=== PATIENT | female | born 1970 | race Hispanic/Latino ===

== ENCOUNTER 2021-11-29 22:30 | Emergency (ER) | payer OTHER ==
--- OUTSIDE RECORDS SUMMARY | 2021-11-29 22:41 | XMS REPORT | Continuity of Care Document ---
:1970 Author Organization [facility] t Address [address] [place] [address] Care Team Providers Name Role Phone Kaylin Henry Attending Clinician Unavailable Joanna Sainz Attending Clinician Unavailable Mehran Stevens Attending Clinician Unavailable Michael Jenkins Attending Clinician Unavailable Cordell Martin Attending Clinician Unavailable Petey Lyles Attending Clinician Unavailable Provider, Marleny Davalos Attending Clinician Unavailable Kaylin Henry Attending Clinician Unavailable Kaylin Henry Admitting Clinician Unavailable Petey Lyles Admitting Clinician Unavailable Payers Payer Name Policy Type Policy Number Effective Date Expiration Date S lester Breast and E [id number] 2020 Cervical Cancer 00:00:00 00:00:00 Screen Problems Condition Condition Condition Status Onset Resolution Last Treating Co mments Source Name Details Category Date Date Treatment Clinician Date Abscess of Abscess of Diagnosis Active [facility] ent Clinics Breast Breast Diagnosis Active [facility] cancer, cancer, [facility] - right right [facility] ent Clinics Stage IV Stage IV Problem Active [facility] breast breast [facility] - cancer in cancer in St female female [facility] Problem Condition [facility] Transamina Problem Active [facility]) Abscess Problem Active [facility] and [facility] - cellulitis St. of gluteal [place] region ([place]) Transfusio Problem Active [facility] n-dependen [facility] anemia [facility]) Neoplasm Problem Active [facility] related [facility] pain [facility] Carcinoma Problem Active [facility] of breast [facility] - treated St. with [place] adjuvant ([place]) chemothera py Allergies, Adverse Reactions, Alerts Allergy Allergy Status Severity Reaction(s) Onset Inactive Treating Comm ents Source Name Type Date Date Clinician No Known DA Active U 2019-0 STLSJX Allergie 6-08 s 00:00: 00 No Known DA Active U [address] Allergie 5-30 [facility] s 00:00: St 00 [place] Family History Family Member Diagnosis Comments Start Date Stop Date Source Paternal aunt Family Breast Cancer? [facility] Yes: Bilateral breast Toni eph ([place]) cancer in early 40s Social History Social Habit Start Date Stop Date Quantity Comments Source ASSERTION [facility] ([place]) Sex Assigned At [birth year] Female [facility] - 00:00:00 00:00:00 [facility] Smoking Status Start Date Stop Date Source Unknown if ever smoked [facility] ([place]) Medications Ordered Filled Start Stop Current Ordering Indication Dosage Frequency Signature Comments Components Source Medication Medication Date Date Medication? Clinician (SIG) Name Name Tramadol Tramadol 0 Yes 1TABLET Bedtime [facility] Hcl/Acetami Hcl/Acetami 6-15 L ukes - nophen nophen 15:06: St. 00 [place] ([place]) Tramadol Tramadol 2020-0 Yes 1TABLET Bedtime [facility] Hcl/Acetami Hcl/Acetami 6-15 L ukes - nophen nophen 15:06: St. 00 [place] ([place]) Tramadol Tramadol 2020-0 Yes 1TABLET Bedtime [facility] Hcl/Acetami Hcl/Acetami 6-15 L ukes - nophen nophen 15:06: St. 00 [place] ([place]) Sulfamethox 2020-0 Yes 1TAB Twice [facility] azole/Trime 6-02 Daily [facility] - thoprim 14:39: St. 00 [place] ([place]) Morphine Er Morphine Er 2020-0 Yes 15MG Every [address] 6-02 Hours [facility] - 14:39: St. 00 [place] ([place]) Morphine Er Morphine Er 2020-0 Yes 15MG Every [address] 6-02 Hours [facility] - 14:39: St. 00 [place] ([place]) Morphine Er Morphine Er 2020-0 Yes 15MG Every [address] 6-02 Hours [facility] - 14:39: St. 00 [place] ([place]) Morphine Er Morphine Er 2020-0 Yes 15MG Every [address] 6-02 Hours [facility] - 14:39: St. 00 [place] ([place]) Sulfamethox 2020-0 2020- No 1TAB Twice [facility] azole/Trime 6- 06-15 Daily [facility]ukes - thoprim 14:39: 15:06 St. 00 :00 [place] ([place]) Sulfamethox 2020-0 2020- No 1TAB Twice [facility] azole/Trime 6-02 06-15 Daily Lukes - thoprim 14:39: 15:06 St. 00 :00 [place]) Sulfamethox 2020-0 2020- No 1TAB Twice [facility] azole/Trime 6- 06-15 Daily [facility]ukes - thoprim 14:39: 15:06 St. 00 :00 [place] ([place]) Naproxen Naproxen 2020-0 Yes 250MG Q8H [facility] 5-30 [facility] - 21:24: St. 00 [place] ([place]) Naproxen Naproxen 2020-0 Yes 250MG Q8H [facility] 5-30 [facility] - 21:24: St. 00 [place] ([place]) Naproxen Naproxen 2020-0 Yes 250MG Q8H [facility] 5-30 [facility] - 21:24: St. 00 [place] ([place]) Naproxen Naproxen 2020-0 Yes 250MG Q8H [facility] 5-30 [facility] - 21:24: St. 00 [place] ([place]) Acetaminoph Acetaminoph 2020-0 Yes 650MG Every [address] en en 5-30 Hours [facility] - 14:29: St. 00 [place] ([place]) Acetaminoph Acetaminoph 2020-0 Yes 650MG Every [address] en en 5-30 Hours [facility] - 14:29: St. 00 [place] ([place]) Acetaminoph Acetaminoph 2020-0 Yes 650MG Every [address] en en 5-30 Hours [facility] - 14:29: St. 00 [place]) Acetaminoph Acetaminoph 2020-0 Yes 650MG Every [address] en en 5-30 Hours [facility]ukes - 14:29: St. 00 [place]) Acetaminoph Acetaminoph 2020-0 Yes 650MG Every [address] en en 5-30 Hours [facility]ukes - 14:29: St. 00 [place]) Patient Patient Yes Francisco not [facility] denies any denies any Steines defined [facility]ukes - daily daily St medications medications [facility] Vital Signs Vital Name Observation Time Observation Value Comments Source Weight Bearing Status 2021-02-15 05:24:55 Not specified Weight Bearing Status 2021-02-15 03:13:35 Not specified Weight Bearing Status 2021-02-15 03:13:19 Not specified Weight Bearing Status 2021-02-15 03:13:17 Not specified Weight Bearing Status 2021-02-15 02:10:15 Not specified Weight Bearing Status 2021-02-15 02:05:02 Not specified Weight Bearing Status 2021-02-15 01:59:41 Not specified Weight Bearing Status 2021-02-15 01:58:55 Not specified Weight Bearing Status 2021-02-15 01:52:50 Not specified Weight Bearing Status 2021-02-15 01:51:30 Not specified Weight Bearing Status 2021-02-15 01:01:45 Not specified Weight Bearing Status 2021-02-15 05:24:55 Not specified Height 2021-02-15 05:24:55 61 Weight 2021-02-15 05:24:55 1776 Weight Bearing Status 2021-02-15 03:13:35 Not specified Height 2021-02-15 03:13:35 61 Weight 2021-02-15 03:13:35 1776 Weight Bearing Status 2021-02-15 03:13:19 Not specified Height 2021-02-15 03:13:19 61 Weight 2021-02-15 03:13:19 1776 Weight Bearing Status 2021-02-15 03:13:17 Not specified Height 2021-02-15 03:13:17 61 Weight 2021-02-15 03:13:17 1776 Weight Bearing Status 2021-02-14 18:40:47 Not specified Height 2021-02-14 18:40:47 61 Weight 2021-02-14 18:40:47 1776 Weight Bearing Status 2021-02-14 18:40:46 Not specified Weight Bearing Status 2021-02-14 18:39:51 Not specified Weight Bearing Status 2021-02-14 18:31:36 Not specified Weight Bearing Status 2021-02-14 18:17:23 Not specified WEIGHT 2020-10-27 09:25:00 50.304171 kg HEIGHT 2020-10-27 09:25:00 154.94 cm Weight Bearing Status 2021-02-15 03:13:35 Not specified Weight Bearing Status 2021-02-15 03:13:19 Not specified Weight Bearing Status 2021-02-15 03:13:17 Not specified Weight Bearing Status 2021-02-14 18:47:50 Not specified Weight Bearing Status 2021-02-14 17:25:32 Not specified Weight Bearing Status 2021-02-14 17:20:15 Not specified Weight Bearing Status 2021-02-14 17:20:13 Not specified Weight Bearing Status 2021-02-14 17:08:52 Not specified Weight Bearing Status 2021-02-14 17:05:44 Not specified Weight Bearing Status 2021-02-14 16:16:21 Not specified Weight Bearing Status 2021-02-14 16:16:19 Not specified Weight Bearing Status 2021-02-15 01:44:51 Not specified Weight Bearing Status 2021-02-14 17:19:25 Not specified Weight Bearing Status 2021-02-14 15:57:05 Not specified Weight Bearing Status 2021-02-14 15:51:54 Not specified Weight Bearing Status 2021-02-14 15:42:03 Not specified Weight Bearing Status 2021-02-14 15:41:03 Not specified Weight Bearing Status 2021-02-14 15:15:47 Not specified Weight Bearing Status 2021-02-14 13:39:27 Not specified WEIGHT 2020-09-22 12:13:00 51.58798 kg HEIGHT 2020-09-22 12:13:00 154.94 cm WEIGHT 2020-09-15 11:08:00 51.69775 kg HEIGHT 2020-09-15 11:08:00 154.94 cm WEIGHT 2020-08-25 11:09:00 53.815525 kg HEIGHT 2020-08-25 11:09:00 154.94 cm WEIGHT 2020-08-15 12:47:00 53.663487 kg HEIGHT 2020-08-15 12:47:00 154.94 cm WEIGHT 2020-08-08 10:03:00 53.309492 kg HEIGHT 2020-08-08 10:03:00 154.94 cm WEIGHT 2020-07-25 11:30:00 53.139221 kg HEIGHT 2020-07-25 11:30:00 154.94 cm WEIGHT 2020-07-18 10:43:00 53.551553 kg HEIGHT 2020-07-18 10:43:00 154.94 cm WEIGHT 2020-07-10 10:30:00 53.765093 kg HEIGHT 2020-07-10 10:30:00 154.94 cm WEIGHT 2020-06-27 11:19:00 53.020537 kg HEIGHT 2020-06-27 11:19:00 154.94 cm WEIGHT 2020-06-20 13:59:00 53.419526 kg HEIGHT 2020-06-20 13:59:00 154.94 cm WEIGHT 2020-06-12 10:20:00 52.235524 kg HEIGHT 2020-06-12 10:20:00 154.94 cm WEIGHT 2020-05-22 10:39:00 52.749324 kg HEIGHT 2020-05-22 10:39:00 154.94 cm WEIGHT 2020-05-15 13:29:00 52.986698 kg HEIGHT 2020-05-15 13:29:00 154.94 cm WEIGHT 2020-04-09 14:59:00 51.233249 kg HEIGHT 2020-04-09 14:59:00 154.94 cm WEIGHT 2020-04-02 10:55:00 51.216545 kg HEIGHT 2020-04-02 10:55:00 154.94 cm WEIGHT 2020-03-26 10:02:00 48.250368 kg HEIGHT 2020-03-26 10:02:00 154.94 cm WEIGHT 2020-03-12 10:58:00 48.110033 kg HEIGHT 2020-03-12 10:58:00 154.94 cm WEIGHT 2020-03-05 12:22:00 48.047520 kg HEIGHT 2020-03-05 12:22:00 154.94 cm WEIGHT 2020-02-27 10:57:00 48.762944 kg HEIGHT 2020-02-27 10:57:00 154.94 cm WEIGHT 2021-02-13 17:43:57 55.8 kg HEIGHT 2021-02-13 17:43:57 165.1 cm WEIGHT 2021-02-13 17:15:18 55.8 kg HEIGHT 2021-02-13 17:15:18 165.1 cm WEIGHT 2021-02-13 17:13:30 55.8 kg HEIGHT 2021-02-13 17:13:30 165.1 cm WEIGHT 2021-02-13 17:43:56 57.249622 kg HEIGHT 2021-02-13 17:43:56 165.1 cm WEIGHT 2021-02-13 17:02:40 57.542337 kg HEIGHT 2021-02-13 17:02:40 165.1 cm WEIGHT 2021-02-13 16:35:42 57.078997 kg HEIGHT 2021-02-13 16:35:42 165.1 cm WEIGHT 2021-02-13 16:35:06 57.571665 kg HEIGHT 2021-02-13 16:35:06 165.1 cm WEIGHT 2021-02-13 16:30:59 57.268872 kg HEIGHT 2021-02-13 16:30:59 165.1 cm WEIGHT 2021-02-13 16:30:55 57.761644 kg HEIGHT 2021-02-13 16:30:55 165.1 cm WEIGHT 2021-02-13 16:28:06 57.288265 kg HEIGHT 2021-02-13 16:28:06 165.1 cm WEIGHT 2021-02-13 16:26:48 57.567266 kg HEIGHT 2021-02-13 16:26:48 165.1 cm WEIGHT 2021-02-13 16:26:29 57.082119 kg HEIGHT 2021-02-13 16:26:29 165.1 cm WEIGHT 2021-02-13 16:26:18 57.269293 kg HEIGHT 2021-02-13 16:26:18 165.1 cm WEIGHT 2021-02-13 16:26:02 57.497130 kg HEIGHT 2021-02-13 16:26:02 165.1 cm WEIGHT 2021-02-13 16:25:56 57.142721 kg HEIGHT 2021-02-13 16:25:56 165.1 cm Body Temperature 2019 14:58:00 98.1 [degF] [facility] Heart Rate 2019 14:58:00 81 /min [facility] Respiratory rate 2019 14:58:00 16 /min [facility] BP Systolic 2019 14:58:00 130 mm[Hg] [facility] BP Diastolic 2019 14:58:00 80 mm[Hg] [facility] Body Temperature 2019-11-16 17:05:00 98.7 [degF] [facility] Heart Rate 2019-11-16 17:05:00 83 /min [facility] Respiratory rate 2019-11-16 17:05:00 18 /min [facility] BP Systolic 2019-11-16 17:05:00 118 mm[Hg] [facility] BP Diastolic 2019-11-16 17:05:00 62 mm[Hg] [facility] Body Temperature 2019-09-25 09:15:00 98.6 [degF] [facility] Heart Rate 2019-09-25 09:15:00 76 /min [facility] Respiratory rate 2019-09-25 09:15:00 20 /min [facility] Oxygen saturation by 2019-09-25 09:15:00 97 /min [facility] - Pulse oximetry [facility] BP Systolic 2019-09-25 09:15:00 97 mm[Hg] [facility] BP Diastolic 2019-09-25 09:15:00 59 mm[Hg] [facility] [place] [facility] Height 2019-09-24 15:12:00 165.1 cm [facility] [place] [facility] Weight 2019-09-24 15:12:[address] [facility] BMI (Body Mass Index) 2019-09-24 15:12:00 20.5 kg/m2 [facility] [place] [facility] Body Temperature 2019-09-11 15:56:00 99.8 [degF] [facility] [place] [facility] Heart Rate 2019-09-11 15:56:00 86 /min [facility] [place] [facility] Respiratory rate 2019-09-11 15:56:00 16 /min [facility] Oxygen saturation by 2019-09-11 15:56:00 96 /min [facility] St[facility] [place] - Pulse oximetry [facility] BP Systolic 2019-09-11 15:56:00 110 mm[Hg] [facility] [place] [facility] BP Diastolic 2019-09-11 15:56:00 60 mm[Hg] [facility] [place] [facility] Height 2019-09-10 12:34:00 165.1 cm [facility] Weight 2019-09-10 12:34:00 57.19 kg [facility] (Body Mass Index) 2019-09-10 12:34:00 20.9 kg/m2 [facility] [place] [facility] Procedures Procedure Date / Time Performed Performing Clinician [facility] e CT Guided Biopsy S/I 2019-09-25 00:00:[address] [facility] [facility] Pelvis WO Con 2019-09-25 00:00:[address] [facility] [facility] XR Chest 1 View Portable 2019-09-11 00:00:[address] [facility] XR Fluoro Inherent To 2019-09-11 00:00:[address] [facility] NM Bone Scan STANDARD 2019-09-10 00:00:[address] [facility] MRI Brain W WO Con 2019-09-10 00:00:[address] [facility] US Gallbladder RUQ 2019-09-09 00:00:[address] [facility] Chest Abd Pelvis W 2019-09-09 00:00:[address] [facility] Con [facility] Pelvis W Con 2019-09-08 00:00:[address] [facility] EKG 12 Lead in Emergency 2019-09-08 00:00:[address] [facility] Room [facility] Blood Culture 2019-09-08 00:00:[address] [facility] - [facility] Bacterial Culture 2019-09-08 00:00:[address] [facility] - [facility] Encounters Start End Encounter Admission Attending Care Care Encounter Source Date/Time Date/Time Type Type Clinicians Facility Department ID 2021-07-04 Outpatient [facility] [id number] [place] 05:44:15 [id number] [facility] 2021-05-06 Outpatient GRETEL Henry [facility] [id number] 14:12:39 Kaylin [id number] [facility] ent Clinics 2021-05-[address] [facility] [id number] 11:28:48 Kaylin [id number] [facility] ent Clinics 2020-02-11 Inpatient R Emeli, [facility] [id number] 10:30:00 Joanna -[id number] [facility] 2020-01-28 Inpatient R Emeli, [facility] [id number] 09:00:00 Joanna -[id number] [facility] 2020-01-23 Inpatient R Emeli, [facility] [id number] 11:00:00 Joanna -[id number] Kwesi Olson 2020-01-04 [facility] [id number] 00[facility]00:00 [facility] -[id number] Kwesi Olson 2021-11-19 2021-11-19 [facility] [id number] 11:45:00 11:45:00 [facility] -[id number] Errol Olson 2021-08-12 2021-08-12 Outpatient R Emeli, STLSJX STJX [id number] STLSJX 12:45:00 12:46:00 [facility] -[id number] 2021-04-23 2021-04-23 [id number] [facility] 08:53:00 08:54:00 [facility] -[id number] 2021-03-04 2021-03-[address] [facility] [id number] [facility] 08:57:00 12:58:00 , Mehran -[id number] Brenda Olson 2021-03-02 2021-03-02 Outpatient R Gregory, [facility] [id number] 08:42:00 09:00:00 Michael -[id number] Errol Olson 2021-03-01 2021-03-01 Outpatient R Gregory, [facility] [id number] 00:00:00 00:00:00 Michael -[id number] Errol Olson 2021-02-27 2021-02-27 Outpatient R Gregory, [facility] [id number] 13:26:00 13:26:00 Michael -[id number] Errol Olson 2021-02-26 2021-02-26 Outpatient R Gregory, [facility] [id number] 08:29:00 08:29:00 Michael -[id number] Errol Olson 2021-02-25 2021-02-25 Outpatient R Gregory, [facility] [id number] 10:26:00 10:26:00 Michael -[id number] Lugeovanny s [facility] [place] 2021-02-24 2021-02-[address] [facility] [id number] 08:41:00 08:41:00 Michael -[id number] Errol s [facility] [place] 2021-02-23 2021-02-[address] [facility] [id number] 08:44:00 08:44:00 Michael -[id number] Errol s [facility] [place] 2021-02-20 2021-02-[address] [facility] [id number] 09:19:00 09:19:00 Michael -[id number] Errol s [facility] [place] 2021-02-19 2021-02-[address] [facility] [id number] 08:45:00 08:45:00 Michael -[id number] Errol s [facility] [place] 2021-02-18 2021-02-[address] [facility] [id number] 08:21:00 08:21:00 Michael -[id number] Errol s [facility] [place] 2021-02-17 2021-02-[address] [facility] [id number] 08:35:00 08:35:00 Michael -[id number] Errol s [facility] [place] 2021-02-10 2021-02-[address] [facility] [id number] 08:27:00 14:55:00 Michael -[id number] Errol s [facility] [place] 2021-02-09 2021-02-[address] [facility] [id number] 07:13:00 07:13:00 Michael -[id number] Errol s [facility] [place] 2021-02-06 2021-02-[address] [facility] [id number] 08:38:00 23:59:00 Michael -[id number] Errol Olson 2021-02-05 2021-02-05 Outpatient R Gregory, [facility] [id number] 08:36:00 08:36:00 Michael -[id number] Errol Olson 2021-02-04 2021-02-04 Outpatient R Gregory, [facility] [id number] 08:45:00 08:45:00 Michael -[id number] Errol Olson 2021-02-03 2021-02-03 Outpatient R Gregory, [facility] [id number] 08:48:00 08:48:00 Michael -[id number] Erorl Olson 2021-02-02 2021-02-02 Outpatient R Gregory, [facility] [id number] 08:46:00 08:46:00 Michael -[id number] Errol Olson 2021-01-30 2021-01-30 Outpatient R Gregory, [facility] [id number] 08:37:00 08:37:00 Michael -[id number] Errol Olson 2021-01-29 2021-01-29 Outpatient R Gregory, [facility] [id number] 08:44:00 08:44:00 Michael -[id number] Errol Olson 2021-01-28 2021-01-28 Outpatient R Gregory, [facility] [id number] 09:26:00 09:26:00 Michael -[id number] Errol Olson 2021-01-26 2021-01-26 Outpatient R Gregory, [facility] [id number] 13:29:00 13:29:00 Michael -[id number] Errol Olson 2021-01-20 2021-01-20 Outpatient R Gregory, [facility] [id number] 03:00:00 03:00:00 Michael -[id number] Errol Olson 2021-01-14 2021-01-14 Outpatient R Emeli, STLSJX STLSJX [id number] STLSJX 09:35:00 09:36:00 Joanna -[id number] 2020-11-19 2020-11-19 Outpatient R Emeli, STLSJ [facility] [id number] 09:00:00 14:58:00 [facility] -[id number] Lu s [facility] 2020-10-27 2020-10-27 Outpatient R Emeli, STLSJX STLSJX [id number] STLSJX 08:30:00 08:30:00 Joanna -[id number] 2020-10-21 2020-10-21 Outpatient R Emeli, [facility]LS[facility] [id number] 10:02:00 10:03:00 [facility] -[id number] Luge[place]anny s [facility] [place] 2020-10-14 2020-10-14 Outpatient R Emeli, STLSJX STLSJX [id number] STLSJX 10:12:00 10:13:00 [facility] -[id number] 2020-10-06 2020-10-06 [facility] [id number] 10:00:00 10:00:00 [facility] -[id number] Luge[place]anny s [place] 2020-09-29 2020-09-29 Outpatient R Emeli, STLSJX STLSJX [id number] STLSJX 10:08:00 10:09:00 [facility] -[id number] 2020-09-22 2020-09-22 Outpatient R Emeli, [facility]LS[facility] [id number] 11:16:00 13:56:00 [facility] -[id number] Luge[place]anny s [place] 2020-09-15 2020-09-15 Outpatient R Emeli, [facility] [id number] 11:03:00 15:21:00 [facility] -[id number] [facility] 2020-09-12 2020-09-12 Inpatient R Emeli, ST[facility] [id number] 10:00:00 10:00:00 [facility] -[id number] [facility] [place] 2020-09-09 2020-09-09 Outpatient [facility] [id number] 11:00:00 11:00:00 Joanna -[id number] [facility] [place] 2020-08-25 2020-08-25 Outpatient R Emeli, [facility] [id number] 11:02:00 13:57:00 Joanna -[id number] [facility] [place] 2020-08-22 2020-08-22 Outpatient Emeli, [facility] [id number] 10:00:00 10:00:00 Joanna -[id number] [facility] [place] 2020-08-15 2020-08-15 Outpatient R Emeli, [facility] [id number] 10:47:00 14:54:00 Joanna -[id number] [facility] [place] 2020-08-08 2020-08-08 Outpatient Emeli, [facility] [id number] 10:00:00 10:00:00 Joanna -[id number] [facility] [place] 2020-07-25 2020-07-25 Outpatient Emeli, [facility] [id number] 10:00:00 10:00:00 Joanna -[id number] [facility] [place] 2020-07-18 2020-07-18 Outpatient Emeli, [facility] [id number] 11:00:00 11:00:00 Joanna -[id number] [facility] [place] 2020-07-10 2020-07-10 Outpatient Emeli, [facility] [id number] 09:00:00 09:00:00 Joanna -[id number] [facility] [place] 2020-07-08 2020-07-08 [facility] [id number] 10:00:00 10:00:00 Joanna -[id number] [facility] [place] 2020-06-27 2020-06-27 Outpatient Mario, [place] [facility] [id number] [facility] 10:00:00 10:00:00 -[id number] [facility] [place] 2020-06-20 2020-06-20 Outpatient Mario, Cordell [facility] [id number] [facility] 10:00:00 10:00:00 -[id number] [facility] [place] 2020-06-12 2020-06-12 Outpatient Emeli, [facility] [id number] [facility] 10:00:00 10:00:00 Joanna -[id number] [facility] 2020-06-02 2020-06-02 Outpatient Emeli, [facility] [id number] [facility] 13:00:00 13:00:00 Joanna -[id number] [facility] 2020-05-29 2020-05-29 Outpatient Emeli, [facility] [id number] [facility] 11:30:00 11:30:00 Joanna -[id number] [facility] 2020-05-22 2020-05-22 Outpatient Emeli, [facility] [id number] [facility] 10:00:00 10:00:00 Joanna -[id number] [facility] 2020-05-15 2020-05-15 Outpatient Emeli, [facility] [id number] [facility] 10:00:00 10:00:00 Joanna -[id number] [facility] 2020-05-12 2020-05-12 Outpatient Emeli, [facility] [id number] [facility] 10:00:00 10:00:00 Joanna -[id number] [facility] 2020-04-23 2020-04-23 Inpatient R Emeli, [facility] [id number] [facility] [address] 13:00:00 13:00:00 Joanna -[id number] [facility] 2020-04-22 2020-04-22 Outpatient Emeli, [facility] [id number] [facility] [address] 10:00:00 10:00:00 Joanna -[id number] [facility] 2020-04-09 2020-04-09 Outpatient Emeli, [facility] [id number] [facility] 10:00:00 10:00:00 Joanna -[id number] [facility] 2020-04-02 2020-04-02 Outpatient Emeli, [facility] [id number] [facility] 11:00:00 11:00:00 Joanna -[id number] [facility] 2020-03-26 2020-03-26 Outpatient Emeli, [facility] [id number] [facility] St 10:00:00 10:00:00 Joanna -[id number] [facility] [place] 2020-03-12 2020-03-12 Outpatient Emeli, [facility] [id number] [address] 10:00:00 10:00:00 Joanna -[id number] [facility] [place] 2020-03-05 2020-03-05 Outpatient Emeli, [facility] [id number] 10:00:00 10:00:00 Joanna -[id number] [facility] [place] 2020-02-27 2020-02-27 Outpatient Emeli, [facility] [id number] 09:00:00 09:00:00 Joanna -[id number] [facility] [place] 2020-02-14 2020-02-14 Outpatient Emeli, [facility] [id number] 00:00:00 00:00:00 Joanna -[id number] [facility] [place] 2020-02-08 2020-02-08 Outpatient R Emeli, [facility] [id number] 11:07:00 11:07:00 Joanna -[id number] [facility] [place] 2020-01-25 2020-01-25 Outpatient Emeli, [facility] [id number] 09:00:00 09:00:00 Joanna -[id number] [facility] [place] 2020-01-18 2020-01-18 Outpatient Emeli, [facility] [id number] 10:00:00 10:00:00 Joanna -[id number] [facility] [place] 2019 2019 [id number] 09:14:00 15:06:00 Surgical [facility] 86 Luke s - Day Care [facility] Ctr-OP St. ONCOLOGY [facility] TREATMENT ([place] ) ROOM 2019 2019 Outpatient R Cordell Martin [facility] [id number] [facility] 09:14:00 09:14:00 -[id number] [facility] [place] 2019-12-13 2019-12-13 Registered [facility] Joseph L000 [id number] [facility] St. 09:40:00 09:40:00 Clinical Regional 56 Luke s - [facility] Ctr-LAB - [place] [facility] 2019-11-22 2019-11-22 Registered [facility] Joseph L000 [id number] [facility] St. 18:04:00 18:04:00 Referred Regional 81 Luke s - [facility]. Ctr-LAB [facility] CENTER ([place]) 2019-11-16 2019-11-16 Departed R Emeli [facility] Joseph J000 [id number] [facility] St. 10:48:00 17:07:00 Surgical [facility] 50 Luke s - Day Care [facility] Ctr-OP St. ONCOLOGY [place] TREATMENT ([place] ) ROOM 2019-11-16 2019-11-[address] [facility] [id number] 10:48:00 17:07:00 Joanna -[id number] [facility] [place] 2019-11-16 2019-11-16 Registered [facility] Joseph L000 [id number] [facility] 09:18:00 09:18:00 Clinical [facility] [place] [facility] 2019-11-02 2019-11-02 [id number] 08:24:00 13:34:00 Recurring Michael [address] es - [facility] . Ctr-CANCER [facility] ([facility]) 2019-11-02 2019-11-02 Outpatient R Gregory, [facility] [id number] 08:24:00 13:34:00 Michael -[id number] Errol Olson 2019-11-01 2019-11-01 Outpatient R Gregory, [facility] [id number] 07:40:00 07:40:00 Michael -[id number] Errol Olson 2019-10-31 2019-10-31 Outpatient R Gregory, [facility] [id number] 10:35:00 10:35:00 Michael -[id number] Errol Olson 2019-10-30 2019-10-30 Outpatient R Gregory, [facility] [id number] 10:01:00 10:01:00 Michael -[id number] Errol Olson 2019-10-29 2019-10-29 Outpatient R Gregory, [facility] [id number] 10:33:00 10:33:00 Michael -[id number] Errol Olson 2019-10-26 2019-10-26 Outpatient R Gregory, [facility] [id number] 09:59:00 09:59:00 Michael -[id number] Errol Olson 2019-10-25 2019-10-25 Outpatient R Gregory, [facility] [id number] 07:53:00 07:53:00 Michael -[id number] Errol Olson 2019-10-24 2019-10-24 Outpatient R Gregory, [facility] [id number] 08:26:00 08:26:00 Michael -[id number] Errol Olson 2019-10-23 2019-10-23 Outpatient R Gregory, [facility] [id number] 08:24:00 08:24:00 Michael -[id number] Errol Olson 2019-10-22 2019-10-22 Outpatient R Gregory, [facility] [id number] 09:50:00 09:50:00 Michael -[id number] [facility]rol s [facility] [place] 2019-10-18 2019-10-[address] [facility] [id number] 10:37:00 10:37:00 Michael -[id number] Errol Olson 2019-10-17 2019-10-[address] [facility] [id number] 10:00:00 10:00:00 Michael -[id number] Errol s [facility] [place] 2019-10-08 2019-10-08 Outpatient [facility] [id number] 10:00:00 10:00:00 General General and Yamel kes - and Bariatric Bariatric Surgery [facility] 2019-10-05 2019-10-05 Outpatient [facility] [id number] 09:09:00 09:09:00 General General and Yamel kes - and Bariatric Bariatric Surgery [facility] 2019-09-25 2019-09-25 Departed R Emeli, [facility] [id number] [facility] 08:56:00 13:05:00 Surgical Joanna [facility] 91 Luke s - Day [facility] ([place]) 2019-09-25 2019-09-25 Outpatient R Emeli, [facility] [id number] 08:56:00 08:56:00 Joanna -[id number] Errol Olson 2019-09-24 2019-09-24 Outpatient R Gregory, [facility] [id number] 09:14:00 09:14:00 Michael -[id number] Errol Olson 2019-09-20 2019-09-20 Outpatient Emeli, [facility] [id number] 00:00:00 00:00:00 Joanna -[id number] Errol Olson 2019-09-08 2019-09-11 Discharged Petey Varma [facility] J [id number] [facility] 15:38:00 16:58:00 Inpatient Regional 03 Brenda es - [facility]. Ctr-[facility] ONCOLOGY (Hardeep an) 2019-09-08 2019-09-11 Discharged ER Petey Lyles [facility] [id number] [facility] St. 15:38:00 16:58:00 Inpatient Regional 03 Brenda es - [facility] ONCOLOGY (Hardeep an) 2019-09-08 2019-09-11 Inpatient ER Petey Lyles [facility] MED [id number] [facility] St 15:38:00 16:58:00 -[id number] [facility] [place] 2019-09-08 2019-09-08 Emergency ER Provider, [facility] [id number] [facility] St 09:53:00 09:53:00 Express -[id number] [facility] 2019-09-07 2019-09-07 Registered [facility] [id number] [facility] St. 16:27:00 16:27:00 Clinical Regional 44 [facility] Results Test Description Test Time Test Comments Results Result Comments Source Packed Cells - 2021-03-04 [id number] Leukoreduced 12:53:00 OP [facility] TFUSE 03/04/21 1013 Type Screen 2021-03-04 12:53:00 Test Item Value Reference Range Interpretation Comme nts Blood Type Rh (test code = BT) O POSITIVE Antibody Screen (test code = ABSC) NEGATIVE Received Blood Or Been w/in Past 90 Days? [id number] 15:12:00 Test Item Value Reference Range Interpretation Comments Hematology (test code = WBCT) 5.2 thou/uL 4.8-10.8 N Hematology (test code = RBCT) 3.39 mill/uL 4.20-5.40 L Hematology (test code = HGBT) 10.2 g/dL 12.0-16.0 L Hematology (test code = HCTT) 32.1 % 36.0-47.0 L Hematology (test code = MCV) 94.5 fL 78.0-98.0 N Hematology (test code = MCH) 30.0 pg 27.0-31.0 N Hematology (test code = MCHC) 31.8 g/dL 32.0-36.0 L Hematology (test code = RDW) 18.1 % 11.5-14.5 H Hematology (test code = PLTT) 251 thou/uL 130-400 N Hematology (test code = MPV) 7.9 fL 7.4-10.4 N Hematology (test code = %NEUT) 66.0 % 42.0-75.0 N Hematology (test code = %LYMPH) 15.2 % 21.0-51.0 L Hematology (test code = %MONO) 13.0 % 0.0-10.0 H Hematology (test code = %EOS) 5.7 % 0.0-10.0 N Hematology (test code = %BASO) 0.2 % 0.0-1.0 N Hematology (test code = NEUT#) 3.5 thou/uL 1.40-6.50 N Hematology (test code = LYMPH#) 0.8 thou/uL 1.20-3.40 L Hematology (test code = MONO#) 0.7 thou/uL 0.11-0.59 H Hematology (test code = EOS#) 0.3 thou/uL 0.0-0.7 N Hematology (test code = BASO#) 0.0 thou/uL 0.0-0.2 N [employer] - [id number] 14:33:[id number] [facility] TFUSE 11/19/20 1219 [id number] [facility] TFUSE 11/19/20 0957Type [id number] 14:33:00 Test Item Value Reference Range Interpretation Comments Blood Type Rh (test code = BT) O POSITIVE Antibody Screen (test code = ABSC) NEGATIVE Received Blood Or Been w/in Past 90 Days? [id number] 12:15:00 Test Item Value Reference Range Interpretation Comments Hematology (test code = 5.4 thou/uL 4.8-10.8 N WBCT) Hematology (test code = 3.22 mill/uL 4.20-5.40 L RBCT) Hematology (test code = 9.7 g/dL 12.0-16.0 L HGBT) Hematology (test code = 29.4 % 36.0-47.0 L HCTT) Hematology (test code = MCV) 91.2 fL 78.0-98.0 N Hematology (test code = MCH) 30.0 pg 27.0-31.0 N Hematology (test code = 32.9 g/dL 32.0-36.0 N MCHC) Hematology (test code = RDW) 13.9 % 11.5-14.5 N Hematology (test code = 313 thou/uL 130-400 N PLTT) Hematology (test code = MPV) 6.8 fL 7.4-10.4 L Hematology (test code = NE) 52 % 42-75 N Hematology (test code = BA) 9 % 5-11 N Hematology (test code = LY) 24 % 21-51 N Hematology (test code = LA) 2 % 0-10 N Hematology (test code = MO) 13 % 0-10 H Hematology (test code = Appears Adequate PCOMMENT) Hematology (test code = MC) Normal Type [id number] 10:56:00 Test Item Value Reference Range Interpretation Comments Blood Type Rh (test code = BT) O POSITIVE Antibody Screen (test code = ABSC) NEGATIVE Received Blood Or Been w/in Past 90 Days? UNKNOWNReceived Blood Or Been w/in Past 90Days? YESPacked Cells - [id number] 10:56:00 [id number] [facility] TFUSE 01/04/20 1649 [id number] [facility] TFUSE 01/04/20 1925Point of Care [id number] 15:02:00 Test Item Value Reference Range Interpretation Comments Point of Care 0.8 mg/dL 0.6-1.3 N Testing (test code = CREATTPOC) Point of Care 76 Reference Rang e for Testing (test code = Estimat ed GFR: Greater EGFRMDRDPOC) than 90 mL/min/ 1.73 m2NOTE:The MDRD equation has not been va lidated for use with th eelderly (over 70 years of age), women, patientswith se rious comorbid condit ion or persons with ex tremes ofbody size, mu scle mass, or nutrit ional status. P[employer] Cells - [id number] 14:06:[id number] [facility] TFUSE 01/25/20 1144 [id number] [facility] TFUSE 01/25/20 0929Type [id number] 14:06:00 Test Item Value Reference Range Interpretation Comments Blood Type Rh (test code = BT) O POSITIVE Antibody Screen (test code = ABSC) NEGATIVE Received Blood Or Been w/in Past 90 Days? [id number] 22:31:00 Test Item Value Reference Range Interpretation Comments Hematology (test code = WBCT) 5.1 thou/uL 4.8-10.8 N Hematology (test code = RBCT) 2.93 mill/uL 4.20-5.40 L Hematology (test code = HGBT) 8.9 g/dL 12.0-16.0 L Hematology (test code = HCTT) 25.3 % 36.0-47.0 L Hematology (test code = MCV) 86.4 fL 78.0-98.0 N Hematology (test code = MCH) 30.2 pg 27.0-31.0 N Hematology (test code = MCHC) 35.0 g/dL 32.0-36.0 N Hematology (test code = RDW) 15.0 % 11.5-14.5 H Hematology (test code = PLTT) 265 thou/uL 130-400 N Hematology (test code = MPV) 6.7 fL 7.4-10.4 L Hematology (test code = %NEUT) 80.8 % 42.0-75.0 H Hematology (test code = %LYMPH) 7.4 % 21.0-51.0 L Hematology (test code = %MONO) 10.0 % 0.0-10.0 N Hematology (test code = %EOS) 1.6 % 0.0-10.0 N Hematology (test code = %BASO) 0.2 % 0.0-1.0 N Hematology (test code = NEUT#) 4.1 thou/uL 1.40-6.50 N Hematology (test code = LYMPH#) 0.4 thou/uL 1.20-3.40 L Hematology (test code = MONO#) 0.5 thou/uL 0.11-0.59 N Hematology (test code = EOS#) 0.1 thou/uL 0.0-0.7 N Hematology (test code = BASO#) 0.0 thou/uL 0.0-0.2 N P[employer] Cells - [id number] 15:06:[id number] [facility] TFUSE 12/14/19 1011 [id number] [facility] TFUSE 12/14/19 1234Type [id number] 15:06:00 Test Item Value Reference Range Interpretation Comments Blood Type Rh (test code = BT) O POSITIVE Antibody Screen (test code = ABSC) NEGATIVE Received Blood Or Been w/in Past 90 Days? YESSerum or plasma sodium measurement (moles/volume)2019-12-13 09:42:00 Test Item Value Reference Range Interpretation Comments Sodium Level (test code = 2951-2) 135 mmol/L 136-145 [facility])Serum or plasma potassium measurement (moles/volume)2019-12-13 09:42:00 Test Item Value Reference Range Interpretation Comments Potassium Level (test code = 3.8 mmol/L 3.5-5.1 2823-3) [facility])Serum or plasma chloride measurement (moles/volume)2019-12-13 09:42:00 Test Item Value Reference Range Interpretation Comments Chloride Level (test code = 101 mmol/L 98-107 5-0) [facility])Serum or plasma carbon dioxide, total measurement (moles/volume)2019-12-13 09:42:00 Test Item Value Reference Range Interpretation Comments Carbon Dioxide Level (test code = 23 mmol/L -2027-9) [facility])Serum or plasma anion [id number] 09:42:00 Test Item Value Reference Range Interpretation Comments Anion Gap (test code = 57362-1) 15 mmol/L 10-20 [facility])Serum or plasma urea nitrogen measurement (mass/volume)2019-12-13 09:42:00 Test Item Value Reference Range Interpretation Comments Blood Urea Nitrogen (test code = 11 mg/dL 7.0-18.7 3094-0) [facility])Serum or plasma creatinine measurement (mass/volume)2019-12-13 09:42:00 Test Item Value Reference Range Interpretation Comments Creatinine (test code = 2160-0) 0.85 mg/dL 0.6-1.1 [facility])Estimated glomerular filtration rate (GFR) by Modification of Diet in Renal Disease (2019-12-13 09:42:00 Test Item Value Reference Range Interpretation Comments Estimated GFR (MDRD) (test code = 71 07250-3) [facility])Glucose [Mass/volume] in Serum or Plasma 2019-12-13 09:42:00 Test Item Value Reference Range Interpretation Comments Glucose Level (test code = 2345-7) 135 mg/dL 70-105 [facility])Serum or plasma calcium measurement (mass/volume)2019-12-13 09:42:00 Test Item Value Reference Range Interpretation Comments Calcium Level (test code = 98164-2) 9.0 mg/dL 7.8-10.44 [facility])Serum or plasma total bilirubin measurement (mass/volume)2019-12-13 09:42:00 Test Item Value Reference Range Interpretation Comments Total Bilirubin (test code = 0.4 mg/dL 0.2-1.2 1974-2) [facility])Serum or plasma direct bilirubin measurement (mass/volume)2019-12-13 09:42:00 Test Item Value Reference Range Interpretation Comments Direct Bilirubin (test code = 0.2 mg/dL 0.1-0.3 1967-7) [facility]Serum or plasma protein measurement (mass/volume)2019-12-13 09:42:00 Test Item Value Reference Range Interpretation Comments Serum Total Protein (test code = 6.1 g/dL 6.0-8.3 2885-2) [facility])Serum or plasma albumin measurement by bromocresol green (BCG) dye binding method ([id number] 09:42:00 Test Item Value Reference Range Interpretation Comments Albumin (test code = 18487-2) 3.9 g/dL 3.5-5.0 [facility])Globulin [Mass/volume] in Serum by calculation 2019-12-13 09:42:00 Test Item Value Reference Range Interpretation Comments Globulin (test code = 24653-1) 2.2 g/dL 2.4-3.5 [facility])Albumin/Globulin [Mass Ratio] in Serum or [id number] 09:42:00 Test Item Value Reference Range Interpretation Comments Albumin/Globulin Ratio (test code = 1.8 g/dL 1.2-2.2 1759-0) [facility])Serum or plasma uric acid measurement (mass/volume)2019-12-13 09:42:00 Test Item Value Reference Range Interpretation Comments Uric Acid (test code = 3084-1) 5.4 mg/dL 2.6-6.0 [facility])Alkaline phosphatase [Enzymatic activity/volume] in Serum or [id number] 09:42:00 Test Item Value Reference Range Interpretation Comments Alkaline Phosphatase (test code = 297 U/L 40-110 6768-6) [facility])Serum or plasma aspartate aminotransferase measurement (enzymatic activity/volume)2019-12-13 09:42:00 Test Item Value Reference Range Interpretation Comments Aspartate Amino Transf (AST/SGOT) 19 U/L 5-34 (test code = 1920-8) [facility])Serum or plasma lactate dehydrogenase measurement (enzymatic activity/volume) by [id number] 09:42:00 Test Item Value Reference Range Interpretation Comments Lactate Dehydrogenase (test code = 152 U/L 125-220 78102-3) [facility])Serum or plasma alanine aminotransferase measurement without P-5'-P (enzymatic [id number] 09:42:00 Test Item Value Reference Range Interpretation Comments Alanine Aminotransferase (ALT/SGPT) 27 U/L 8-55 (test code = 1744-2) [facility])Serum or plasma phosphate measurement (mass/volume)2019-12-13 09:42:00 Test Item Value Reference Range Interpretation Comments Phosphorus Level (test code = 3.0 mg/dL 2.3-4.7 2777-1) [facility]Automated blood reticulocytes count (number/volume)2019-12-13 09:42:00 Test Item Value Reference Range Interpretation Comments Reticulocyte Count (test code = 0.2 % 0.5-1.5 78714-3) [facility])Leukocytes [#/volume] in Blood by Automated [id number] 23:59:00 Test Item Value Reference Range Interpretation Comments White Blood Count (test code = 4.8 thou/uL 4.8-10.8 6690-2) [facility]Blood erythrocytes automated count (number/volume)2019-11-16 23:59:00 Test Item Value Reference Range Interpretation Comments Red Blood Count (test code = 3.25 mill/uL 4.20-5.40 789-8) [facility]Blood hemoglobin measurement (mass/volume) 2019-11-16 23:59:00 Test Item Value Reference Range Interpretation Comments Hemoglobin (test code = 718-7) 8.9 g/dL 12.0-16.0 [facility])Automated erythrocyte mean corpuscular volume 2019-11-16 23:59:00 Test Item Value Reference Range Interpretation Comments Mean Corpuscular Volume (test code = 82.9 fL 78.0-98.0 787-2) [facility]Automated erythrocyte mean corpuscular hemoglobin (mass per erythrocyte)2019-11-16 23:59:00 Test Item Value Reference Range Interpretation Comments Mean Corpuscular Hemoglobin (test 27.4 pg 27.0-31.0 code = 785-6) [facility]Automated erythrocyte mean corpuscular hemoglobin concentration measurement (mass/[id number] 23:59:00 Test Item Value Reference Range Interpretation Comments Mean Corpuscular Hemoglobin Concent 33.0 g/dL 32.0-36.0 (test code = 786-4) [facility])Automated erythrocyte distribution width ratio 2019-11-16 23:59:00 Test Item Value Reference Range Interpretation Comments Red Cell Distribution Width (test code 14.6 % 11.5-14.5 = 788-0) [facility])Automated blood platelet count (count/volume) 2019-11-16 23:59:00 Test Item Value Reference Range Interpretation Comments Platelet Count (test code = 366 thou/uL 130-400 777-3) [facility])Automated blood platelet mean [id number] 23:59:00 Test Item Value Reference Range Interpretation Comments Mean Platelet Volume (test code = 7.5 fL 7.4-10.4 81825-9) [facility])Automated blood neutrophils/100 leukocytes 2019-11-16 23:59:00 Test Item Value Reference Range Interpretation Comments Neutrophils % (test code = 770-8) 66.3 % 42.0-75.0 [facility])Lymphocytes/100 leukocytes in Blood by Automated [id number] 23:59:00 Test Item Value Reference Range Interpretation Comments Lymphocytes % (test code = 736-9) 6.9 % 21.0-51.0 [facility])Automated blood monocytes/100 leukocytes 2019-11-16 23:59:00 Test Item Value Reference Range Interpretation Comments Monocytes % (test code = 5905-5) 13.8 % 0.0-10.0 [facility])Automated blood eosinophils/100 leukocytes 2019-11-16 23:59:00 Test Item Value Reference Range Interpretation Comments Eosinophils % (test code = 713-8) 11.9 % 0.0-10.0 [facility])Automated blood basophils/100 leukocytes 2019-11-16 23:59:00 Test Item Value Reference Range Interpretation Comments Basophils % (test code = 706-2) 1.1 % 0.0-1.0 [facility])Blood neutrophils automated count (number/volume)2019-11-16 23:59:00 Test Item Value Reference Range Interpretation Comments Neutrophils # (test code = 751-8) 3.2 thou/uL 1.40-6.50 [facility])Lymphocytes [#/volume] in Blood by Automated [id number] 23:59:00 Test Item Value Reference Range Interpretation Comments Lymphocytes # (test code = 731-0) 0.3 thou/uL 1.20-3.40 [facility])Blood monocytes automated count (number/volume)2019-11-16 23:59:00 Test Item Value Reference Range Interpretation Comments Monocytes # (test code = 742-7) 0.7 thou/uL 0.11-0.59 [facility])Blood eosinophils automated count (count/volume)2019-11-16 23:59:00 Test Item Value Reference Range Interpretation Comments Eosinophils # (test code = 711-2) 0.6 thou/uL 0.0-0.7 [facility])Automated blood basophil count (count/volume) 2019-11-16 23:59:00 Test Item Value Reference Range Interpretation Comments Basophils # (test code = 704-7) 0.1 thou/uL 0.0-0.2 [facility]Njfgclwqbu1281-90-62 17:18:00 Test Item Value Reference Range Interpretation Comments Hematology (test code = WBCT) 4.8 thou/uL 4.8-10.8 N Hematology (test code = RBCT) 3.25 mill/uL 4.20-5.40 L Hematology (test code = HGBT) 8.9 g/dL 12.0-16.0 L Hematology (test code = HCTT) 26.9 % 36.0-47.0 L Hematology (test code = MCV) 82.9 fL 78.0-98.0 N Hematology (test code = MCH) 27.4 pg 27.0-31.0 N Hematology (test code = MCHC) 33.0 g/dL 32.0-36.0 N Hematology (test code = RDW) 14.6 % 11.5-14.5 H Hematology (test code = PLTT) 366 thou/uL 130-400 N Hematology (test code = MPV) 7.5 fL 7.4-10.4 N Hematology (test code = %NEUT) 66.3 % 42.0-75.0 N Hematology (test code = %LYMPH) 6.9 % 21.0-51.0 L Hematology (test code = %MONO) 13.8 % 0.0-10.0 H Hematology (test code = %EOS) 11.9 % 0.0-10.0 H Hematology (test code = %BASO) 1.1 % 0.0-1.0 H Hematology (test code = NEUT#) 3.2 thou/uL 1.40-6.50 N Hematology (test code = LYMPH#) 0.3 thou/uL 1.20-3.40 L Hematology (test code = MONO#) 0.7 thou/uL 0.11-0.59 H Hematology (test code = EOS#) 0.6 thou/uL 0.0-0.7 N Hematology (test code = BASO#) 0.1 thou/uL 0.0-0.2 N Packed Cells - [id number] 17:06:[id number] [facility] TFUSE 11/16/19 1443 [id number] [facility] TFUSE 11/16/19 1221Type [id number] 17:06:00 Test Item Value Reference Range Interpretation Comments Blood Type Rh (test code = BT) O POSITIVE Antibody Screen (test code = ABSC) NEGATIVE Received Blood Or Been w/in Past 90 Days? NORetype Verify-Blood Type Rh 2019-11-16 11:57:00 Test Item Value Reference Range Interpretation Comments Blood Type Rh (test code = BT) O POSITIVE Serum or plasma sodium measurement (moles/volume)2019-11-16 09:19:00 Test Item Value Reference Range Interpretation Comments Sodium Level (test code = 2951-2) 136 mmol/L 136-145 [facility]Serum or plasma potassium measurement (moles/volume)2019-11-16 09:19:00 Test Item Value Reference Range Interpretation Comments Potassium Level (test code = 4.2 mmol/L 3.5-5.1 2823-3) [facility]Serum or plasma chloride measurement (moles/volume)2019-11-16 09:19:00 Test Item Value Reference Range Interpretation Comments Chloride Level (test code = 101 mmol/L 98-107 2075-0) [facility])Serum or plasma carbon dioxide, total measurement (moles/volume)2019-11-16 09:19:00 Test Item Value Reference Range Interpretation Comments Carbon Dioxide Level (test code = 23 mmol/L 22-29 8-9) [facility])Serum or plasma anion [id number] 09:19:00 Test Item Value Reference Range Interpretation Comments Anion Gap (test code = 79364-9) 16 mmol/L 10-20 [facility])Serum or plasma urea nitrogen measurement (mass/volume)2019-11-16 09:19:00 Test Item Value Reference Range Interpretation Comments Blood Urea Nitrogen (test code = 13 mg/dL 7.0-18.7 3094-0) [facility])Serum or plasma creatinine measurement (mass/volume)2019-11-16 09:19:00 Test Item Value Reference Range Interpretation Comments Creatinine (test code = 2160-0) 0.97 mg/dL 0.6-1.1 [facility])Estimated glomerular filtration rate (GFR) by Modification of Diet in Renal Disease (2019-11-16 09:19:00 Test Item Value Reference Range Interpretation Comments Estimated GFR (MDRD) (test code = 61 68591-4) [facility])Glucose [Mass/volume] in Serum or Plasma 2019-11-16 09:19:00 Test Item Value Reference Range Interpretation Comments Glucose Level (test code = 2345-7) 138 mg/dL 70-105 [facility])Serum or plasma calcium measurement (mass/volume)2019-11-16 09:19:00 Test Item Value Reference Range Interpretation Comments Calcium Level (test code = 76464-6) 9.8 mg/dL 7.8-10.44 [facility])Serum or plasma total bilirubin measurement (mass/volume)2019-11-16 09:19:00 Test Item Value Reference Range Interpretation Comments Total Bilirubin (test code = 0.4 mg/dL 0.2-1.2 1975-2) [facility])Serum or plasma direct bilirubin measurement (mass/volume)2019-11-16 09:19:00 Test Item Value Reference Range Interpretation Comments Direct Bilirubin (test code = 0.2 mg/dL 0.1-0.3 1968-7) [facility])Serum or plasma protein measurement (mass/volume)2019-11-16 09:19:00 Test Item Value Reference Range Interpretation Comments Serum Total Protein (test code = 7.2 g/dL 6.0-8.3 2885-2) [facility])Serum or plasma albumin measurement by bromocresol green (BCG) dye binding method ([id number] 09:19:00 Test Item Value Reference Range Interpretation Comments Albumin (test code = 28082-8) 4.5 g/dL 3.5-5.0 [facility])Globulin [Mass/volume] in Serum by calculation 2019-11-16 09:19:00 Test Item Value Reference Range Interpretation Comments Globulin (test code = 93518-8) 2.7 g/dL 2.4-3.5 [facility])Albumin/Globulin [Mass Ratio] in Serum or Fgryst5628-76-19 09:19:00 Test Item Value Reference Range Interpretation Comments Albumin/Globulin Ratio (test code = 1.7 g/dL 1.2-2.2 1759-0) [facility])Serum or plasma uric acid measurement (mass/volume)2019-11-16 09:19:00 Test Item Value Reference Range Interpretation Comments Uric Acid (test code = 3084-1) 5.3 mg/dL 2.6-6.0 [facility])Alkaline phosphatase [Enzymatic activity/volume] in Serum or Qalzpv3223-71-01 09:19:00 Test Item Value Reference Range Interpretation Comments Alkaline Phosphatase (test code = 232 U/L 40-110 6768-6) [facility])Serum or plasma aspartate aminotransferase measurement (enzymatic activity/volume)2019-11-16 09:19:00 Test Item Value Reference Range Interpretation Comments Aspartate Amino Transf (AST/SGOT) 12 U/L 5-34 (test code = 1920-8) [facility])Serum or plasma lactate dehydrogenase measurement (enzymatic activity/volume) by [id number] 09:19:00 Test Item Value Reference Range Interpretation Comments Lactate Dehydrogenase (test code = 149 U/L 125-220 35230-3) [facility])Serum or plasma alanine aminotransferase measurement without P-5'-P (enzymatic [id number] 09:19:00 Test Item Value Reference Range Interpretation Comments Alanine Aminotransferase (ALT/SGPT) 15 U/L 8-55 (test code = 1744-2) [facility])Serum or plasma phosphate measurement (mass/volume)2019-11-16 09:19:00 Test Item Value Reference Range Interpretation Comments Phosphorus Level (test code = 3.3 mg/dL 2.3-4.7 2777-1) [facility])Automated blood reticulocytes count (number/volume)2019-11-16 09:19:00 Test Item Value Reference Range Interpretation Comments Reticulocyte Count (test code = 0.2 % 0.5-1.5 14359-5) [facility])Serum or plasma sodium measurement (moles/volume)2019-11-16 09:19:00 Test Item Value Reference Range Interpretation Comments Sodium Level (test code = 2951-2) 136 mmol/L 136-145 [facility])Serum or plasma potassium measurement (moles/volume)2019-11-16 09:19:00 Test Item Value Reference Range Interpretation Comments Potassium Level (test code = 4.2 mmol/L 3.5-5.1 2823-3) [facility])Serum or plasma chloride measurement (moles/volume)2019-11-16 09:19:00 Test Item Value Reference Range Interpretation Comments Chloride Level (test code = 101 mmol/L 98-107 2075-0) [facility])Serum or plasma carbon dioxide, total measurement (moles/volume)2019-11-16 09:19:00 Test Item Value Reference Range Interpretation Comments Carbon Dioxide Level (test code = 23 mmol/L 2027-12) [facility])Serum or plasma anion [id number] 09:19:00 Test Item Value Reference Range Interpretation Comments Anion Gap (test code = 59464-7) 16 mmol/L 10-20 [facility])Serum or plasma urea nitrogen measurement (mass/volume)2019-11-16 09:19:00 Test Item Value Reference Range Interpretation Comments Blood Urea Nitrogen (test code = 13 mg/dL 7.0-18.7 3094-0) [facility])Serum or plasma creatinine measurement (mass/volume)2019-11-16 09:19:00 Test Item Value Reference Range Interpretation Comments Creatinine (test code = 2160-0) 0.97 mg/dL 0.6-1.1 [facility])Estimated glomerular filtration rate (GFR) by Modification of Diet in Renal Disease (2019-11-16 09:19:00 Test Item Value Reference Range Interpretation Comments Estimated GFR (MDRD) (test code = 61 36593-2) [facility])Glucose [Mass/volume] in Serum or Plasma 2019-11-16 09:19:00 Test Item Value Reference Range Interpretation Comments Glucose Level (test code = 2345-7) 138 mg/dL 70-105 [facility])Serum or plasma calcium measurement (mass/volume)2019-11-16 09:19:00 Test Item Value Reference Range Interpretation Comments Calcium Level (test code = 79611-6) 9.8 mg/dL 7.8-10.44 [facility])Serum or plasma total bilirubin measurement (mass/volume)2019-11-16 09:19:00 Test Item Value Reference Range Interpretation Comments Total Bilirubin (test code = 0.4 mg/dL 0.2-1.2 1975-2) [facility])Serum or plasma direct bilirubin measurement (mass/volume)2019-11-16 09:19:00 Test Item Value Reference Range Interpretation Comments Direct Bilirubin (test code = 0.2 mg/dL 0.1-0.3 1968-7) [facility])Serum or plasma protein measurement (mass/volume)2019-11-16 09:19:00 Test Item Value Reference Range Interpretation Comments Serum Total Protein (test code = 7.2 g/dL 6.0-8.3 2885-2) [facility])Serum or plasma albumin measurement by bromocresol green (BCG) dye binding method ([id number] 09:19:00 Test Item Value Reference Range Interpretation Comments Albumin (test code = 42823-7) 4.5 g/dL 3.5-5.0 [facility])Globulin [Mass/volume] in Serum by calculation 2019-11-16 09:19:00 Test Item Value Reference Range Interpretation Comments Globulin (test code = 85880-3) 2.7 g/dL 2.4-3.5 [facility])Albumin/Globulin [Mass Ratio] in Serum or [id number] 09:19:00 Test Item Value Reference Range Interpretation Comments Albumin/Globulin Ratio (test code = 1.7 g/dL 1.2-2.2 1759-0) [facility])Serum or plasma uric acid measurement (mass/volume)2019-11-16 09:19:00 Test Item Value Reference Range Interpretation Comments Uric Acid (test code = 3084-1) 5.3 mg/dL 2.6-6.0 [facility])Alkaline phosphatase [Enzymatic activity/volume] in Serum or Ruquzw1115-94-34 09:19:00 Test Item Value Reference Range Interpretation Comments Alkaline Phosphatase (test code = 232 U/L 40-110 6768-6) [facility])Serum or plasma aspartate aminotransferase measurement (enzymatic activity/volume)2019-11-16 09:19:00 Test Item Value Reference Range Interpretation Comments Aspartate Amino Transf (AST/SGOT) 12 U/L 5-34 (test code = 1920-8) [facility])Serum or plasma lactate dehydrogenase measurement (enzymatic activity/volume) by tnkn5096-66-06 09:19:00 Test Item Value Reference Range Interpretation Comments Lactate Dehydrogenase (test code = 149 U/L 125-220 64344-9) [facility])Serum or plasma alanine aminotransferase measurement without P-5'-P (enzymatic ljrtnm5684-09-79 09:19:00 Test Item Value Reference Range Interpretation Comments Alanine Aminotransferase (ALT/SGPT) 15 U/L 8-55 (test code = 1744-2) [facility])Serum or plasma phosphate measurement (mass/volume)2019-11-16 09:19:00 Test Item Value Reference Range Interpretation Comments Phosphorus Level (test code = 3.3 mg/dL 2.3-4.7 2777-1) [facility])Automated blood reticulocytes count (number/volume)2019-11-16 09:19:00 Test Item Value Reference Range Interpretation Comments Reticulocyte Count (test code = 0.2 % 0.5-1.5 55559-3) [facility])Qlncjiykwh5840-43-02 16:25:00 Test Item Value Reference Range Interpretation Comments Hematology (test code = WBCT) 6.8 thou/uL 4.8-10.8 N Hematology (test code = RBCT) 3.18 mill/uL 4.20-5.40 L Hematology (test code = HGBT) 8.5 g/dL 12.0-16.0 L Hematology (test code = HCTT) 26.9 % 36.0-47.0 L Hematology (test code = MCV) 84.5 fL 78.0-98.0 N Hematology (test code = MCH) 26.8 pg 27.0-31.0 L Hematology (test code = MCHC) 31.7 g/dL 32.0-36.0 L Hematology (test code = RDW) 13.7 % 11.5-14.5 N Hematology (test code = PLTT) 450 thou/uL 130-400 H Hematology (test code = MPV) 7.7 fL 7.4-10.4 N Hematology (test code = %NEUT) 71.3 % 42.0-75.0 N Hematology (test code = %LYMPH) 18.2 % 21.0-51.0 L Hematology (test code = %MONO) 9.0 % 0.0-10.0 N Hematology (test code = %EOS) 1.2 % 0.0-10.0 N Hematology (test code = %BASO) 0.3 % 0.0-1.0 N Hematology (test code = NEUT#) 4.9 thou/uL 1.40-6.50 N Hematology (test code = LYMPH#) 1.2 thou/uL 1.20-3.40 N Hematology (test code = MONO#) 0.6 thou/uL 0.11-0.59 H Hematology (test code = EOS#) 0.1 thou/uL 0.0-0.7 N Hematology (test code = BASO#) 0.0 thou/uL 0.0-0.2 N Leukocytes [#/volume] in Blood by Automated [id number] 14:05:00 Test Item Value Reference Range Interpretation Comments White Blood Count (test code = 6.8 thou/uL 4.8-10.8 6690-2) [facility])Blood erythrocytes automated count (number/volume)2019-10-22 14:05:00 Test Item Value Reference Range Interpretation Comments Red Blood Count (test code = 3.18 mill/uL 4.20-5.40 789-8) [facility])Blood hemoglobin measurement (mass/volume) 2019-10-22 14:05:00 Test Item Value Reference Range Interpretation Comments Hemoglobin (test code = 718-7) 8.5 g/dL 12.0-16.0 [facility])Automated erythrocyte mean corpuscular volume 2019-10-22 14:05:00 Test Item Value Reference Range Interpretation Comments Mean Corpuscular Volume (test code = 84.5 fL 78.0-98.0 787-2) [facility])Automated erythrocyte mean corpuscular hemoglobin (mass per erythrocyte)2019-10-22 14:05:00 Test Item Value Reference Range Interpretation Comments Mean Corpuscular Hemoglobin (test 26.8 pg 27.0-31.0 code = 785-6) [facility])Automated erythrocyte mean corpuscular hemoglobin concentration measurement (mass/clp9147-91-94 14:05:00 Test Item Value Reference Range Interpretation Comments Mean Corpuscular Hemoglobin Concent 31.7 g/dL 32.0-36.0 (test code = 786-4) [facility])Automated erythrocyte distribution width ratio 2019-10-22 14:05:00 Test Item Value Reference Range Interpretation Comments Red Cell Distribution Width (test code 13.7 % 11.5-14.5 = 788-0) [facility])Automated blood platelet count (count/volume) 2019-10-22 14:05:00 Test Item Value Reference Range Interpretation Comments Platelet Count (test code = 450 thou/uL 130-400 777-3) [facility])Automated blood platelet mean thtybu9520-13-77 14:05:00 Test Item Value Reference Range Interpretation Comments Mean Platelet Volume (test code = 7.7 fL 7.4-10.4 19140-3) [facility])Automated blood neutrophils/100 leukocytes 2019-10-22 14:05:00 Test Item Value Reference Range Interpretation Comments Neutrophils % (test code = 770-8) 71.3 % 42.0-75.0 [facility])Lymphocytes/100 leukocytes in Blood by Automated [id number] 14:05:00 Test Item Value Reference Range Interpretation Comments Lymphocytes % (test code = 736-9) 18.2 % 21.0-51.0 [facility])Automated blood monocytes/100 leukocytes 2019-10-22 14:05:00 Test Item Value Reference Range Interpretation Comments Monocytes % (test code = 5905-5) 9.0 % 0.0-10.0 [facility])Automated blood eosinophils/100 leukocytes 2019-10-22 14:05:00 Test Item Value Reference Range Interpretation Comments Eosinophils % (test code = 713-8) 1.2 % 0.0-10.0 [facility])Automated blood basophils/100 leukocytes 2019-10-22 14:05:00 Test Item Value Reference Range Interpretation Comments Basophils % (test code = 706-2) 0.3 % 0.0-1.0 [facility])Blood neutrophils automated count (number/volume)2019-10-22 14:05:00 Test Item Value Reference Range Interpretation Comments Neutrophils # (test code = 751-8) 4.9 thou/uL 1.40-6.50 [facility])Lymphocytes [#/volume] in Blood by Automated jponl4042-50-77 14:05:00 Test Item Value Reference Range Interpretation Comments Lymphocytes # (test code = 731-0) 1.2 thou/uL 1.20-3.40 [facility])Blood monocytes automated count (number/volume)2019-10-22 14:05:00 Test Item Value Reference Range Interpretation Comments Monocytes # (test code = 742-7) 0.6 thou/uL 0.11-0.59 [facility])Blood eosinophils automated count (count/volume)2019-10-22 14:05:00 Test Item Value Reference Range Interpretation Comments Eosinophils # (test code = 711-2) 0.1 thou/uL 0.0-0.7 [facility])Automated blood basophil count (count/volume) 2019-10-22 14:05:00 Test Item Value Reference Range Interpretation Comments Basophils # (test code = 704-7) 0.0 thou/uL 0.0-0.2 [facility])[id number] SURGICAL PATHOLOGY, LEVEL [id number] 11:41:[address] [address] Laboratory Printed: 09/28/19 1149 [facility] DAEMPathology Page: 1 Patient: NATALIE COSTA Birthdate: 1970 Age/Sex: 48/F Spec#: [id number]: Srikanth Mesa MD Specimen Date: 09/25/19 Received Date: 09/25/19 Specimen: TISSUE PATHOLOGIC DIAGNOSIS Soft tissue, right acetabulum, CT-guided corebiopsy: - Poorly differentiated metastatic carcinoma. Comment: The biopsy shows poorly differentiated tumor nests with surrounding fibrosis. Nobone fragments or inflammation identified. Immunohistochemical stains have been performedwith appropriate controls on block A2 at [facility] and interpreted by Dr. Núñez, which showthat the tumor nests are diffusely positive for AE1/3 and negative for VENTURA-3,CDX2, PAX8,TTF1. Slides cut from paraffin-embedded tissue (A2) were sent to [facility].Special studies were performed as follows and the image analysis interpretation wasperformed by Dr. Kelechi Núñez. Estrogen Receptor -- NEGATIVE, 0%Average Intensity -- 0 Progesterone Receptor -- NEGATIVE, 0%Average Intensity -- 0 Ki-67 -- HIGH, 73.8% HER-2/gilbert -- NEGATIVE, 1+ This case was reviewed in intradepartmental consultation. Examination of permanent sectionsconfirms the touch prep diagnosis. Pathologist:Kelechi Núñez MD Entered by:09/28/19 1140 [facility] PROCEDURES: 76144, 78402, 43842, 41437/3, 90607, 93823/4 Patient: NATALIE COSTA Re09/25/19Loc: CT MR#: [id number] CONTINUED ON NEXT PAGE Dis: Sta: JUNI SDC [address] [address] Laboratory Printed: 09/28/[address] [facility] Page: 2 Patient: NATALIE COSTA [id number] (Continued) GROSS DESCRIPTION A. SOFT TISSUE MASS RIGHT ACETABULUM Dr. Núñez attended the CT suite for adequacy evaluation on a right acetabulum lesion. Thespecimen is received in the fresh state. Touch preps are prepared for adequacy evaluation. TOUCH PREP DIAGNOSES:Evaluation #1-- Blood cells and adipose tissue, and the specimen is placed in container A1.Evaluation #2 -- Atypical cells present, and the specimen obtained is placed in containerA1.Evaluation #3 -- Atypical cellspresent, and the specimen is placed in container A2.Evaluation #4 -- Atypical cells present, and thespecimen obtained is placed in containerA2.Touch prep diagnoses reported by Dr. Núñez. The specimen received in container A1 consists of two cores of hopson soft tissue. Each onemeasures 0.6 cm in length and less than 0.1 cm in diameter. The entire specimen issubmitted in one cassette A1. The specimen placed in the second container consists of one core and two specks of softtissue. The core measures 1.7 cm in length and less than 0.1 cm in diameter. The eachspeck of tissue measure 0.05 cm in greatest dimensions and are both are also submitted incassette A2. Dictated by: DAMEON ZACARIAS Entered by: 09/25/19 - 1405 [facility] MICROSCOPIC DESCRIPTION A microscopic examination was performed to arrive at the diagnostic conclusion reported. CPT Modifier: 59 Patient: NATALIE COSTA Re09/25/19Loc: CT MR#: [id number] CONTINUED ON NEXT PAGE Dis: Sta: [facility] SDC [address] [address] Laboratory Fax: Printed: 09/28/[address] [place] [address] DAEMPathology Page: 3 Patient: NATALIE COSTA [id number] (Continued) Signed (Electronically Signed) Kelechi Núñez MD 09/28/19 Patient: NATALIE COSTA Re09/25/19Loc: CT MR#: [id number] ENDOF REPORT Dis: Sta: DEP [id number] SURGICAL PATHOLOGY, LEVEL [id number] 09:52:[address] [address] Laboratory Printed: 09/28/[address] [facility] DAEMPathology Page: 1 Patient: NATALIE COSTA Birthdate: 1970 Age/Sex: 43/F Spec#: [id number]: Wagner Saravia MD Specimen Date: 12/03/14 Received Date: 12/03/14 Specimen: BREAST BIOPSY ADDENDUM Addendum # 2 Entered: 09/28/19 At the request of Dr. Joanna Sainz, the paraffin block was sent to [facility] for specialtesting with results as follows: PD-L1 SP142 FDA ([employer]) FOR TNBC (BREAST): IC >/= 1% EXPRESSION BASED ON CRITERIA FOR TNBC. % Immune Cells Stained: 5% IC Intensity: 2+ MISMATCH REPAIR (MMR) IHC PANEL TheIHC stains are performed on the paraffin block at [facility] (technical component) andinterpreted by Francisco Beatty M.D. via image analysis (professional component: 20041 X4). MLH1: NO LOSS OF EXPRESSION; Tumor stained: 99%; Intensity: 3+MSH2: NO LOSS OF EXPRESSION; Tumor stained: 100%; Intensity: 3+MSH6: NO LOSS OF EXPRESSION; Tumor stained: 99%; Intensity: 3+PMS2: NO LOSS OF EXPRESSION; Tumor stained: 98%; Intensity: 3+ Interpretation: MLH1, MSH2, MSH6 and PMS2 are all expressed by immunohistochem istry. Thereis no evidence of mismatch repair deficiency in this specimen. PIK3CA MUTATION CDX - TISSUE: NEGATIVEInterpretation: PCR analysis does NOT detected a mutation in targeted regions of exons 7,9, and 20 of the PIK3CA gene. The absence of a PIK3CA mutation predicts a decreasedlikelihood of response to the PIK3CA inhibitor PIQRAY (alpelisib). Patient: NATALIE COSTA Re12/03/14Loc: [facility]LT MR#: [id number] CONTINUED ON NEXT PAGE Dis: Sta: REG SDC [facility] [address] [address] Laboratory Printed: 09/28/[address] [facility] DAEMPathology Page: 2 Patient: NATALIE COSTA [id number] (Continued) ADDENDUM (Continued) NTRK NGS FUSION PROFILE: There is no evidence of expression of fusion RNA or mutationinvolving NTRK1, NTRK2, andNTRK3 genes by next generation sequencing. The reports from [facility] have been scanned into the patient's EMR and faxed to .Pathologist:Hiral Galdamez MD Entered by: 09/28/19818 LAB.DLN Addendum Signed (Electronically Signed)_ Hiral Galdamez MD 09/28/19 Addendum # 1 Entered: 12/06/14 The paraffin block was sent to [facility]. Special studies wereperformed as follows and the image analysis interpretation was performed by Francisco Beatty M.D. Estrogen Receptor -- NEGATIVE, 0% Progesterone Receptor -- NEGATIVE, 0% Ki-67 --HIGH, 68.8% HER-2/gilbert -- NEGATIVE, 0 The complete report has been scanned into t he patient's EMR. ADDITIONAL CPT CODES: 78531/4 (professional component) Pathologist:Francisco Beatty MD Entered by: 12/06/141606 LAB.DLN Patient: NATALIE COSTA Re12/03/14Loc: [facility] MR#: [id number] CONTINUED ON NEXT PAGE Dis: Sta: [facility] [address] [address] Laboratory Fax: Printed: 09/28/[address] [facility] DAEMPathology Page: 3 Patient: NATALIE COSTA [id number] (Continued) ADDENDUM (Continued) Addendum Signed (Electronically Signed)_ Francisco Beatty MD 12/06/14 PATHOLOGIC DIAGNOSIS Breast, right, upper outer quadrant, 11 o'clock mass, ultrasound guided biopsy: INVASIVE DUCTAL CARCINOMA, GRADE 3. Tumor involves 4 of 4 needle core fragments. COMMENT: Paraffin block sent for hormone receptors. Addendum report to follow. ACOS-Mandated Synoptic Data Elements Specimen: Breast.Procedure: Biopsy.Histologic Type: Invasive ductal carcinoma.Size of Tumor: Longest contiguous length of tumor in a core -- 1.5 cm (all cores involved).Location of Tumor (Quadrant): Right upper outer.Total Smooth Grade/Score: Grade 3 (of 3)/8 Points (of 9) Tubule Formation -- 3/3 points Nuclear Pleomorphism -- 3/3 points Mitotic Count -- 2/3 pointsModified Black's Nuclear Grade: 3 of 3.Carcinoma In Situ: Absent.Lymph-Vascular Invasion: Absent.Microcalcifications: Absent.Uninvolved Breast Tissue Evaluation: Not applicable. Pathologist:Hiral Galdamez MD Entered by:12/05/14 - 0840 [place] Patient: JULISSANATALIE Re12/03/14Loc: [place] MR#: [id number] CONTINUED ON NEXT PAGE Dis: Sta: LUIS SDC [address] [address] Laboratory Printed: 09/28/[address] [facility]: 4 Patient: NATALIE COSTA [id number] (Continued) PROCEDURES: 29413, 09289, 66186, 08806/4, 75832/4 GROSS DESCRIPTION A. BREAST BIOPSY RIGHT BREAST 11 O'CLOCK The specimen is received in 10% formalin, and islabeled with the patient's name and "rightbreast 11 o'clock biopsy." Specimen consists of multiple fragments/cores of yellow-hopson softtissue ranging 0.5 to 1.5 cm in length and each one measures less than 0.1 cm in diameter.Entire specimen is submitted in one cassette. This specimen is received along with a diagram which reveals that this biopsy is from 11o'clock position of right breast (upper outer quadrant). Date/Time of collection: 12/03/14 at 1050Date/Time specimen placed in formalin: 12/03/14 at 1 050Date/Time out of formalin: 12/03/14 at 2030 Dictated by: DAMEON ZACARIAS Entered by: 12/04/14 - 0212LAB. MICROSCOPIC DESCRIPTION Immunostains performed at [facility] with adequate controls show the following results on tumorcells: Pankeratin -- Positive on tumor cells, supporting a carcinoma origin.High molecular weight cytokeratin -- Focally positive, equivocal result with a stronglypositive E-cadherin.E-cadherin -- Strongly positive, supporting a ductal origin.p53 and SM-MHC -- Negative for myoepithelial cells, supporting invasive carcinoma.Ki-67 -- High proliferation rate, 55%, supports mitotic count score for the [employer]. The above results support the diagnosis of high grade invasive ductal carcinoma. Signed (Electronically Signed) Hiral Galdamez MD 12/05/14 - Patient: NATALIE COSTA Re12/03/14Loc: T MR#: [id number] END OF REPORT Dis: Sta: REG [id number] 09:24:00 Test Item Value Reference Range Interpretation Comments Coagulation (test 13.0 sec 12.0-14.7 N code = PT-T) Coagulation (test 1.0 ATTE NTION: READ code = INR) CAREFULLY-- The recommended the rapeutic ranges for oral anticoagulanttr eatments are: ------ Low Inte nsity: 1.5 - 2.0 Moderate In tensity: 2.0 - 3.0 High Intens ity (1): 2.5 - 3.5 High Intens ity (2): 3.0 - 4.0 CRITICAL: > 4.0 Coagulation (test 34.5 sec 22.9-36.1 N code = PTT) Prothrombin time (PT) in platelet poor plasma by coagulation [id number] 09:06:00 Test Item Value Reference Range Interpretation Comments Prothrombin Time (test code = 13.0 sec 12.0-14.7 5902-2) [facility])INR in Platelet poor plasma by Coagulation [id number] 09:06:00 Test Item Value Reference Range Interpretation Comments INR International Normalized Ratio 1.0 (test code = 6301-6) [facility])Activated partial thromboplastin time (aPTT) in platelet poor plasma by coagulation [id number] 09:06:00 Test Item Value Reference Range Interpretation Comments Activated Partial Thromboplast Time 34.5 sec 22.9-36.1 (test code = 79644-0) [facility])Culture, [id number] 14:36:00 Test Item Value Reference Range Interpretation Comments Culture, Blood (test code = BC) NG5 [id number] 05:35:00 Test Item Value Reference Range Interpretation Comments Hematology (test code = 7.5 thou/uL 4.8-10.8 N WBCT) Hematology (test code = 3.66 mill/uL 4.20-5.40 L RBCT) Hematology (test code = 10.0 g/dL 12.0-16.0 L HGBT) Hematology (test code = 32.4 % 36.0-47.0 L HCTT) Hematology (test code = MCV) 88.6 fL 78.0-98.0 N Hematology (test code = MCH) 27.3 pg 27.0-31.0 N Hematology (test code = 30.9 g/dL 32.0-36.0 L MCHC) Hematology (test code = RDW) 12.1 % 11.5-14.5 N Hematology (test code = 319 thou/uL 130-400 N PLTT) Hematology (test code = MPV) 6.9 fL 7.4-10.4 L Hematology (test code = NE) 57 % 42-75 N Hematology (test code = BA) 7 % 5-11 N Hematology (test code = LY) 22 % 21-51 N Hematology (test code = MO) 10 % 0-10 N Hematology (test code = EO) 2 % 0-10 N Hematology (test code = BAS) 1 % 0-2 N Hematology (test code = ME) 1 % 0-0 H Hematology (test code = Appears Adequate PCOMMENT) [id number] 05:34:00 Test Item Value Reference Range Interpretation Comments Chemistry (test code 138 mmol/L 136-145 N = NA-T) Chemistry (test code 4.4 mmol/L 3.5-5.1 N = K-T) Chemistry (test code 100 mmol/L 98-107 N = CL) Chemistry (test code 29 mmol/L 22-29 N = CO2) Chemistry (test code 13 mmol/L 10-20 N = ANGP) Chemistry (test code 13 mg/dL 7.0-18.7 N = BUN) Chemistry (test code 0.87 mg/dL 0.6-1.1 N = CREATT) Chemistry (test code 69 Referen ce Range for = EGFRMDRD) Estimated GFR: Greater than 90 mL/min/ 1.73 m2NOTE:The MDRD equation has no t been validated for u se with theelderly (ove r 70 years of age), women, patients with serious comorbi d condition or pe rsons with extremes o fbody size, muscle ma ss, or nutritional sta tus. Chemistry (test code 94 mg/dL 70-105 N = GLU-T) Chemistry (test code 9.4 mg/dL 7.8-10.44 N = CA) Serum or plasma sodium measurement (moles/volume)2019-09-11 05:00:00 Test Item Value Reference Range Interpretation Comments Sodium Level (test code = 2951-2) 138 mmol/L 136-145 [facility])Serum or plasma potassium measurement (moles/volume)2019-09-11 05:00:00 Test Item Value Reference Range Interpretation Comments Potassium Level (test code = 4.4 mmol/L 3.5-5.1 2823-3) [facility])Serum or plasma chloride measurement (moles/volume)2019-09-11 05:00:00 Test Item Value Reference Range Interpretation Comments Chloride Level (test code = 100 mmol/L 98-107 2075-0) [facility])Serum or plasma carbon dioxide, total measurement (moles/volume)2019-09-11 05:00:00 Test Item Value Reference Range Interpretation Comments Carbon Dioxide Level (test code = 29 mmol/L 22-29 2027-9) [facility])Serum or plasma anion [id number] 05:00:00 Test Item Value Reference Range Interpretation Comments Anion Gap (test code = 88298-2) 13 mmol/L 10-20 [facility])Serum or plasma urea nitrogen measurement (mass/volume)2019-09-11 05:00:00 Test Item Value Reference Range Interpretation Comments Blood Urea Nitrogen (test code = 13 mg/dL 7.0-18.7 3094-0) [facility])Serum or plasma creatinine measurement (mass/volume)2019-09-11 05:00:00 Test Item Value Reference Range Interpretation Comments Creatinine (test code = 2160-0) 0.87 mg/dL 0.6-1.1 [facility])Estimated glomerular filtration rate (GFR) by Modification of Diet in Renal Disease (2019-09-11 05:00:00 Test Item Value Reference Range Interpretation Comments Estimated GFR (MDRD) (test code = 69 69959-0) [facility]Glucose [Mass/volume] in Serum or Plasma 2019-09-11 05:00:00 Test Item Value Reference Range Interpretation Comments Glucose Level (test code = 2345-7) 94 mg/dL 70-105 [facility])Serum or plasma calcium measurement (mass/volume)2019-09-11 05:00:00 Test Item Value Reference Range Interpretation Comments Calcium Level (test code = 82358-8) 9.4 mg/dL 7.8-10.44 [facility])Serum or plasma sodium measurement (moles/volume)2019-09-11 05:00:00 Test Item Value Reference Range Interpretation Comments Sodium Level (test code = 2951-2) 138 mmol/L 136-145 [facility])Serum or plasma potassium measurement (moles/volume)2019-09-11 05:00:00 Test Item Value Reference Range Interpretation Comments Potassium Level (test code = 4.4 mmol/L 3.5-5.1 2823-3) [facility])Serum or plasma chloride measurement (moles/volume)2019-09-11 05:00:00 Test Item Value Reference Range Interpretation Comments Chloride Level (test code = 100 mmol/L 98-107 2075-0) [facility])Serum or plasma carbon dioxide, total measurement (moles/volume)2019-09-11 05:00:00 Test Item Value Reference Range Interpretation Comments Carbon Dioxide Level (test code = 29 mmol/L 22-29 8-9) [facility])Serum or plasma anion [id number] 05:00:00 Test Item Value Reference Range Interpretation Comments Anion Gap (test code = 95778-5) 13 mmol/L 10-20 [facility])Serum or plasma urea nitrogen measurement (mass/volume)2019-09-11 05:00:00 Test Item Value Reference Range Interpretation Comments Blood Urea Nitrogen (test code = 13 mg/dL 7.0-18.7 3094-0) [facility])Serum or plasma creatinine measurement (mass/volume)2019-09-11 05:00:00 Test Item Value Reference Range Interpretation Comments Creatinine (test code = 2160-0) 0.87 mg/dL 0.6-1.1 [facility])Estimated glomerular filtration rate (GFR) by Modification of Diet in Renal Disease (2019-09-11 05:00:00 Test Item Value Reference Range Interpretation Comments Estimated GFR (MDRD) (test code = 69 63786-9) [facility])Glucose [Mass/volume] in Serum or Plasma 2019-09-11 05:00:00 Test Item Value Reference Range Interpretation Comments Glucose Level (test code = 2345-7) 94 mg/dL 70-105 [facility])Serum or plasma calcium measurement (mass/volume)2019-09-11 05:00:00 Test Item Value Reference Range Interpretation Comments Calcium Level (test code = 84833-7) 9.4 mg/dL 7.8-10.44 [facility])Blood hemoglobin measurement (mass/volume) 2019-09-11 04:35:00 Test Item Value Reference Range Interpretation Comments Hemoglobin (test code = 718-7) 10.0 g/dL 12.0-16.0 [facility])Automated erythrocyte mean corpuscular volume 2019-09-11 04:35:00 Test Item Value Reference Range Interpretation Comments Mean Corpuscular Volume (test code = 88.6 fL 78.0-98.0 787-2) [facility])Automated erythrocyte mean corpuscular hemoglobin (mass per erythrocyte)2019-09-11 04:35:00 Test Item Value Reference Range Interpretation Comments Mean Corpuscular Hemoglobin (test 27.3 pg 27.0-31.0 code = 785-6) [facility])Automated erythrocyte mean corpuscular hemoglobin concentration measurement (mass/[id number] 04:35:00 Test Item Value Reference Range Interpretation Comments Mean Corpuscular Hemoglobin Concent 30.9 g/dL 32.0-36.0 (test code = 786-4) [facility])Automated erythrocyte distribution width ratio 2019-09-11 04:35:00 Test Item Value Reference Range Interpretation Comments Red Cell Distribution Width (test code 12.1 % 11.5-14.5 = 788-0) [facility])Automated blood platelet count (count/volume) 2019-09-11 04:35:00 Test Item Value Reference Range Interpretation Comments Platelet Count (test code = 319 thou/uL 130-400 777-3) [facility])Automated blood platelet mean wjmnqv3972-97-66 04:35:00 Test Item Value Reference Range Interpretation Comments Mean Platelet Volume (test code = 6.9 fL 7.4-10.4 98466-9) [facility])Manual blood segmented neutrophils/100 psvpekgbrc2789-90-72 04:35:00 Test Item Value Reference Range Interpretation Comments Neutrophils % (Manual) (test code = 57 % 42-75 769-0) [facility])Manual blood band neutrophils form/100 bxqngotavp1152-41-09 04:35:00 Test Item Value Reference Range Interpretation Comments Band Neutrophils % (Manual) (test code 7 % 5-11 = 764-1) [facility])Manual blood lymphocytes/100 leukocytes 2019-09-11 04:35:00 Test Item Value Reference Range Interpretation Comments Lymphocytes % (Manual) (test code = 22 % 21-51 737-7) [facility])Manual blood monocytes/100 leukocytes 2019-09-11 04:35:00 Test Item Value Reference Range Interpretation Comments Monocytes % (Manual) (test code = 10 % 0-10 744-3) [facility])Manual blood eosinophils/100 leukocytes 2019-09-11 04:35:00 Test Item Value Reference Range Interpretation Comments Eosinophils % (Manual) (test code = 2 % 0-10 714-6) [facility])Manual blood basophils/100 leukocytes 2019-09-11 04:35:00 Test Item Value Reference Range Interpretation Comments Basophils % (Manual) (test code = 1 % 0-2 707-0) [facility])Manual blood metamyelocytes/100 leukocytes 2019-09-11 04:35:00 Test Item Value Reference Range Interpretation Comments Metamyelocytes % (manual) (test code = 1 % 0-0 740-1) [facility])Platelet adequacy [Presence] in Blood by Light kyybhikmgx8339-37-72 04:35:00 Test Item Value Reference Range Interpretation Comments Platelet Morphology Comment Appears Adequate (test code = 9317-9) [facility])Leukocytes [#/volume] in Blood by Automated [id number] 04:35:00 Test Item Value Reference Range Interpretation Comments White Blood Count (test code = 7.5 thou/uL 4.8-10.8 6690-2) [facility])Blood erythrocytes automated count (number/volume)2019-09-11 04:35:00 Test Item Value Reference Range Interpretation Comments Red Blood Count (test code = 3.66 mill/uL 4.20-5.40 789-8) [facility])Leukocytes [#/volume] in Blood by Automated [id number] 04:35:00 Test Item Value Reference Range Interpretation Comments White Blood Count (test code = 7.5 thou/uL 4.8-10.8 6690-2) [facility])Blood erythrocytes automated count (number/volume)2019-09-11 04:35:00 Test Item Value Reference Range Interpretation Comments Red Blood Count (test code = 3.66 mill/uL 4.20-5.40 789-8) [facility])Blood hemoglobin measurement (mass/volume) 2019-09-11 04:35:00 Test Item Value Reference Range Interpretation Comments Hemoglobin (test code = 718-7) 10.0 g/dL 12.0-16.0 [facility])Automated erythrocyte mean corpuscular volume 2019-09-11 04:35:00 Test Item Value Reference Range Interpretation Comments Mean Corpuscular Volume (test code = 88.6 fL 78.0-98.0 787-2) [facility])Automated erythrocyte mean corpuscular hemoglobin (mass per erythrocyte)2019-09-11 04:35:00 Test Item Value Reference Range Interpretation Comments Mean Corpuscular Hemoglobin (test 27.3 pg 27.0-31.0 code = 785-6) [facility])Automated erythrocyte mean corpuscular hemoglobin concentration measurement (mass/acb3101-11-35 04:35:00 Test Item Value Reference Range Interpretation Comments Mean Corpuscular Hemoglobin Concent 30.9 g/dL 32.0-36.0 (test code = 786-4) [facility])Automated erythrocyte distribution width ratio 2019-09-11 04:35:00 Test Item Value Reference Range Interpretation Comments Red Cell Distribution Width (test code 12.1 % 11.5-14.5 = 788-0) [facility])Automated blood platelet count (count/volume) 2019-09-11 04:35:00 Test Item Value Reference Range Interpretation Comments Platelet Count (test code = 319 thou/uL 130-400 777-3) [facility])Automated blood platelet mean [id number] 04:35:00 Test Item Value Reference Range Interpretation Comments Mean Platelet Volume (test code = 6.9 fL 7.4-10.4 48857-3) [facility])Manual blood segmented neutrophils/100 bgifbkojlq3468-94-27 04:35:00 Test Item Value Reference Range Interpretation Comments Neutrophils % (Manual) (test code = 57 % 42-75 769-0) [facility])Manual blood band neutrophils form/100 rhxjihkvcy2293-82-00 04:35:00 Test Item Value Reference Range Interpretation Comments Band Neutrophils % (Manual) (test code 7 % 5-11 = 764-1) [facility])Manual blood lymphocytes/100 leukocytes 2019-09-11 04:35:00 Test Item Value Reference Range Interpretation Comments Lymphocytes % (Manual) (test code = 22 % 21-51 737-7) [facility])Manual blood monocytes/100 leukocytes 2019-09-11 04:35:00 Test Item Value Reference Range Interpretation Comments Monocytes % (Manual) (test code = 10 % 0-10 744-3) [facility])Manual blood eosinophils/100 leukocytes 2019-09-11 04:35:00 Test Item Value Reference Range Interpretation Comments Eosinophils % (Manual) (test code = 2 % 0-10 714-6) [facility])Manual blood basophils/100 leukocytes 2019-09-11 04:35:00 Test Item Value Reference Range Interpretation Comments Basophils % (Manual) (test code = 1 % 0-2 707-0) [facility])Manual blood metamyelocytes/100 leukocytes 2019-09-11 04:35:00 Test Item Value Reference Range Interpretation Comments Metamyelocytes % (manual) (test code = 1 % 0-0 740-1) [facility])Platelet adequacy [Presence] in Blood by Light zgjyxmufer7448-19-48 04:35:00 Test Item Value Reference Range Interpretation Comments Platelet Morphology Comment Appears Adequate (test code = 9317-9) [facility])Bacterial [id number] 09:15:00 Test Item Value Reference Range Interpretation Comments Bacterial Culture (test GS code = BACTC) Bacterial Culture (test MO GPC IN CL code = BACTC1) O:SAUR (test code = Staphylococcus aureus SAUR) Amoxicillin * (test R code = AXD) Amoxicillin/Clavulanic S * (test code = ACD) Azithromycin * (test R code = AZID) Cefaclor * (test code = S CFD) Cefepime * (test code = S CPED) Cefotaxime * (test code S = CFTD) Ceftazidime * (test S code = CAZD) Ceftriaxone * (test S code = CTRD) Cefuroxime (sodium) * S (test code = CRMND) Ciprofloxacin (test <=0.5 S code = CIPGP63) Clarithromycin * (test R code = CLD) Clindamycin (test code <=0.25 S = CM) Doxycycline * (test S code = DOXD) Erthromycin (test code >=8 R = EGP) Gentamicin (test code = <=0.5 S GMGP) Imipenem (test code = S IMD) Linezolid (test code = 2 S LNZGP) Levofloxacin (test code 0.25 S = LEVGP) Moxifloxacin (test code <=0.25 S = MXFGP) Ofloxacin * (test code S = OFLGP) Oxacillin (test code = <=0.25 S OX1) Piperacillin * (test R code = PIPD) Rifampin (test code = <=0.5 S RIFGP) Tetracycline (test code <=1 S = TEGP) Trimethoprim/Sulfametho <=10 S xazole (test code = SXTGP) Vancomycin (test code = 1 S VAGP) Bacterial Culture (test QUANTITATION: code = BACTC1.1) Bacterial Culture (test Moderate code = BACTC1.1) Comment right [id number] 05:48:00 Test Item Value Reference Range Interpretation Comments Chemistry (test code 136 mmol/L 136-145 N = NA-T) Chemistry (test code 3.9 mmol/L 3.5-5.1 N = K-T) Chemistry (test code 100 mmol/L 98-107 N = CL) Chemistry (test code 28 mmol/L 22-29 N = CO2) Chemistry (test code 12 mmol/L 10-20 N = ANGP) Chemistry (test code 11 mg/dL 7.0-18.7 N = BUN) Chemistry (test code 0.81 mg/dL 0.6-1.1 N = CREATT) Chemistry (test code 75 Referen ce Range for = EGFRMDRD) Estimated GFR: Greater than 90 mL/min/ 1.73 m2NOTE:The MDRD equation has no t been validated for u se with theelderly (ove r 70 years of age), women, patients with serious comorbi d condition or pe rsons with extremes o fbody size, muscle ma ss, or nutritional sta tus. Chemistry (test code 117 mg/dL 70-105 H = GLU-T) Chemistry (test code 9.1 mg/dL 7.8-10.44 N = CA) [id number] 05:42:00 Test Item Value Reference Range Interpretation Comments Hematology (test code = 9.2 thou/uL 4.8-10.8 N WBCT) Hematology (test code = 2.79 mill/uL 4.20-5.40 L RBCT) Hematology (test code = 8.0 g/dL 12.0-16.0 L HGBT) Hematology (test code = 24.7 % 36.0-47.0 L HCTT) Hematology (test code = 88.5 fL 78.0-98.0 N MCV) Hematology (test code = 28.7 pg 27.0-31.0 N MCH) Hematology (test code = 32.5 g/dL 32.0-36.0 N MCHC) Hematology (test code = 12.2 % 11.5-14.5 N RDW) Hematology (test code = 344 thou/uL 130-400 N PLTT) Hematology (test code = 7.0 fL 7.4-10.4 L MPV) Hematology (test code = 76 % 42-75 H NE) Hematology (test code = 3 % 5-11 L BA) Hematology (test code = 18 % 21-51 L LY) Hematology (test code = 3 % 0-10 N MO) Hematology (test code = SLIGHT = 6-15 cells 0-5/hpf HYPO) (100X) Hematology (test code = Appears Adequate PCOMMENT) Chemistry - Kwvtmhby9711-27-60 10:21:00 Test Item Value Reference Range Interpretation Comments Chemistry - Specials Greater than 2000 211-911 H (test code = VITB12) pg/mL Chemistry - Pimlbfft8206-13-12 10:04:00 Test Item Value Reference Range Interpretation Comments Chemistry - Specials (test code = 15.90 ng/mL 7.0-31.4 N FOLATE) Serum or plasma folate measurement (mass/volume)2019-09-09 08:35:00 Test Item Value Reference Range Interpretation Comments Folate (test code = 2284-8) 15.90 ng/mL 7.0-31.4 [facility])Serum or plasma folate measurement (mass/volume)2019-09-09 08:35:00 Test Item Value Reference Range Interpretation Comments Folate (test code = 2284-8) 15.90 ng/mL 7.0-31.4 [facility])Ecyapbcfiy5543-09-46 05:43:00 Test Item Value Reference Range Interpretation Comments Hematology (test code = 11.2 thou/uL 4.8-10.8 H WBCT) Hematology (test code = 2.89 mill/uL 4.20-5.40 L RBCT) Hematology (test code = 8.2 g/dL 12.0-16.0 L HGBT) Hematology (test code = 25.7 % 36.0-47.0 L HCTT) Hematology (test code = MCV) 89.1 fL 78.0-98.0 N Hematology (test code = MCH) 28.5 pg 27.0-31.0 N Hematology (test code = 32.0 g/dL 32.0-36.0 N MCHC) Hematology (test code = RDW) 12.2 % 11.5-14.5 N Hematology (test code = 287 thou/uL 130-400 N PLTT) Hematology (test code = MPV) 7.5 fL 7.4-10.4 N Hematology (test code = NE) 71 % 42-75 N Hematology (test code = BA) 1 % 5-11 L Hematology (test code = LY) 15 % 21-51 L Hematology (test code = MO) 9 % 0-10 N Hematology (test code = EO) 4 % 0-10 N Hematology (test code = Appears Adequate PCOMMENT) Hematology (test code = MC) Normal [id number] 05:42:00 Test Item Value Reference Range Interpretation Comments Chemistry (test code 138 mmol/L 136-145 N = NA-T) Chemistry (test code 3.9 mmol/L 3.5-5.1 N = K-T) Chemistry (test code 107 mmol/L 98-107 N = CL) Chemistry (test code 23 mmol/L 22-29 N = CO2) Chemistry (test code 12 mmol/L 10-20 N = ANGP) Chemistry (test code 13 mg/dL 7.0-18.7 N = BUN) Chemistry (test code 0.79 mg/dL 0.6-1.1 N = CREATT) Chemistry (test code 77 Referen ce Range for = EGFRMDRD) Estimated GFR: Greater than 90 mL/min/ 1.73 m2NOTE:The MDRD equation has no t been validated for u se with theelderly (ove r 70 years of age), women, patients with serious comorbi d condition or pe rsons with extremes o fbody size, muscle ma ss, or nutritional sta tus. Chemistry (test code 97 mg/dL 70-105 N = GLU-T) Chemistry (test code 8.9 mg/dL 7.8-10.44 N = CA) RBC jipthgkzcc2947-08-74 04:51:00 Test Item Value Reference Range Interpretation Comments Red Cell Morphology Comment (test code Normal = 6742-1) [facility])RBC lnqbkaevde1283-44-30 04:51:00 Test Item Value Reference Range Interpretation Comments Red Cell Morphology Comment (test code Normal = 6742-1) [facility])Chemistry - Kxtlomeb9045-83-86 19:27:00 Test Item Value Reference Range Interpretation Comments Chemistry - Specials (test code 765.30 ng/mL 10-291 H = LAWSON) Wwceamiib0606-03-10 19:07:00 Test Item Value Reference Range Interpretation Comments Chemistry (test code = IRON) 24 ug/dL 50-170 L [id number] 19:07:00 Test Item Value Reference Range Interpretation Comments Chemistry (test code = TIBC) 184 mcg/dL 265-497 L Serum or plasma iron measurement (mass/volume)2019-09-08 18:30:00 Test Item Value Reference Range Interpretation Comments Iron Level (test code = 2498-4) 24 ug/dL 50-170 [facility])Serum or plasma unsaturated iron binding capacity measurement (mass/volume)2019-09-08 18:30:00 Test Item Value Reference Range Interpretation Comments Total Iron Binding Capacity (test 184 mcg/dL 265-497 code = 2501-5) [facility])Serum or plasma ferritin measurement (mass/volume)2019-09-08 18:30:00 Test Item Value Reference Range Interpretation Comments Ferritin (test code = 2276-4) 765.30 ng/mL 10-291 [facility])Serum or plasma iron measurement (mass/volume) 2019-09-08 18:30:00 Test Item Value Reference Range Interpretation Comments Iron Level (test code = 2498-4) 24 ug/dL 50-170 [facility])Serum or plasma unsaturated iron binding capacity measurement (mass/volume)2019-09-08 18:30:00 Test Item Value Reference Range Interpretation Comments Total Iron Binding Capacity (test 184 mcg/dL 265-497 code = 2501-5) [facility])Serum or plasma ferritin measurement (mass/volume)2019-09-08 18:30:00 Test Item Value Reference Range Interpretation Comments Ferritin (test code = 2276-4) 765.30 ng/mL 10-291 [facility])[id number] 13:02:00 Test Item Value Reference Range Interpretation Comments Urinalysis (test code = Colorless Yellow UACLR) Urinalysis (test code = Clear Clear UACLY) Urinalysis (test code = SPGR) 1.013 1.002-1.036 N Urinalysis (test code = DAVINA) 6.0 5.0-9.0 N Urinalysis (test code = Negative Karol/uL Negative UALEU) Urinalysis (test code = Negative Negative UANIT) Urinalysis (test code = Negative mg/dL Neg-Trace PROUADIP) Urinalysis (test code = Normal mg/dL Negative GLUCU) Urinalysis (test code = KETU) Negative mg/dL Negative Urinalysis (test code = Normal mg/dL Less than 2 UAUROB) Urinalysis (test code = Negative Negative UABIL) Urinalysis (test code = Negative Negative UABLD) Urine Source: Urine VoidedColor of Urine by [id number] 12:00:00 Test Item Value Reference Range Interpretation Comments Urine Color (test code = 35960-3) Colorless Yellow [facility] ([place])Urine clarity by refractometry automated 2019-09-08 12:00:00 Test Item Value Reference Range Interpretation Comments Urine Clarity (test code = 91247-5) Clear Clear [facility] ([place])Specific gravity of Urine by Test strip 2019-09-08 12:00:00 Test Item Value Reference Range Interpretation Comments Urine Specific [place] (test code = 1.013 1.002-1.036 5811-5) [facility]. [facility]. [facility] ([place])Urine pH measurement by qqpdrmuz4281-01-92 12:00:00 Test Item Value Reference Range Interpretation Comments Urine pH (test code = 5803-2) 6.0 5.0-9.0 [facility]. [facility] ([place])Nitrite [Presence] in Urine by Test strip 2019-09-08 12:00:00 Test Item Value Reference Range Interpretation Comments Urine Nitrite (test code = 5802-4) Negative Negative [facility]. [place])Bilirubin.total [Presence] in Urine by Test [id number] 12:00:00 Test Item Value Reference Range Interpretation Comments Urine Bilirubin (test code = 5770-3) Negative Negative [facility] ([place])Urine hemoglobin detection by test strip 2019-09-08 12:00:00 Test Item Value Reference Range Interpretation Comments Urine Blood (test code = 5794-3) Negative Negative [facility] ([place])Color of Urine by Kmwf1548-36-34 12:00:00 Test Item Value Reference Range Interpretation Comments Urine Color (test code = 83927-3) Colorless Yellow [facility] ([place])Urine clarity by refractometry automated 2019-09-08 12:00:00 Test Item Value Reference Range Interpretation Comments Urine Clarity (test code = 62897-7) Clear Clear [facility] ([place])Specific gravity of Urine by Test strip 2019-09-08 12:00:00 Test Item Value Reference Range Interpretation Comments Urine Specific [place] (test code = 1.013 1.002-1.036 5811-5) [facility]. [place] ([place])Urine pH measurement by vwdtzzfa5596-39-28 12:00:00 Test Item Value Reference Range Interpretation Comments Urine pH (test code = 5803-2) 6.0 5.0-9.0 [facility]. [facility]. [place])Nitrite [Presence] in Urine by Test strip 2019-09-08 12:00:00 Test Item Value Reference Range Interpretation Comments Urine Nitrite (test code = 5802-4) Negative Negative [facility]. [place] [facility] ([place])Bilirubin.total [Presence] in Urine by Test [id number] 12:00:00 Test Item Value Reference Range Interpretation Comments Urine Bilirubin (test code = 5770-3) Negative Negative [facility] [place] [facility] ([place])Urine hemoglobin detection by test strip 2019-09-08 12:00:00 Test Item Value Reference Range Interpretation Comments Urine Blood (test code = 5794-3) Negative Negative [facility] [place] [facility] ([place])Color of Urine by [id number] 12:00:00 Test Item Value Reference Range Interpretation Comments Urine Color (test code = 37702-9) Colorless Yellow [facility] St[facility]. [place] ([place])Urine clarity by refractometry automated 2019-09-08 12:00:00 Test Item Value Reference Range Interpretation Comments Urine Clarity (test code = 53420-6) Clear Clear [facility]. [facility]. [place] ([place])Specific gravity of Urine by Test strip 2019-09-08 12:00:00 Test Item Value Reference Range Interpretation Comments Urine Specific [place] (test code = 1.013 1.002-1.036 5811-5) [facility] St[facility]. [place] ([place])Urine pH measurement by [id number] 12:00:00 Test Item Value Reference Range Interpretation Comments Urine pH (test code = 5803-2) 6.0 5.0-9.0 [facility]. [facility] ([place])Nitrite [Presence] in Urine by Test strip 2019-09-08 12:00:00 Test Item Value Reference Range Interpretation Comments Urine Nitrite (test code = 5802-4) Negative Negative [facility] St[facility] ([place])Bilirubin.total [Presence] in Urine by Test [id number] 12:00:00 Test Item Value Reference Range Interpretation Comments Urine Bilirubin (test code = 5770-3) Negative Negative [facility] St[facility] ([place])Urine hemoglobin detection by test strip 2019-09-08 12:00:00 Test Item Value Reference Range Interpretation Comments Urine Blood (test code = 5794-3) Negative Negative [facility] St[facility] ([place])Bacterial culture w [id number] 11:53:00 Test Item Value Reference Range Interpretation Comments Bacterial Culture (test Staphylococcus aureus code = Bacterial Culture) [facility] ([place])Bacterial culture w [id number] 11:53:00 Test Item Value Reference Range Interpretation Comments Bacterial Culture (test Staphylococcus aureus code = Bacterial Culture) [facility] ([place])Chemistry - [id number] 11:21:00 Test Item Value Reference Range Interpretation Comments Chemistry - Lactate (test code = 1.8 mmol/L 0.5-2.2 N LACTSEP-T) [id number] 11:08:00 Test Item Value Reference Range Interpretation Comments Chemistry (test code 135 mmol/L 136-145 L = NA-T) Chemistry (test code 4.6 mmol/L 3.5-5.1 N = K-T) Chemistry (test code 102 mmol/L 98-107 N = CL) Chemistry (test code 21 mmol/L 22-29 L = CO2) Chemistry (test code 17 mmol/L 10-20 N = ANGP) Chemistry (test code 15 mg/dL 7.0-18.7 N = BUN) Chemistry (test code 0.85 mg/dL 0.6-1.1 N = CREATT) Chemistry (test code 71 Referen ce Range for = EGFRMDRD) Estimated GFR: Greater than 90 mL/min/ 1.73 m2NOTE:The MDRD equation has no t been validated for u se with theelderly (ove r 70 years of age), women, patients with serious comorbi d condition or pe rsons with extremes o fbody size, muscle ma ss, or nutritional sta tus. Chemistry (test code 126 mg/dL 70-105 H = GLU-T) Chemistry (test code 9.3 mg/dL 7.8-10.44 N = CA) Chemistry (test code 0.9 mg/dL 0.2-1.2 N = TBILI-T) Chemistry (test code 7.6 g/dL 6.0-8.3 N = TP) Chemistry (test code 3.3 g/dL 3.5-5.0 L = ALB) Chemistry (test code 4.3 g/dL 2.4-3.5 H = GLOB) Chemistry (test code 0.8 g/dL 1.2-2.2 L = AG) Chemistry (test code 283 U/L 40-110 H = ALP) Chemistry (test code 54 U/L 5-34 H = AST) Chemistry (test code 80 U/L 8-55 H = ALT) [id number] 11:02:00 Test Item Value Reference Range Interpretation Comments Hematology (test code = 16.0 thou/uL 4.8-10.8 H WBCT) Hematology (test code = 3.18 mill/uL 4.20-5.40 L RBCT) Hematology (test code = 9.2 g/dL 12.0-16.0 L HGBT) Hematology (test code = 27.7 % 36.0-47.0 L HCTT) Hematology (test code = MCV) 87.1 fL 78.0-98.0 N Hematology (test code = MCH) 28.8 pg 27.0-31.0 N Hematology (test code = 33.1 g/dL 32.0-36.0 N MCHC) Hematology (test code = RDW) 12.2 % 11.5-14.5 N Hematology (test code = 311 thou/uL 130-400 N PLTT) Hematology (test code = MPV) 7.4 fL 7.4-10.4 N Hematology (test code = NE) 80 % 42-75 H Hematology (test code = LY) 16 % 21-51 L Hematology (test code = EO) 4 % 0-10 N Hematology (test code = VAC) SLIGHT Hematology (test code = SMU) SLIGHT Hematology (test code = Appears Adequate PCOMMENT) Serum or plasma lactate measurement (moles/volume)2019-09-08 10:55:00 Test Item Value Reference Range Interpretation Comments Lactic Acid Level (test code = 1.8 mmol/L 0.5-2.2 2524-7) [facility] ([place])Serum or plasma lactate measurement (moles/volume)2019-09-08 10:55:00 Test Item Value Reference Range Interpretation Comments Lactic Acid Level (test code = 1.8 mmol/L 0.5-2.2 2524-7) [facility] ([place])Serum or plasma lactate measurement (moles/volume)2019-09-08 10:55:00 Test Item Value Reference Range Interpretation Comments Lactic Acid Level (test code = 1.8 mmol/L 0.5-2.2 2524-7) [facility])Chemistry - [id number] 10:45:00 Test Item Value Reference Range Interpretation Comments Chemistry - Specials Negative NEGATIVE Method of sensitivity- (test code = BHCGST) Indeter minant: results should be repea lay after 48-72 hrs Positive: resul ts may be detected as early as 1 day after the first missed me nses. Serum or plasma urea nitrogen measurement (mass/volume)2019-09-08 10:27:00 Test Item Value Reference Range Interpretation Comments Blood Urea Nitrogen (test code = 15 mg/dL 7.0-18.7 3094-0) [facility])Lymphocytes [#/volume] in Blood by Automated [id number] 10:27:00 Test Item Value Reference Range Interpretation Comments Lymphocytes # (test code = Not Reportable 731-0) [facility])Serum or plasma creatinine measurement (mass/volume)2019-09-08 10:27:00 Test Item Value Reference Range Interpretation Comments Creatinine (test code = 2160-0) 0.85 mg/dL 0.6-1.1 [facility] ([place])Blood leukocyte toxic vacuoles detection by light mddeoxyggz3871-06-31 10:27:00 Test Item Value Reference Range Interpretation Comments White Blood Cell Morphology (test code SLIGHT = 80335-6) [facility])Blood smudge cells detection by light zsdoflhhng7652-36-28 10:27:00 Test Item Value Reference Range Interpretation Comments Smudge Cells (test code = 7798-2) SLIGHT [facility])Estimated glomerular filtration rate (GFR) by Modification of Diet in Renal Disease (2019-09-08 10:27:00 Test Item Value Reference Range Interpretation Comments Estimated GFR (MDRD) (test code = 71 38339-2) [facility])Glucose [Mass/volume] in Serum or Plasma 2019-09-08 10:27:00 Test Item Value Reference Range Interpretation Comments Glucose Level (test code = 2345-7) 126 mg/dL 70-105 [facility])Serum or plasma calcium measurement (mass/volume)2019-09-08 10:27:00 Test Item Value Reference Range Interpretation Comments Calcium Level (test code = 02950-4) 9.3 mg/dL 7.8-10.44 [facility])Serum or plasma total bilirubin measurement (mass/volume)2019-09-08 10:27:00 Test Item Value Reference Range Interpretation Comments Total Bilirubin (test code = 0.9 mg/dL 0.2-1.2 1975-2) [facility])Serum or plasma protein measurement (mass/volume)2019-09-08 10:27:00 Test Item Value Reference Range Interpretation Comments Serum Total Protein (test code = 7.6 g/dL 6.0-8.3 2885-2) [facility])Serum or plasma albumin measurement by bromocresol green (BCG) dye binding method ([id number] 10:27:00 Test Item Value Reference Range Interpretation Comments Albumin (test code = 67101-7) 3.3 g/dL 3.5-5.0 [facility])Globulin [Mass/volume] in Serum by calculation 2019-09-08 10:27:00 Test Item Value Reference Range Interpretation Comments Globulin (test code = 31562-3) 4.3 g/dL 2.4-3.5 [facility])Albumin/Globulin [Mass Ratio] in Serum or [id number] 10:27:00 Test Item Value Reference Range Interpretation Comments Albumin/Globulin Ratio (test code = 0.8 g/dL 1.2-2.2 1759-0) [facility])Alkaline phosphatase [Enzymatic activity/volume] in Serum or [id number] 10:27:00 Test Item Value Reference Range Interpretation Comments Alkaline Phosphatase (test code = 283 U/L 40-110 6768-6) [facility])Serum or plasma aspartate aminotransferase measurement (enzymatic activity/volume)2019-09-08 10:27:00 Test Item Value Reference Range Interpretation Comments Aspartate Amino Transf (AST/SGOT) 54 U/L 5-34 (test code = 1920-8) [facility])Serum or plasma alanine aminotransferase measurement without P-5'-P (enzymatic [id number] 10:27:00 Test Item Value Reference Range Interpretation Comments Alanine Aminotransferase (ALT/SGPT) 80 U/L 8-55 (test code = 1744-2) [facility])Serum human chorionic gonadotropin detection for pkcayxsfx8490-85-58 10:27:00 Test Item Value Reference Range Interpretation Comments Serum Test, Qualitative Negative NEGATIVE (test code = 2118-8) [facility])Leukocytes [#/volume] in Blood by Automated [id number] 10:27:00 Test Item Value Reference Range Interpretation Comments White Blood Count (test code = 16.0 thou/uL 4.8-10.8 6690-2) [facility])Blood erythrocytes automated count (number/volume)2019-09-08 10:27:00 Test Item Value Reference Range Interpretation Comments Red Blood Count (test code = 3.18 mill/uL 4.20-5.40 789-8) [facility])Blood hemoglobin measurement (mass/volume) 2019-09-08 10:27:00 Test Item Value Reference Range Interpretation Comments Hemoglobin (test code = 718-7) 9.2 g/dL 12.0-16.0 [facility])Automated erythrocyte mean corpuscular volume 2019-09-08 10:27:00 Test Item Value Reference Range Interpretation Comments Mean Corpuscular Volume (test code = 87.1 fL 78.0-98.0 787-2) [facility])Automated erythrocyte mean corpuscular hemoglobin (mass per erythrocyte)2019-09-08 10:27:00 Test Item Value Reference Range Interpretation Comments Mean Corpuscular Hemoglobin (test 28.8 pg 27.0-31.0 code = 785-6) [facility])Automated erythrocyte mean corpuscular hemoglobin concentration measurement (mass/[id number] 10:27:00 Test Item Value Reference Range Interpretation Comments Mean Corpuscular Hemoglobin Concent 33.1 g/dL 32.0-36.0 (test code = 786-4) [facility])Automated erythrocyte distribution width ratio 2019-09-08 10:27:00 Test Item Value Reference Range Interpretation Comments Red Cell Distribution Width (test code 12.2 % 11.5-14.5 = 788-0) [facility])Automated blood platelet count (count/volume) 2019-09-08 10:27:00 Test Item Value Reference Range Interpretation Comments Platelet Count (test code = 311 thou/uL 130-400 777-3) [facility])Automated blood platelet mean [id number] 10:27:00 Test Item Value Reference Range Interpretation Comments Mean Platelet Volume (test code = 7.4 fL 7.4-10.4 65135-7) [facility])Lymphocytes [#/volume] in Blood by Automated [id number] 10:27:00 Test Item Value Reference Range Interpretation Comments Lymphocytes # (test code = Not Reportable 731-0) [facility])Manual blood segmented neutrophils/100 aqphtpcmey8967-09-42 10:27:00 Test Item Value Reference Range Interpretation Comments Neutrophils % (Manual) (test code = 80 % 42-75 769-0) [facility])Manual blood lymphocytes/100 leukocytes 2019-09-08 10:27:00 Test Item Value Reference Range Interpretation Comments Lymphocytes % (Manual) (test code = 16 % 21-51 737-7) [facility])Manual blood eosinophils/100 leukocytes 2019-09-08 10:27:00 Test Item Value Reference Range Interpretation Comments Eosinophils % (Manual) (test code = 4 % 0-10 714-6) [facility])Blood leukocyte toxic vacuoles detection by light yznqejnttk8095-13-08 10:27:00 Test Item Value Reference Range Interpretation Comments White Blood Cell Morphology (test code SLIGHT = 95898-0) [facility])Blood smudge cells detection by light qrempcqbdv9364-05-91 10:27:00 Test Item Value Reference Range Interpretation Comments Smudge Cells (test code = 7798-2) SLIGHT [facility])Platelet adequacy [Presence] in Blood by Light bhlrxabfuf6355-69-49 10:27:00 Test Item Value Reference Range Interpretation Comments Platelet Morphology Comment Appears Adequate (test code = 9317-9) [facility])Serum or plasma sodium measurement (moles/volume)2019-09-08 10:27:00 Test Item Value Reference Range Interpretation Comments Sodium Level (test code = 2951-2) 135 mmol/L 136-145 [facility])Serum or plasma potassium measurement (moles/volume)2019-09-08 10:27:00 Test Item Value Reference Range Interpretation Comments Potassium Level (test code = 4.6 mmol/L 3.5-5.1 2823-3) [facility] ([place])Serum or plasma chloride measurement (moles/volume)2019-09-08 10:27:00 Test Item Value Reference Range Interpretation Comments Chloride Level (test code = 102 mmol/L 98-107 5-0) [facility])Serum or plasma carbon dioxide, total measurement (moles/volume)2019-09-08 10:27:00 Test Item Value Reference Range Interpretation Comments Carbon Dioxide Level (test code = 21 mmol/L 2027-) [facility])Serum or plasma total bilirubin measurement (mass/volume)2019-09-08 10:27:00 Test Item Value Reference Range Interpretation Comments Total Bilirubin (test code = 0.9 mg/dL 0.2-1.2 1974-2) [facility] ([place])Serum or plasma protein measurement (mass/volume)2019-09-08 10:27:00 Test Item Value Reference Range Interpretation Comments Serum Total Protein (test code = 7.6 g/dL 6.0-8.3 2885-2) [facility])Serum or plasma albumin measurement by bromocresol green (BCG) dye binding method ([id number] 10:27:00 Test Item Value Reference Range Interpretation Comments Albumin (test code = 48588-4) 3.3 g/dL 3.5-5.0 [facility])Globulin [Mass/volume] in Serum by calculation 2019-09-08 10:27:00 Test Item Value Reference Range Interpretation Comments Globulin (test code = 59245-8) 4.3 g/dL 2.4-3.5 [facility])Albumin/Globulin [Mass Ratio] in Serum or Sdrfyb2651-06-60 10:27:00 Test Item Value Reference Range Interpretation Comments Albumin/Globulin Ratio (test code = 0.8 g/dL 1.2-2.2 1759-0) [facility])Alkaline phosphatase [Enzymatic activity/volume] in Serum or Lsiofb7127-34-25 10:27:00 Test Item Value Reference Range Interpretation Comments Alkaline Phosphatase (test code = 283 U/L 40-110 6768-6) [facility])Serum or plasma aspartate aminotransferase measurement (enzymatic activity/volume)2019-09-08 10:27:00 Test Item Value Reference Range Interpretation Comments Aspartate Amino Transf (AST/SGOT) 54 U/L 5-34 (test code = 1920-8) [facility])Serum or plasma anion [id number] 10:27:00 Test Item Value Reference Range Interpretation Comments Anion Gap (test code = 10679-1) 17 mmol/L 10-20 [facility])Serum or plasma alanine aminotransferase measurement without P-5'-P (enzymatic oociwe7179-20-81 10:27:00 Test Item Value Reference Range Interpretation Comments Alanine Aminotransferase (ALT/SGPT) 80 U/L 8-55 (test code = 1744-2) [facility])Serum human chorionic gonadotropin detection for dzogtxtpm7866-70-11 10:27:00 Test Item Value Reference Range Interpretation Comments Serum Test, Qualitative Negative NEGATIVE (test code = 2118-8) [facility])Serum or plasma total bilirubin measurement (mass/volume)2019-09-08 10:27:00 Test Item Value Reference Range Interpretation Comments Total Bilirubin (test code = 0.9 mg/dL 0.2-1.2 1975-2) [facility])Serum or plasma protein measurement (mass/volume)2019-09-08 10:27:00 Test Item Value Reference Range Interpretation Comments Serum Total Protein (test code = 7.6 g/dL 6.0-8.3 2885-2) [facility])Serum or plasma albumin measurement by bromocresol green (BCG) dye binding method ([id number] 10:27:00 Test Item Value Reference Range Interpretation Comments Albumin (test code = 52002-9) 3.3 g/dL 3.5-5.0 [facility])Globulin [Mass/volume] in Serum by calculation 2019-09-08 10:27:00 Test Item Value Reference Range Interpretation Comments Globulin (test code = 57579-5) 4.3 g/dL 2.4-3.5 [facility])Albumin/Globulin [Mass Ratio] in Serum or [id number] 10:27:00 Test Item Value Reference Range Interpretation Comments Albumin/Globulin Ratio (test code = 0.8 g/dL 1.2-2.2 1759-0) [facility])Alkaline phosphatase [Enzymatic activity/volume] in Serum or Beqgob6473-19-08 10:27:00 Test Item Value Reference Range Interpretation Comments Alkaline Phosphatase (test code = 283 U/L 40-110 6768-6) [facility] ([place])Serum or plasma aspartate aminotransferase measurement (enzymatic activity/volume)2019-09-08 10:27:00 Test Item Value Reference Range Interpretation Comments Aspartate Amino Transf (AST/SGOT) 54 U/L 5-34 (test code = 1920-8) [facility])Serum or plasma alanine aminotransferase measurement without P-5'-P (enzymatic kqtnts2802-67-53 10:27:00 Test Item Value Reference Range Interpretation Comments Alanine Aminotransferase (ALT/SGPT) 80 U/L 8-55 (test code = 1744-2) [facility])Serum human chorionic gonadotropin detection for uyrtzhtrv7089-31-11 10:27:00 Test Item Value Reference Range Interpretation Comments Serum Test, Qualitative Negative NEGATIVE (test code = 2118-8) [facility])Lymphocytes [#/volume] in Blood by Automated eaizh3294-37-62 10:27:00 Test Item Value Reference Range Interpretation Comments Lymphocytes # (test code = Not Reportable 731-0) [facility])Blood leukocyte toxic vacuoles detection by light eeoyazctmx6915-45-67 10:27:00 Test Item Value Reference Range Interpretation Comments White Blood Cell Morphology (test code SLIGHT = 50957-1) [facility])Blood smudge cells detection by light uodnqssxxl1882-61-28 10:27:00 Test Item Value Reference Range Interpretation Comments Smudge Cells (test code = 7798-2) SLIGHT [facility])Serum or plasma cancer antigen 27-29 measurement (units/volume)2019-09-07 16:29:00 Test Item Value Reference Range Interpretation Comments CA 27.29 (test code = 40123-5) 18.3 U/mL [facility])Serum or plasma sodium measurement (moles/volume)2019-09-07 16:29:00 Test Item Value Reference Range Interpretation Comments Sodium Level (test code = 2951-2) 132 mmol/L 136-145 [facility])Serum or plasma potassium measurement (moles/volume)2019-09-07 16:29:00 Test Item Value Reference Range Interpretation Comments Potassium Level (test code = 4.0 mmol/L 3.5-5.1 2823-3) [facility])Serum or plasma chloride measurement (moles/volume)2019-09-07 16:29:00 Test Item Value Reference Range Interpretation Comments Chloride Level (test code = 2075-0) 98 mmol/L 98-107 [facility])Serum or plasma carbon dioxide, total measurement (moles/volume)2019-09-07 16:29:00 Test Item Value Reference Range Interpretation Comments Carbon Dioxide Level (test code = 21 mmol/L 2027-12) [facility])Serum or plasma anion [id number] 16:29:00 Test Item Value Reference Range Interpretation Comments Anion Gap (test code = 22606-4) 17 mmol/L 10-20 [facility])Serum or plasma urea nitrogen measurement (mass/volume)2019-09-07 16:29:00 Test Item Value Reference Range Interpretation Comments Blood Urea Nitrogen (test code = 15 mg/dL 7.0-18.7 3094-0) [facility])Serum or plasma creatinine measurement (mass/volume)2019-09-07 16:29:00 Test Item Value Reference Range Interpretation Comments Creatinine (test code = 2160-0) 0.98 mg/dL 0.6-1.1 [facility])Estimated glomerular filtration rate (GFR) by Modification of Diet in Renal Disease (2019-09-07 16:29:00 Test Item Value Reference Range Interpretation Comments Estimated GFR (MDRD) (test code = 60 59291-2) [facility])Glucose [Mass/volume] in Serum or Plasma 2019-09-07 16:29:00 Test Item Value Reference Range Interpretation Comments Glucose Level (test code = 2345-7) 110 mg/dL 70-105 [facility]Serum or plasma calcium measurement (mass/volume)2019-09-07 16:29:00 Test Item Value Reference Range Interpretation Comments Calcium Level (test code = 29460-3) 9.1 mg/dL 7.8-10.44 [facility] ([place])Serum or plasma total bilirubin measurement (mass/volume)2019-09-07 16:29:00 Test Item Value Reference Range Interpretation Comments Total Bilirubin (test code = 1.1 mg/dL 0.2-1.2 1975-2) [facility])Serum or plasma direct bilirubin measurement (mass/volume)2019-09-07 16:29:00 Test Item Value Reference Range Interpretation Comments Direct Bilirubin (test code = 0.7 mg/dL 0.1-0.3 1967-7) [facility])Serum or plasma protein measurement (mass/volume)2019-09-07 16:29:00 Test Item Value Reference Range Interpretation Comments Serum Total Protein (test code = 6.7 g/dL 6.0-8.3 5-2) [facility])Serum or plasma albumin measurement by bromocresol green (BCG) dye binding method ([id number] 16:29:00 Test Item Value Reference Range Interpretation Comments Albumin (test code = 22987-5) 3.6 g/dL 3.5-5.0 [facility])Globulin [Mass/volume] in Serum by calculation 2019-09-07 16:29:00 Test Item Value Reference Range Interpretation Comments Globulin (test code = 70934-2) 3.1 g/dL 2.4-3.5 [facility])Albumin/Globulin [Mass Ratio] in Serum or [id number] 16:29:00 Test Item Value Reference Range Interpretation Comments Albumin/Globulin Ratio (test code = 1.2 g/dL 1.2-2.2 1759-0) [facility])Serum or plasma uric acid measurement (mass/volume)2019-09-07 16:29:00 Test Item Value Reference Range Interpretation Comments Uric Acid (test code = 3084-1) 4.9 mg/dL 2.6-6.0 [facility])Alkaline phosphatase [Enzymatic activity/volume] in Serum or [id number] 16:29:00 Test Item Value Reference Range Interpretation Comments Alkaline Phosphatase (test code = 308 U/L 40-110 6768-6) [facility])Serum or plasma aspartate aminotransferase measurement (enzymatic activity/volume)2019-09-07 16:29:00 Test Item Value Reference Range Interpretation Comments Aspartate Amino Transf (AST/SGOT) 61 U/L 5-34 (test code = 1920-8) [facility])Serum or plasma lactate dehydrogenase measurement (enzymatic activity/volume) by [id number] 16:29:00 Test Item Value Reference Range Interpretation Comments Lactate Dehydrogenase (test code = 296 U/L 125-220 91933-8) [facility])Serum or plasma alanine aminotransferase measurement without P-5'-P (enzymatic [id number] 16:29:00 Test Item Value Reference Range Interpretation Comments Alanine Aminotransferase (ALT/SGPT) 99 U/L 8-55 (test code = 1744-2) [facility])Serum or plasma phosphate measurement (mass/volume)2019-09-07 16:29:00 Test Item Value Reference Range Interpretation Comments Phosphorus Level (test code = 2.2 mg/dL 2.3-4.7 2777-1) [facility])Serum or plasma carcinoembryonic antigen measurement (mass/volume)2019-09-07 16:29:00 Test Item Value Reference Range Interpretation Comments Carcinoembryonic Antigen (test 0.95 ng/mL <5.0 code = 2039-6) [facility] ([place])CT Chest Abd Pelvis W Con Name: NATALIE COSTACIA : 1970 [facility] Name: JULISSANATALIEAsya GAN [address] [facility] [place] Phys: [place] [address] : 1970 Age: 50 SEX:F Exam Date: 08/12/21 Status: REG CLI Acct: [id number] Loc: [facility] Pt Unit #: [id number] Report #: [id number] CC: Joanna Sainz MD CAT SCAN REPORT Order # Category/Exam [id number] CT/CT Chest Abd Pelvis W Con ([id number]): . Results EXAM: CT chest, abdomen, and pelvis with IV contrast: HISTORY: Breast cancer with lung and bone metastases. COMPARISON: 04/23/2021 FINDINGS: CT THORAX: Lungs: Respiratory motion bilaterally limiting evaluation. Scattered areas of atelectasis greater in the lung bases. Persistent described pulmonary nodules do appear decreased in size allowing for respiratory motion. Pulmonary nodule in the medial right upper lobe previously measured 5 mm and ismuch less distinct on this examination. Left upper lobe pulmonary nodule is well appreciated some which could be related to respiratory motion. Pulmonary nodule in the anterior right upper lobe previously measured 5 mm x 4 mm and now measures approximately 6 mm x 2 mm. Right middle lobe pulmonary nodule previously measured 5 mm and is overall similar in size. No new discrete pulmonary nodule ormass is seen in the lungs bilaterally. Pleura: No pleural effusion. Lymph nodes: No enlarged lymph nodes seen by CT size criteria. Mediastinum: Right subclavian Mediport catheter remainsin place. Chest wall: Evidence of bilateral mastectomy with bilateral tissue implants present. Postoperative changes right axilla again present. CT ABDOMEN AND PELVIS: Liver: No focal hepatic lesions seen. Gallbladder: Normal in appearance. Again noted is mild intrahepatic biliary ductal dilatation not significantly change from prior study. Pancreas: Within normal limits. Spleen: Within normal limits. Adrenal glands: Within normal limits. Kidneys: Within normal limits. Urinary Bladder: The urinary bladder is unremarkable. Reproductive organs: Hysterectomy. Vessels:Minimal vascular calcifications nor mal caliber abdominal aorta. Bowel: Normal in caliber. Adenopathy:No enlarged lymph nodes seen within the abdomen or pelvis by CT size criteria. Peritoneum: No free fluid or fluid collection is seen. No free intraperitoneal gas is identified. Abdominal wall: Stable mild inflammatory stranding anteriorto the right iliac bone and right hip. Skeleton to represent posttreatment changes in this region. Osseous structures: Multifocal metastatic lesions seen throughout the thoracic spine including sacrum,right scapula, manubrium, and each iliac bone with involvement of a large portion of the pelvis similar to prior study. There is sclerosis and slight lucency involving the superior aspect of the right femoral head unchanged when compared to prior exam. This may also potentially represent metastatic disease. Prominent irregularity of the cortex and absence of portions of the cortex involving the left iliac bone with appears to be remote pathological fracture involving the left superior pubic ramus. IM PRESSION: 1. Scattered bilateral pulmonary nodules less conspicuous when compared to prior study. 2.Stable multifocal sclerotic metastatic lesions similar to prior study. Reported By: Nickolas Gonzales MD Electronically Signed Date/Ti me: 08/12/21 1406 Technologist: PORSCHE Dictated Date/Time: 08/12/21 1340 Transcribed Date/Time:CT Chest Abd Pelvis W Con Name: NATALIE COSTA : 1970 [facility] Pt Name: NATALIE COSTACIA [address] [facility] [place] Phys: Joanna Sainz MD [place], [id number] : 1970 Age: 50 SEX:F Exam Date: 04/23/21 Status: REG CLI Acct: [id number] Loc: [facility] Pt Unit #: [id number] Report #: [id number] CC: Joanna Sainz MD CAT SCAN REPORT Order # Category/Exam [id number] CT/CT Chest Abd Pelvis W Con ([id number]): . Results EXAM: CT chest, abdomen, and pelvis with IV contrast: HISTORY: Malignant neoplasm of breast, unspecified site. Secondary malignant neoplasm of bone. Nausea and vomiting. COMPARISON: 01/14/2021 FINDINGS: CT THORAX: Lungs:Again noted are scattered pulmonary nodules within the right upper, middle, and lower lobes with pulmonary nodules measuring 4 and 5 mm in maximal dimension. A small pulmonary nodule in the left upperlobe measures 5 mm. Pulmonary nodules in the upper lobes and right middle lobe on prior examination measured 6 mm in maximal dimension. No new pulmonary nodule is seen within the lungs bilaterally. Sca ttered areas of atelectasis are present within the lungs bilaterally. Pleura: No pleural effusion. Lymph nodes: No lymphadenopathy. Mediastinum: Right subclavian Mediport catheter again noted in place.Minimal vascular calcifications in the aortic arch. Chest wall: Bilateral breast implants again seen. CT ABDOMEN AND PELVIS: Liver: No focal hepatic lesion. Gallbladder: Normal in appearance. Stable mild intrahepatic biliary ductal dilatation present. Pancreas: Within normal limits. Spleen: Within normal limits. Adrenal glands: Within normal limits. Kidneys: Tiny possibly 3 mm nonobstructing bilateral renal calculi midportion of each kidney with single calculus on the right and 2 calculi on the left. Mild nonspecific right hydronephrosis present. No ureteral calculus seen. Urinary Bladder: The urinary bladder is unremarkable. Reproductive organs: Evidence of hysterectomy. Bowel: Again noted is circumferential wall thickening involving the terminal ileum with adjacent minimal inflammatory stranding present. This is unchanged compared to prior study. Remaining loops of small bowel are normal in caliber. Adenopathy:There is a mildly prominent 6 mm short axis dimension lymph node adjacent to the thickened ileum also present on prior study. No additional enlarged lymph nodes are seen in the abdomenor pelvis by CT size criteria. Peritoneum: Again noted is presacral inflammatory stranding and minimal edema/fluid. Abdominal wall: Mild subcutaneous edema involving the most proximal visualized right lower extremity with involvement of the anterior right lower pelvis in the right inguinal region overall similar to prior exam with diminished attenuation of the right pelvic and thigh musculature on the right compared to left which is also a stable finding. Findings could potentially be related to venous insufficiency although definitive filling defect within the limited visualized veins in this regionare not appreciated. Prior radiation therapy is a differential consideration. Clinical correlation recommended. Osseous structures: Multiple scattered osseous metastatic lesions involving the thoracicand lumbarvertebral bodies, manubrium, and in the pelvis bilaterally with more extensive involvementinvolving the right iliac bone. Sclerotic metastatic lesion seen in the anterior lateral sixth ribs bilaterally and the anterior and anterolateral left third rib as well as in the right scapula which were also present on prior exam. Lytic destructive lesion involving the left iliac bone is again present. A more discrete soft tissue mass was associated with this lesion on the prior examination and is less prominent on the current study. Sclerotic metastatic lesions within the sacrum again present. Nodefinite new metastatic lesion appreciated. IMPRESSION: 1. Bilateral pulmonary nodules slightly smaller in size. No new pulmonary nodule seen. 2. Extensive osseous metastatic disease without obvious interval progression. 3. Stable circumferential wall thickening involving the terminal ileum with adjacent mild inflammatory changes and adjacent prominent lymph node. In addition, there is stable presacral inflammatory stranding/edema. 4. Prominent subcutaneous edema right anterolateral pelvis, right inguinal region and extending into the visualized right proximal thigh with mild asymmetric diminished attenuation of the proximal thigh and pelvic musculature on the right compared to the left with mild edema in this region. These findings are unchanged compared to prior study as well as study on 09/29/2020. No obvious filling defect is seen within the venous structures; although, venous insufficiency is a possibility. Priorradiation therapy in this region is also a possibility. Clinical correlation recommended. Lower extremity venous Doppler could be performed if there is concern for DVT. 5. Nonobstructing bilateral renal calculi with mild right hydronephrosis of uncertain etiology. Reported By: Nickolas Gonzales MD ElectronicallySigned Date/Time: 04/23/21 1445 Technologist: DARIO Dictated Date/Time: 04/23/21 142 Transcribed Date/Time:CT Chest Abd Pelvis W Con Name: NATALIE COSTA : 1970 Sex: [facility] Pt Name: NATALIE COSTA [address] [facility] [place] Phys: [place] [address] : 1970 Age: 50 SEX:F Exam Date: 01/14/21 Status: REG CLI Acct: [id number] Loc: [facility] Pt Unit #: [id number] Report #: [id number] CC: Joanna Sainz MD CAT SCAN REPORT Order # Category/Exam [id number] CT/CT Chest Abd Pelvis W Con ([id number]): . Results EXAM: CT chest, abdomen, and pelvis with IV contrast: HISTORY: Malignant neoplasm breast, unspecified site. History of right mastectomy. Nausea and vomiting COMPARISON: 09/29/2020 FINDINGS: CT THORAX: Lungs: There is atelectasis present at each lung base with stable linear scarring in the left lowerlobe. Scattered pulmonary nodules are again seen within the lungs bilaterally. Nodules are as follows: Pulmonary nodule medial aspect right upper lobe previously measured 8 mm now measuring 5 mm. Right upper lobe pulmonary nodule located more inferiorly and anteriorly previously measured 8 mm and now measures 6 mm. Right middle lobe pulmonary nodule previously measured 8 mm and now measures 6 mm. Left upper lobe pulmonary nodule previously measured 6 mm and again measures 6 mm. Left upper lobe pulmonary nodule located more inferiorly previously measured 5 mm and is not visualized on current study. Pulmonary nodule left infrahilar region previously measured 7 mm and now measures 6 mm. Stable tiny subcentimeter pleural-based nodule right lung base. No new pulmonary nodule seen in the lungs bilaterally. Pleura: No pleural effusion. Lymph nodes: No enlarged lymph nodes are seen by CT size criteria. Mediastinum: Right-sided Mediport catheter remains in place. Vascular calcifications are seen in the aortic arch. Chest wall: B ilateral breast prostheses again seen. Postoperative changes right axilla again seen. CT ABDOMEN ANDPELVIS: Liver: Minimal intrahepatic biliary duct dilatation predominant centrally and similar to prior study. Common duct not dilated. Liver otherwise demonstrates a normal CT appearance and no focal hepatic lesion is appreciated. Gallbladder: Within normal limits. Pancreas: Within normal limits. Spleen: Within normal limits. Adrenal glands: Within normal limits. Kidneys: Within normal limits. Urinary Bladder: Incompletely distended. Reproductive organs: Evidence of hysterectomy. Bowel: Again notedis circumferential wall thickening involving the terminal ileum. Minimal inflammatory stranding is again seen in the right lower quadrant remaining loops of small bowel a normal appearance without dilatation or obvious wall thickening. Adenopathy:No lymphadenopathy within the abdomen or pelvis. Peritoneum: Minimal stranding in the lower pelvis predominantly in a presacral location similar to prior exam as well as study on 02/08/2020. There are small amount of free fluid on study in 2019 which is notidentified on this exam. Abdominal wall: There is inflammatory stranding again seen within the rightinguinal region and extending into the proximal right thigh which is overall similar to most recent exam. Exact etiologyis uncertain Osseous structures: Mixed lytic and sclerotic lesion involving the superior aspect right glenoid has increased in size previously measuring 0.9 cm and now measures 2 cm.The mixed lytic and sclerotic metastatic lesion in the manubrium has increased in size and involves the entire manubrium on the current exam. Mixed lytic and sclerotic lesion in the most anterior right sixth rib is again present but more conspicuous on the current study compared to prior exam. There are sclerotic metastatic lesions involving the T2, T4, T5, T10, T11, L2, and L4 vertebral bodies is well as the S1 vertebral body. Lesion in the T4 vertebral body has developed in the interim. The degree of sclerosis involving the T11 vertebral body has increased with sclerosis involving almost the entire vertebral body with associated lysis of the superior and inferior endplates of theT11 vertebral body. Sclerotic metastatic lesions in the L4 and S1 vertebral bodies have increased in size. There is a mixed lytic and sclerotic lesion involving the majority of the right iliac bone including the acetabulum and extending into the ischium and inferior pubic ramus with sclerosis again involving the right femoral head. Sclerosis and lucency in the right femoral head may be related tometastatic involvement. Osteonecrosis would be difficult to entirely exclude. The lytic lesion with soft tissue mass involving the superior aspect of the left iliac bone is present. Soft tissue component is smaller in size. Mixed lytic and sclerotic lesion involving the left acetabulum and extending into the left superiorpubic ramus as well as involving the left iliac bone is again present. IMPRESSION: 1. Bilateral pulmonary nodules majority of which are slightly smaller in size. 2. Extensive osseous metastatic disease with interval progression as described above. 3. Persistent nonspecific circumferential wall thickening involving the terminal ileum with mild inflammatory stranding in the right lower quadrant which is also a stable finding with stable minimal stranding/edema in a presacral location. 4. Prominent subcutaneous edema right anterolateral pelvis, right inguinal region and extending into the visualized most proximal thigh with suggestion of minimal overlying skin thickening. Mild subcutaneous edema is also seen posteriorly involving the right posterior gluteal and proximal right thigh regions again similar to prior study. Again, the exact etiology is uncertain. Reported By: Nickolas Gonzales MD Electronically Signed Date/Time: 01/14/21 1217 Technologist: SANDOVAL Dictated Date/Time: 01/14/21 1037 Transcribed Date/Time:XR Lumbar Punct Only W/Fluoro Name: NATALIE COSTA : 1970 Sex: [facility] Pt Name: NATALIE COSTA [address] [facility] [place] Phys: [place] [address] : 1970 Age: 49 SEX:F Exam Date: 10/27/20 Status: REG [facility] Acct: [id number] Loc: [facility] Pt Unit #: [id number] Report #: [id number] CC: Joanna Sainz MD IMAGING SERVICES REPORT Order # Category/Exam [id number] RAD/XR Lumbar Punct Only W/Fluoro ([id number]): . Results Lumbar puncture with fluoroscopic guidance: 10/27/2020 COMPARISON: None HISTORY: Metastatic breast cancer FINDINGS: Informed consent obtained prior to the procedure. Answerer imaging of the lumbar spine demonstrates scattered sclerotic foci consistent with osseous metastatic disease, as seen on prior CT examination, including the T11, L2, L4, and S1 vertebral bodies. The patient was placed on the fluoroscopic table in the oblique prone position and skin overlying the lumbar spine was prepped and draped in normal sterile fashion. The skin was anesthetized at the L3 level. With intermittent fluoroscopic guidance, a 22-gauge spinal needle is advanced into the thecal sac and removal of the stylet yields clear cerebrospinal fluid. Opening pressure is 11 mmHg. Approximately 10 cc of clear CSF was obtained and sent to the laboratory for assessment. Needle was removed. Patient tolerated the procedure well. IMPRESSION: Successful lumbar puncture with fluoroscopic guidance. No evidence of osseous metastatic disease. Reported By: Amando Weinstein MD Electronically Signed Date/Time: 10/27/20 1025 Technologist: Dictated Date/Time: 10/27/20 1021 Transcribed Date/Time:MRI [facility] : 1970 [facility] Pt Name: NATALIE COSTA [address] Phys: [place] [address] : 1970 Age: 49 SEX:F [phone] Exam Date: 10/21/20 Status: REG CLI Acct: [id number] Loc: MRI Pt Unit #: [id number] Report #: [id number] CC: Joanna Sainz MD MRI REPORT Order # Category/Exam [id number] MRI/MRI Brain W WO Con ([id number]): . Results Exam: Brain MRI with and without contrast HISTORY: Evaluate for intracranial versus meningeal metastases. COMPARISON: 09/10/2019 Correlation: Thoracic spine MRI 10/14/2020 FINDINGS: Gradient echo sequence: No hemorrhage Calvarium: Multiple enhancing lesions within the calvarium, compatible with calvarial metastases. Scale Mechanic metastatic deposit in the left calvarium measures 2.0 x 0.9 cm Midline brain parenchyma: Unremarkable Cerebrum:No parenchymal mass, mass effect or midline shift. Brain volume is age-appropriate. Cortical florez-white matter differentiation is preserved. No significant T2 or FLAIR white matter hyperintensities. Ventricles: No evidence of hydrocephalus. Sinuses and mastoid air cells: Adequate aeration Diffusion: Central arterial flow is maintained. Absent restricted diffusion. Postcontrast images:No pathologic enhancement the brain parenchyma. However, there is pachymeningeal enhancement along the left parietal dural adjacent to the a forementioned calvarial metastatic lesion. Possibility of dural extension of calvarium metastases is suspected. IMPRESSION: 1. No pathologic enhancementthe brain parenchyma 2. Multifocal calvarial metastatic lesions. There is a calvarial metastatic deposit in the left parietal bone with erosion of the inner table and enhancement of the underlying dura. Direct extension of the metastatic lesion into the dura cannot be excluded. Reported By: Srikanth Mesa MD Electronically Signed Date/Time: 10/21/20 1145 Technologist: [email or web address].[email or web address] Dictated Date/Time: 10/21/20 1139 Transcribed Date/Time:MRI Thoracic Spine W WO ConName: NATALIE COSTA : 1970 Sex: [facility] Pt Name: NATALIE COSTA [address] [facility] [place] Phys: Joanna Sainz MD [place], [id number] : 1970 Age: 49 SEX:F Exam Date: 10/14/20 Status: REG CLI Acct: [id number] Loc: [facility] Pt Unit #: [id number] Report #: [id number] CC: Joanna Sainz MD MRI REPORT Order # Category/Exam [id number] MRI/MRI Thoracic Spine W WO Con ([id number]): . Results Exam: Thoracic spine MRI with and without contrast HISTORY: Metastatic breast cancer. Evaluate for bone metastases. COMPARISON: None Correlation: Nuclear medicine bone scan 04/22/2020 and chest abdomen pelvis CT 09/29/2020 FINDINGS: There is T1 marrow signal hypointensity with associated T2, STIR hyperintensity and enhancement involving the T2, T5, T10, T11 and L2 vertebral bodies. There is no associated pathologic fracture. Abnormal signal intensity involves left pedicle and posterior elements at T6 and T11. Sclerotic components are redemonstrated. There does appear to be enhancement along the anterior posterior margin of the distal thoracic cord including the cauda equina and conus medullaris. Findings are worrisomefor possible drop metastases. Further evaluation with a pre and postcontrast brain MRI may be beneficial. The actual cord has appropriate size and signal intensity. No cord malacia or cord is patent. Noabnormal T2 hyperintensity in the thoracic cord. Conus medullaris terminates at the T12-L1 disc space. Appropriate signal intensity visualized mediastinum. There are multiple nodules in the lung parenchyma, worrisome for metastases. Visualized solid organs, paraspinal and retroperitoneal structures are unremarkable Throughout the thoracic spine, central spinal canal and neural foramina are patent. IMPRESSION: 1. Multifocal osseous metastases. 2. Multiple lung parenchymal nodules compatible with metastases 3. Enhancement of the distal thoracic cord including the conus medullaris. Possible spread of tumor/drop metastases cannot be excluded. Consider brain MRI. Reported By: Srikanth Mesa ElectronicallySigned: 10/14/2020 12:25 PM Reported By: Srikanth Mesa MD Electronically Signed Date/Time: 10/14/20 1225Technologist: RP Dictated Date/Time: 10/14/20 1216 Transcribed Date/Time:CT Chest Abd Pelvis W Con Name: NATALIE COSTA : 1970 [facility] Pt Name: NATALIE COSTA [address] [facility] [place] Phys: [place] [address] : 1970 Age: 49 SEX:F Exam Date: 09/29/20 Status: REG CLI Acct: [id number] Loc: [facility] Pt Unit #: [id number] Report #: [id number] CC: Joanna Sainz MD CAT SCAN REPORT Order# Category/Exam [id number] CT/CT Chest Abd Pelvis W Con ([id number]): . Results CT of the chest, abdomen, and pelvis: 09/29/2020 COMPARISON: 02/08/2020 HISTORY: Metastatic breast cancer TECHNIQUE: AxialCT imaging at 5 mm intervals from the thoracic inlet through the pubic symphysis with IV and oral contrast. Coronal and sagittal reformatted imaging obtained. FINDINGS: There is a right Port-A-Cath present. Bilateral breast implants are noted. There are postoperative clips in the right axillary region. No axillary, hilar, or mediastinal lymphadenopathy is noted. There is no pleural, pericardial, or me diastinal fluid. No pneumothorax. No endobronchial lesion. There is a new left lower lobe nodule on image 38 measuring 7 mm. There is a new left upper lobe nodule on axial image 21 measuring 6 mm. There is a right middle lobe nodule on image 35 measuring 8 mm, increased from 2-3 mm on the prior exam. There is a new medial inferior posterior right upper lobe nodule measuring 8 mm on axial image 21. There is an additional inferior anterior right upper lobe nodule on axial image 29 measuring 8 mm, increased from 2-3 mm on the prior exam. Findings areconsistent with bilateral pulmonary parenchymal metastatic disease. No free intraperitoneal air or fluid noted. The liver, gallbladder, and spleen appear unremarkable. The pancreas, adrenal glands, and kidneys appear unremarkable. The uterus appears surgically absent. There is no evidence for bowel obstruction. There is a nonspecific circumferential area of wall thickening of the terminal ileum, best seen on axial image 95, improved when compared to prior imaging. There are nonspecific prominent nodes in the mesentery of the right lower quadrant, similar when compared to prior imaging. No retroperitoneal adenopathy is noted. There is diffuse stranding of the subcutaneous fat with skin thickening in the right inguinal region extending lateral to and posterior to the right buttock musculature and extending into the imaged right thigh, new when compared to prior imaging. This suggests nonspecific edema. There is a sclerotic lesion within the S1 vertebral body as before. L2 and L4 sclerotic lesions on the basis of osseous metastatic disease again noted as well. There is a prominent lytic lesion with a soft tissue component measuring 3.6 x 3.3 cm within the medial superior aspect of the left iliac bone approaching the superior aspect of the left sacroiliac joint, progressed significantly since the prior examination at which time this lesion was scleroticin nature. There is sclerotic metastatic disease extending throughout the tissue a.m., acetabulum, and iliac bone on the right, similar when compared to the prior exam. There is new abnormal sclerosis involving the femoral head which could signify avascular necrosis with mild impaction fracture versus femoral head metastatic disease. Previously noted sclerotic lesion within the anterior aspect of the right acetabulum/superior pubic ramus has progressed with new lytic lesion and associated softtissue component measuring 2.4 cm within the anterior aspect of the acetabulum with probable subtle pathologic fracture. Sclerotic lesion again noted within the inferior pubic ramus the left. There is a sclerotic lesion at the T11 vertebral body with surrounding lytic change extending into the left ped icle, progressed since the prior examination, with probable small volume epidural extension, not well appreciated on this exam. There is a lytic lesion within the inferior aspect ofT10, stable. There is a sclerotic lesion involving the majority of the T5 vertebral body and there is a sclerotic lesion within the T8 to vertebral body, stable. There is progression of osseous metastatic disease within the manubrium. IMPRESSION: Progression of metastatic disease with multiple new and enlarging pulmonary nodules. Extensive severe osseous metastatic disease with interval progression. Please see above discussion.There may be epidural tumor at T11 which could be better evaluated with MRI as clinically warranted. Nonspecific wall thickening of the terminal ileum, improved when compared to the prior exam. There is prominent edema involving the subcutaneous fat with skin thickening in the right inguinal region and adjacent to the right buttock musculature and imaged right thigh. This could be the result ofedema associated with nonvisualized DVT or could be a soft tissue response to extensive osseous metastatic disease within the right hemipelvis. Doppler ultrasound of the lower extremities suggested. LING Sainz made aware via [employer] connect 11:40 AM 09/29/2020 Reported By: Amando galindo Signed: 09/29/2020 11:41 AM Reported By: Amando Weinstein MD Electronically Signed Date/Time: 09/29/20 1141 Technologist: PORSCHE Dictated Date/Time: 09/29/20 1101 Transcribed Date/Time:NM Bone Scan STANDARD [facility]: NATALIE COSTACIA : 1970 [facility] Pt Name: NATALIE COSTA [address] Phys: [place] [address] : 1970 Age: 49 SEX:F [phone] Exam Date: 07/08/20 Status: REG CLI Acct: [id number] Loc: [place] Pt Unit #: [id number] Report #: [id number] CC: [facility] Order # Category/Exam [id number] NM/NM Bone Scan STANDARD ([id number]): . Results Whole body bone scan: 07/08/2020 COMPARISON: 04/22/2020 HISTORY: Breast cancer with osseous metastatic disease TECHNIQUE: Anterior and posterior whole-body imaging obtained following intravenous administration of 31.8 mCi technetium 99m labeled MDP FINDINGS: There is physiologic activity within the kidneys and the urinary bladder. There are foci of radiotracer activity overlying the left aspect of the calvarium suggesting stableosseous calvarial metastatic disease. There is significant increased radiotracer activity again seen within the right hemipelvis in the region of the acetabulum and ischium, also suggesting stable osseous metastatic disease. Stable lesions overlie bilateral sacroiliac join ts/sacral ala. There are foci of radiotracer activity overlying the mid thoracic spine, the lower thoracic spine, the mid lumbar spine, and the lower lumbar spine suggesting stable multifocal osseous metastatic disease. Foci of radiotracer activity overlie multiple anterior left ribs suggesting stable metastatic disease. Stable metastatic lesion suspected within the manubrium as well. Impression: Evidence of multifocal osseous metastatic disease. No definite interval change. Reported By: Amando Weinstein MD Electronically Signed Date/Time: 07/08/20 1311 Technologist: ELIJAH Dictated Date/Time: 07/08/20 1307 Transcribed Date/Time:XR Femur Rt 2 View STANDARD [facility]: NATALIE COSTA : 1970 Sex: F PtName: NATALIE COSTA [address] [facility]. Phys: [place] [address] : 1970 Age: 49 SEX:F [phone] Exam Date: 04/23/20 Status: DEP CLI Acct: [id number] Loc: [facility] Pt Unit #: [id number] Report #: [id number] CC: Joanna Sainz MD IMAGING SERVICES REPORT Order # Category/Exam [id number] RAD/XR Femur Rt 2 View STANDARD ([id number]): . Results Exam:Right femur 2 views HISTORY:Pain. Cancer. Evaluate for pathologic fracture. COMPARISON: None FINDINGS: Extensive sclerosis alongthe right hemipelvis and right acetabulum. There is mottled appearance of the distal femur. No fracture, cortical irregularity or periosteal reaction. Additional sclerotic focus involving the left superior pubic ramus. IMPRESSION: Extensive sclerosis due to multifocal osseous metastases, without associated pathologicfracture. ReportedBy: Srikanth Mesa MD Electronically Signed Date/Time: 04/23/20 1602 Technologist: Krystian Date/Time: 04/23/20 1559 Transcribed Date/Time:WA Bone Scan STANDARD [facility]: NATALIE COSTA ELVIA : 1970 [facility] Pt Name: NATALIE COSTACIA [address] Phys: [place] [address] : 1970 Age: 49 SEX:F [phone] Exam Date: 04/22/20 Status:REG CLI Acct: [id number] Loc: [facility] Pt Unit #: [id number] Report #: [id number] CC[facility] Order # Category/Exam [id number] NM/NM Bone Scan STANDARD ([id number]): . Results NUCLEAR MEDICINE WHOLE BODY BONE SCAN: COMPARISON: 01/23/2020. CORRELATION: Chest, abdomen, and pelvic CT 02/08/2020. HISTORY: Osseous metastases. Breast cancer. TECHNIQUE: Patient was administered 29.10 mCi of technetium 99m MDP intravenously. After appropriate delay, whole body imaging is performed. FINDINGS: Persistent radiotracer localization involving the manubrium of the sternum, multiple left ribs, T7 vertebral body, T12 vertebral body and the L3 and L4 vertebral bodies. Additionally, there is persistent uptake in the sacrum, left and right ischium as well as the right iliac wing, righthemipelvis including the acetabulum, inferior pubic ramus, superior pubic ramus and left superior pubic ramus. The overall degree and distribution has not significant changed since the previous exam. There are no new areas of osseous metastases. Stable incidental uptake involving the calvarium. IMPRESSION: Essentially stable multifocal osseous metastases. If there is concern for possible right hip/pel vicpathologic fracture, consider radiographs. Transcribed Date/Time: 04/22/2020 2:30 PM Reported By: Srikanth Mesa MD Electronically Signed Date/Time: 04/22/20 1431 Technologist: ELIJAH Dictated Date/Time: 04/22/20 1406 Transcribed Date/Time: CT Chest Abd Pelvis W Con [facility] BRYANName: NATALIE COSTA : 1970 [facility] Pt Name: NATALIE COSTA [address] [place] [address] Phys: [place] [address] : 1970 Age: 49 SEX:F [phone] Exam Date: 02/08/20 Status: REG CLI Acct: [id number] [facility] #: [id number] Report #: [id number] CC: Joanna Sainz MD CAT SCAN REPORT Order # Category/Exam [id number] CT/CT Chest Abd Pelvis W Con ([id number]): . Results CT Chest Abd Pelvis W Con History: Breast cancer Comparison: CT chest abdomen pelvis September 09, 2019 Findings: Small 3 mm nodule posterior segment right lower lobe axial image 31. Mild atelectasis left lung base.No pneumothorax. Millimeter right middle lobe nodule axial image 30 is similar. Small peripheral 3 mm nodule right middle lobe axial image 28 is also similar. Thyroid is unremarkable. No mediastinal agnieszka nopathy. No internal mammary or axillary adenopathy. The liver, gallbladder, spleen, pancreas, adrenal glands are all unremarkable. No hydronephrosis. Punctate nonobstructing right interpolar and inferior pole 2 mm calculi are present. Punctate 2 mm left interpolar renal calculus. Aortoiliac contour is nonaneurysmal. Market dilatation of the distal 8.5 cm ilium with mucosal hyperenhancement and adjacent mesenteric inflammation. Small volume free fluid in the pelvis. Likely posterior intramural abscess formation without drainable collection. No evidence for bowel obstruction. The distal ileum has cephalized material is dilated to 2.8 cm. Aortoiliac contour is nonaneurysmal. No retroperitoneal periaortic adenopathy. New sclerotic metastatic disease involving the sacrum at S1 as well as the lumbar spine at L4 and L2 with L1. Thoracic spine involvement is also progressed with large sclerotic focus at T11. Smaller metastatic foci of T10 and T12. Mixed lytic and sclerotic right acetabular metastasis now has a transversely oriented acetabular pathologic fracture. The right acetabular involvement has progressed to involve the right iliac wing. New left iliac metastasis. New left superior and inferiorpubic rami metastasis. Progressive manubrial metastatic disease. Impression: 1. Progressive osseous metastatic disease with pathologic right acetabular transverse fracture. 2. Small pulmonary nodules, majority of which are similar to the comparison examination with a possible new right lower lobe 3 mmnodule. Close attention on follow-up imaging recommended. 3. Nonobstructing bilateral renal calculi.4. Severe terminal ileitis with likely intramural developing abscess/phlegmon with poor posterior wall enhancement. Patient is at risk for macroperforation and abscess formation. The appendix is not well visualized and likely contained within the area of inflammation. Code: CR Reported By: FRANCISCO ACOSTA Electronically Signed Date/Time: 02/08/20 1459 Technologist: LAURA Dictated Date/Time: 02/08/20 1416 Transcribed Date/Time:NM Bone Scan STANDARD [facility] BRYNicholsme: NATALIE COSTA : 1970 [facility] Pt Name: NATALIE COSTA [address] Phys: [place] [address] : 1970 Age: 49 SEX:F [phone] Exam Date: 01/23/20 Status:REG CLI Acct: [id number] Loc: [place] Pt Unit #: [id number] Report #: [id number] CC: Joanna Sainz MD NUCLEAR MEDICINE REPORT Order # Category/Exam [id number] NM/NM Bone Scan STANDARD ([id number]): . Results Radionucleotide bone scan HISTORY: Breast cancer with bone metastases. Restaging. FINDINGS: Intense areas of radiotracer uptake involving the anterior aspect of left ribs 4 and 7 similar in appearance to prior study. Area of increased uptake at the left maxilla more intense thanon the prior study. Uptake involving the T5 vertebral body on the posterior view slightly more intensethan on the previous exam. Uptake at the T2 level has increased slightly. Uptake involving the right side of the L2 vertebral body is more intense than on the prior study. Intense uptake involving the right pelvis is moreintense. There are now subtle foci of increased radiotracer uptake involving the left skull vertex and the right supratemporal level. Degenerative-type uptake involves the shoulders, knees, and feet. IMPRESSION : New areas of uptake involving the skull are worrisome for new metastatic foci. The lesionat the left maxilla could be dental pathology in origin or an area of newly visible metastasis. Slightly more intense uptake of several lesions may be related to reaction from interval treatment. Reported By: Moshe Munoz MD Electronically Signed Date/Time: 01/23/20 1433 Technologist: NASIR Dictated Date/Time: 01/23/20 1423Transcribed Date/Time:CT Pelvis [facility] Pt Name: NATALIE COSTA [employer] Phys: [place] [address] : 1970 Age: 48 SEX:F [phone] Exam Date: 09/25/19 Status: REG [facility] Acct: [id number] Loc: CT Pt Unit #: [id number] Report #: [id number] CC: Joanna Sainz MD CAT SCAN REPORT Order # Category/Exam [id number] CT/CT Pelvis WO Con ([id number]): . Results Exam: Pelvic CT without contrast HISTORY: Breast cancer with possible osseous metastases COMPARISON: 09/09/2019 FINDINGS: Successful CT-guided biopsy of a destructive focus in the right ischium with adjacent abnormalsoft tissue. Total of 4 18-gauge core biopsy samples were obtained. Atypical cells are present TECHNIQUE: Consent obtained performing CT- guided biopsy. Patient was placed in a prone position on the CT gantry. Lesion was identified. 1% lidocaine, buffered with sodium bicarbonate was used for local anesthesia. Under CT guidance, a 17-gauge metallic trocar was advanced such that it was medial to the ischium. Sample was obtained. Atypical cells were not present. Therefore, the needle was redirected in fabian lateral fashion. 2 additional samples were obtained and there was atypical cells present. Needle was advanced such that it was adjacent to the ischium and a final sample was obtained and placed directly in formalin. Patient tolerated the procedure well. No immediate or postprocedure complicationsIMPRESSION: Successful CT-guided biopsy. Atypical cells are present. Final pathologic diagnosis is pending Transcribed Date/Time: 09/25/2019 1:14 PM Reported By: Srikanht Mesa MD Electronically Signed Date/Time: 09/25/19 1315 Technologist:MANDO Dictated Date/Time: 09/25/19 1300 Transcribed Date/Time:CT Pelvis WO [facility] Pt Name: NATALIE COSTA [employer] Phys: [place] [address] : 1970 Age: 48 SEX:F [phone] Exam Date: 09/25/19 Status: [facility] Acct: [id number] Loc: CT Pt Unit #: [id number] Report #: [id number] CC: Joanna Sainz MD CAT SCAN REPORT Order # Category/Exam [id number] CT/CT Pelvis WO Con ([id number]): . Results ADDENDUM ADDENDUM #1 Addendum: Conscious sedation Patient was administered 50 mcg of fentanyl intravenously and 1 mg of Versed intravenously for conscious sedation. ORIGINAL REPORT Exam: Pelvic CT without contrast HISTORY: Breast cancer with possible osseous metastases COMPARISON: 09/09/2019 FINDINGS: Successful CT-guided biopsy of a destructive focus in the right ischium with adjacent abnormal soft tissue. Total of 4 18-gauge core biopsy samples were obtained. Atypical cells are present TECHNIQUE: Consent obtained performing CT-guided biopsy. Patient was placed in a prone position on the CT gantry. Lesion was identified. 1% lidocaine, buffered with sodium bicarbonate was used for local anesthesia. Under CTguidance, a 17-gauge metallic trocar was advanced such that it was medial to the ischium. Sample wasobtained. Atypical cells were not present. Therefore, the needle was redirected in a more lateral fashion. 2 additional samples were obtained and there was atypical cells present. Needle was advanced such that it was adjacent to the ischium and a final sample was obtained and placed directly in formalin. Patient tolerated the procedure well. No immediate or postprocedure complications IMPRESSION: Successful CT-guided biopsy. Atypical cells are present. Final pathologic diagnosis is pending Transcribed Date/Time: 09/25/2019 1:14 PM Adde ndum Dictated By: Srikanth Mesa MD Addendum Electronically Signed Date/Time: 09/25/191418 Technologist: MANDO Dictated Date/Time: 09/25/19 Transcribed Date/Time: / Tobacco Flavorer: DAVI CC: Joanna Sainz MD Exam: Pelvic CT without contrast HISTORY: Breast cancer with possible osseous met astases COMPARISON: 09/09/2019 FINDINGS: Successful CT-guided biopsy of a destructive focus in the right ischium with adjacent abnormal soft tissue. Total of 4 18-gauge core biopsy samples were obtained. Atypical cells are present TECHNIQUE: Consent obtained performing CT-guided biopsy. Patient was placed in a prone position on the CT gantry. Lesion was identified. 1% lidocaine, buffered with sodium bicarbonate was used for local anesthesia. Under CT guidance, a 17- gauge metallic trocar was advanced such that it was medial to the ischium. Sample was obtained. Atypical cells were not present. Therefore, the needle was redirected in a more lateral fashion. 2 additional samples were obtained and therewas atypical cells present. Needle was advanced such that it was adjacent to the ischium and a finalsample was obtained and placed directly in formalin. Patient tolerated the procedure well. No immediate or postprocedure complications IMPRESSION: Successful CT-guided biopsy. Atypical cells are present. Final pathologic diagnosis is pending Transcribed Date/Time: 09/25/2019 1:14 PM Reported By: Srikanth Mesa MD Electronically Signed Date/Time: 09/25/19 1315 Technologist: MANDO Dictated Date/Time: 09/25/19 1300 Transcribed Date/Time: CT Guided Biopsy S/ICHI [facility] Pt Name: NATALIE COSTA [employer] Phys: Joanna Sainz MD [place] [address] : 1970 Age: 48 SEX:F [phone] Exam Date: 09/25/19 Status: [facility] Acct: [id number] Loc: CT Pt Unit #: [id number] Report #: [id number] CC: Joanna Sainz MD CAT SCAN REPORT Order # Category/Exam [id number] CT/CT Guided Biopsy S/I ([id number]): . Results Addendum:Conscious sedation Patient was administered 50 mcg of fentanyl intravenously and 1 mg of Versed intravenously for conscious sedation. Reported By: Srikanth Mesa by Srikanth Mesa. Exam: Pelvic CT without contrast HISTORY: Breast cancer with possible osseous metastases COMPARISON: 09/09/2019 FINDINGS: Successful CT-guided biopsy of adestructive focus in the right ischium with adjacent abnormal soft tissue. Total of 4 18- gauge core biopsy samples were obtained. Atypical cells are present TECHNIQUE: Consent obtained performing CT-guided biopsy. Patient was placed in a prone position on the CT gantry. Lesion was identified. 1% lidocaine, buffered with sodium bicarbonate was used for local anesthesia. Under CT guidance, a 17-gauge metallic trocar was advanced such that it was medial to the ischium. Sample was obtained. Atypical cells were not present. Therefore, the needle was redirected in a more lateral fashion. 2 additional samples were obtained and there was atypical cells present. Needle was advanced such that it was adjacent to the ischium and a final sample was obtained and placed directly in formalin. Patient tolerated the procedure well. No immediate or postprocedure complications IMPRESSION: Successful CT-guided biopsy. Atypical cells are present. Final pathologic diagnosis is pending Transcribed Date/Time: 09/28/20191:12 PM Reported By: Srikanth Mesa MD Electronically Signed Date/Time: 09/28/19 1330 Technologist: MANDO Dictated Date/Time: 09/28/19 1312 Transcribed Date/Time:[facility]: NATALIE COSTA [place] Phys: [place] [address] : 1970 Age: 48 SEX:F [phone] Exam Date: 09/11/19 Status: ADM IN Acct: [id number] Loc: ONC Pt Unit #: [id number] Report #: [id number] CC: Petey Lyles Mic hael W MD IMAGING SERVICES REPORT Order # Category/Exam [id number] RAD/XR Chest 1 View Portable ([id number]): . Results RADIOGRAPH CHEST 1 VIEW: Supine DATE: 09/11/2019 HISTORY: 48-year-old female statuspost MediPort placement FINDINGS: Nonspecific mildly increased attenuation at left lower lobe. Thereis no other region of airspace density or pulmonary edema. The lateral costophrenic angles are sharp. There is a right subclavian implantable vascular access port with distal tip near SVC/right atrial junction. Supine positioning makes this study insensitive for the detection of pneumothorax. IMPRESSION: 1. Right-sided implantable vascular access port. 2. Recommend upright chest radiograph to evaluate for pneumothorax. 3. Nonspecific mild left lower lobe pulmonary densities. Reported By: Douglas Durant MD Electronically Signed Date/Time: 09/11/19 1222 Technologist: AIDEE Dictated Date/Time: 09/11/19 1220 Transcribed Date/Time: [facility] Pt Name: NATALIE COSTA [employer] Phys: [place] [address] : 1970 Age: 48 SEX:F [phone] Exam Date: 09/11/19 Status: DIS IN Acct: [id number] Loc: ONC Pt Unit #: [id number] Report #: [id number] CC: Petey Lyles Michael W MD IMAGING SERVICES REPORT Order # Category/Exam [id number] RAD/XR Chest 1 View Portable ([id number]): . Results RADIOGRAPH CHEST 1 VIEW: Supine DATE: 09/11/2019 HISTORY: 48-year-old female statuspost MediPort placement FINDINGS: Nonspecific mildly increased attenuation at left lower lobe. Thereis no other region of airspace density or pulmonary edema. The lateral costophrenic angles are sharp. There is a right subclavian implantable vascular access port with distal tip near SVC/right atrial junction. Supine positioning makes this study insensitive for the detection of pneumothorax. IMPRESSION: 1. Right-sided implantable vascular access port. 2. Recommend upright chest radiograph to evaluate for pneumothorax. 3. Nonspecific mild left lower lobe pulmonary densities. Reported By: Douglas Durant MD Electronically Signed Date/Time: 09/11/19 1222 Technologist: AIDEE Dictated Date/Time: 09/11/19 1220 Transcribed Date/Time: MRI Brain W [facility] Pt Name: NATALIE COSTA ComVibe Phys: [place] [address] : 1970 Age: 48 SEX:F [phone] Exam Date: 09/10/19 [id number] Loc: ONC Pt Unit #: [id number] Report #: [id number] CC: Joanna Sainz MD MRI REPORT Order # Category/Exam [id number] MRI/MRI Brain W WO Con ([id number]): . Results MRI BRAIN WITH AND WITHOUT CONTRAST: DATE: 09/10/2019 HISTORY: 48-year-old female with breast cancer metastatic to bone. Evaluate for intracranial metastasis. TECHNIQUE: Multiplanar, multisequence MRI of the brain obtained pre and post IV injection of gadolinium based contrast agent. FINDINGS: The ventricles are normal in size and configuration. There is no midline shift or any other evidence of mass effect. There is no extra-axial fluid collection. There is no intra-axial signal abnormality, abnormal enhancement, mass, recent hemorrhage, or restricted diffusion. No evidence of brain metastasis. 1.0 x 0.7 x 0.7 cm enhancing intraosseous lesion left upper paramedian parietal bone. IMPRESSION: 1. At least one small osseous calvarial metastasis. 2. Intracranial contents, including brain, are normal. Reported By: Douglas Durant MD Electronically Signed Date/Time: 09/10/19 0954 Technologist: SANDRA Dictated Date/Time: 09/10/19 0946 Transcribed Date/Time:[facility] Name: NATALIE COSTA ComVibe Phys: Joanna Sainz MD [place] [address] : 1970 Age: 48 SEX:F [phone] Exam Date: 09/10/19 Status: ADM IN Acct: [id number] Loc: ONC Pt Unit #: [id number] Report #: [id number] CC: Petey Lyles Kumud MD NUCLEAR MEDICINE REPORT Order # Category/Exam [id number] NM/WA Bone Scan STANDARD ([id number]): .Results EXAM: WA Bone Scan STANDARD PROVIDED CLINICAL HISTORY: Breast cancer staging COMPARISON: CT chest, and, and pelvis on 09/09/2019 FINDINGS: There is intense uptake of radiotracer seen within the T5 vertebral body with an eccentrically located focus of increased uptake in the right aspect of the L2 vertebral body. Small focus of increased uptake of radiotracer is seen in the left iliac bone withmuch larger area of increased uptake of radiotracer are seen involving the right iliac bone including the acetabular region as well as involving the ischium and inferior pubic ramus. Abnormal focus of activity is seen in the left anterior third rib. These areas of abnormal uptake of radiotracer correspond to mixed lytic and sclerotic osseous lesions on recent CT scan examination. A focus of increaseduptake of radiotracer is seen in the left anterior sixth rib which corresponds to a fracture on CT examination which may represent a healing fracture versus pathological fracture. Expected activity is seen in the kidneys and urinary bladder. IMPRESSION: Osseous metastatic disease involving the T5 and L2 vertebral bodies, a few left-sided ribs, right hemipelvis and right iliac bone. Reported By: Nickolas Gonzales MD Electronically Signed Date/Time: 09/10/19 1522 Technologist: MARY Dictated Date/Time: 09/10/19 1511 Transcribed Date/Time: [facility] Pt Name: NATALIE COSTA OwingoFly Acquisio Phys: [place] [address] : 1970 Age: 48 SEX:F [phone] Exam Date: 09/10/19 Status: DIS IN Acct: [id number] Loc: ONC Pt Unit #: [id number] Report #: [id number] CC: Joanna Sainz MD MRI REPORT Order # Category/Exam [id number] MRI/MRI Brain W WO Con ([id number]): . Results MRI BRAIN WITH AND WITHOUT CONTRAST: DATE: 09/10/2019 HISTORY: 48-year-old female with breast cancer metastatic to bone. Evaluate for intracranial metastasis. TECHNIQUE: Multiplanar, multisequence MRI of the brain obtained pre and post IV injection of gadolinium based contrast agent. FINDINGS: The ventricles are normal in sizeand configuration. There is no midline shift or any other evidence of mass effect. There is no extra-axial fluid collection. There is no intra-axial signal abnormality, abnormal enhancement, mass, recent hemorrhage, or restricted diffusion. No evidence of brain metastasis. 1.0 x 0.7 x 0.7 cm enhancing intraosseous lesion left upper paramedian parietal bone. IMPRESSION: 1. At least one small osseous calvarial metastasis. 2. Intracranial contents, including brain, are normal. Reported By: Douglas Durant MD Electronically Signed Date/Time: 09/10/19 0954 Technologist: SANDRA Dictated Date/Time: 09/10/19 0946 Transcribed Date/Time:NM Bone Scan [facility] Pt Name: NATALIE COSTA ComVibe Phys: [place] [address] : 1970 Age: 48 SEX:F [phone] Exam Date: 09/10/19 Status: DIS IN Acct: [id number] Loc: ONC Pt Unit #: [id number] Report #: [id number] CC: Petey Lyles Kumud MD NUCLEAR MEDICINE REPORT Order # Category/Exam [id number] NM/NM Bone Scan STANDARD ([id number]): .Results EXAM: NM Bone Scan STANDARD PROVIDED CLINICAL HISTORY: Breast cancer staging COMPARISON: CTchest, and, and pelvis on 09/09/2019 FINDINGS: There is intense uptake of radiotracer seen within theT5 vertebral body with an eccentrically located focus of increased uptake in the right aspect of theL2 vertebral body. Small focus of increased uptake of radiotracer is seen in the left iliac bone with much larger area of increased uptake of radiotracer are seen involving the right iliac bone including the acetabular region as well as involving the ischium and inferior pubic ramus. Abnormal focus ofactivity is seen in the left anterior third rib. These areas of abnormal uptake of radiotracer correspond to mixed lytic and sclerotic osseous lesions on recent CT scan examination. A focus of increased uptake of radiotracer is seen in the left anterior sixth rib which corresponds to a fracture on CT examination which may represent a healing fracture versus pathological fracture. Expected activity isseen in the kidneys and urinary bladder. IMPRESSION: Osseous metastatic disease involving the T5 and L2 vertebral bodies, a few left-sided ribs, right hemipelvis and right iliac bone. Reported By: Nickolas Gonzales MD Electronically Signed Date/Time: 09/10/19 1522 Technologist: MARY Dictated Date/Time: 09/10/19 1511 Transcribed Date/Time:CT Chest Abd Pelvis W [facility] Pt Name: NATALIE COSTA ComVibe Phys: Joanna Sainz MD [place], [place] [address] : 1970 Age: 48 SEX:F [phone] Exam Date: 09/09/19 Status: ADM IN Acct: [id number] Loc: ONC Pt Unit #: [id number] Report #: [id number] CC: Petey Lyles Kumud MD CAT SCAN REPORT Order # Category/Exam [id number] CT/CT Chest Abd Pelvis W Con ([id number]): . Results CT OF THE CHEST, ABDOMEN AND PELVIS WITH IV CONTRAST INDICATION: History of breast cancer COMPARISON: CT the pelvis dated September 08, 2019 FINDINGS: CHEST: Lungs: There is a 3 mm pulmonary nodule with in the anterior right upper lobe on image 27 of series 4. There is a 3 mm and 2 mm right middle lobepulmonary nodule on image 33 of series 4. There is subsegmental volume loss within both lower lobes.Pleural space: No effusion. Mediastinum: No pathologically enlarged lymph nodes are evident. Axilla: Surgical clips are seen within the right axilla. ABDOMEN: Liver: No focal lesion. Gallbladder: Normal appearing. Pancreas: Normal. Adrenal glands: Normal. Spleen: Normal. Kidneys and ureters: There leroy 2 mm nonobstructing calculus within the left mid kidney. The right kidney is normal-appearing. Vasculature: Normal. Lymph nodes:No lymphadenopathy. Free fluid in abdomen:No free fluid is evident. PELVIS: Small and large bowel: Normal Appendix:Normal Bladder: Normal. Rectal and perirectal soft tissues:Normal. Reproductive structures: Surgically absent Free fluid in pelvis: No free fluid is evident. Lymphadenopathy pelvis: No lymphadenopathy is evident. Osseous structures: The mixed lytic and osseous sclerotic lesion involving the right acetabulum and right ischial tuberosity similar to the most recent comparison. There is an additional osteolytic lesion involving the right aspect of the L2 vertebra on image 70 of the coronal series measuring 1.4 cm. There is a 1.9 cm osteolytic lesion involving the left aspect of the T9 vertebral body with mild inferior and superior branch endplate compression fracture. Soft tissues:There is persistent reticulation of the subcutaneous fat overlying the right gluteal region. IMPRESSION: 1. 3 small pulmonary nodules within the right lung are nonspecific and maybe related to underlying granulomatous disease; however, early metastatic disease is not excluded. These lesions are below PET resolution threshold. Short-term CT follow-up in 6-8 weeks is recommended.2. Osseous metastatic disease with mild superior and inferior endplate pathologic compression fracture of T9. There is osteolytic lesion of L2. There is a stable mixed lytic and sclerotic metastatic lesion involving the right acetabulum and right ischial tuberosity. 3. Nonspecific subcutaneous fat reticulation of the right gluteal region may reflect contusion, resolving hematoma or cellulitis. Recommend correlation. 4. Left nephrolithiasis Reported By: Hua Figueroa MD Electronically Signed Date/Time: 09/09/191904 Technologist: KATHYA Dictated Date/Time: 09/09/191854 Transcribed Date/Time:CT Chest Abd Pelvis W [facility] Pt Name: NATALIE COSTA ComVibe Phys: Joanna Sainz MD [place] [address] : 1970 Age: 48 SEX:F [phone] Exam Date: 09/09/19 Status: DIS IN Acct: [id number] Loc: ONC Pt Unit #: [id number] Report #: [id number] CC: Petey Lyles Kumud MD CAT SCAN REPORT Order # Category/Exam [id number] CT/CT Chest Abd Pelvis W Con ([id number]): . Results CT OF THE CHEST, ABDOMEN AND PELVIS WITH IV CONTRAST INDICATION: History of breast cancer COMPARISON: CT the pelvis dated September 08, 2019 FINDINGS: CHEST: Lungs: There is a 3 mm pulmonary nodule within the anterior right upper lobe on image 27 of series 4. There is a 3 mm and 2 mm right middle lobe pulmonary nodule on image 33 of series 4. There is subsegmental volume loss within both lower lobes. Pleural space: No effusion. Mediastinum: No pathologically enlarged lymph nodes are evident. Axilla: Surgical clips are seen within the right axilla. ABDOMEN: Liver: No focal lesion. Gallbladder: Normal appearing. Pancreas: Normal. Adrenal glands: Normal. Spleen: Normal. Kidneys and ureters: There is a 2 mm nonobstructing calculus within the left mid kidney. The right kidney is normal- appearing. Vasculature: Normal. Lymph nodes:No lymphadenopathy. Free fluid in abdomen:No free fluid is evident. PELVIS: Small and large bowel: Normal Appendix:Normal Bladder: Normal. Rectal and perirectal soft tissues:Normal. Reproductive structures: Surgically absent Free fluid in pelvis: No free fluid is evident. Lymphadenopathy pelvis: No lymphadenopathy is evident. Osseous structures: The mixed lytic and osseous sclerotic lesion involving the right acetabulum and right ischial tuberosity similar to the most recent comparison. There is an additional osteolytic lesion involving the right aspect of the L2 vertebra on image 70 of the coronal series measuring 1.4 cm. There is a 1.9 cm osteolytic lesion involving theleft aspect of the T9 vertebral body with mild inferior and superior branch endplate compression fracture. Soft tissues:There is persistent reticulation of the subcutaneous fat overlying the right gluteal region. IMPRESSION: 1. 3 small pulmonary nodules within the right lung are nonspecific and may berelated to underlying granulomatous disease; however, early metastatic disease is not excluded. These lesions are below PET resolution threshold. Short-term CT follow-up in 6-8 weeks is recommended. 2.Osseous metastatic disease with mild superior and inferior endplate pathologic compression fracture of T9. There is osteolytic lesion of L2. There is a stable mixed lytic and sclerotic metastatic lesion involving the right acetabulum and right ischial tuberosity. 3. Nonspecific subcutaneous fat reticulation of the right gluteal region may reflect contusion, resolving hematoma or cellulitis. Recommendcorrelation. 4. Left nephrolithiasis Reported By: Hua Figueroa MD Electronically Signed Date/Time: 09/09/191904 Technologist: KATHYA Dictated Date/Time: 09/09/19 185 Transcribed Date/Time:CT Chest Abd Pelvis W Con [facility] MIRIAN COSTAAsya GAN : 1970 [facility] Pt Name: NATALIE COSTA ELVIA [address] Phys: [place]anna [place], [place] [address] : 1970 Age: 50 SEX:F [phone] Exam Date: 09/09/19 Status: DIS IN Acct: [id number] Loc: ONC Pt Unit #: [id number] Report #: [id number] CC: Petey Lyles Kumud MD CAT SCAN REPORT Order # Category/Exam [id number] CT/CT Chest Abd Pelvis W Con ([id number]): . Results ADDENDUM ADDENDUM #1 Addendum: As noted on initial report, there is inflammatory stranding seen anterior to the right hip and right iliac bone with asymmetric diminished attenuation of the proximal thigh and pelvic musculature which is similar to prior study. Findings are most likely attributable to post treatment changes. No discernible discrete mass is seen in this region to correspond to area palpable concern, and no mass seen within the right anterolateralpelvis. Findings discussed with Dr. Sainz. ORIGINAL REPORT CT OF THE CHEST, ABDOMEN AND PELVIS WITH IV CONTRAST INDICATION: History of breast cancer COMPARISON: CT the pelvis dated September 08, 2019 FINDINGS: CHEST: Lungs: There is a 3 mm pulmonary nodule within the anterior right upper lobe on image 27 of series 4.There is a 3 mm and 2 mm right middle lobe pulmonary nodule on image 33 of series 4. There is subsegmental volume loss within both lower lobes. Pleural space: No effusion. Mediastinum: No pathologically enlarged lymph nodes are evident. Axilla: Surgical clips are seen within the right axilla. ABDOMEN:Liver: No focal lesion. Gallbladder: Normal appearing. Pancreas: Normal. Adrenal glands: Normal. Spleen: Normal. Kidneys and ureters: There is a 2 mm nonobstructing calculus within the left mid kidney.The right kidney is normal-appearing. Vasculature: Normal. Lymph nodes:No lymphadenopathy. Free fluid in abdomen:No free fluid is evident. PELVIS: Small and large bowel: Normal Appendix:Normal Bladder:Normal. Rectal and perirectal soft tissues:Normal. Reproductive structures: Surgically absent Free fluid in pelvis: No free fluid is evident. Lymphadenopathy pelvis: No lymphadenopathy is evident. Osseous structures: The mixed lytic and osseous sclerotic lesion involving the right acetabulum andrightischial tuberosity similar to the most recent comparison. There is an additional osteolytic lesion involving the right aspect of the L2 vertebra on image 70 of the coronal series measuring 1.4 cm. There is a 1.9 cm osteolytic lesion involving the left aspect of the T9 vertebral body with mild inferiorand superior branch endplate compression fracture. Soft tissues:There is persistent reticulation of the subcutaneous fat overlying the right gluteal region. IMPRESSION: 1. 3 small pulmonary nodules within the right lung are nonspecific and may be related to underlyinggranulomatous disease; however, early metastatic disease is not excluded. These lesions are below PET resolution threshold. Short-termCT follow- up in 6-8 weeks is recommended. 2. Osseous metastatic disease with mild superior and inferior endplate pathologic compression fracture of T9. There is osteolytic lesion of L2. There is a stable mixed lytic and sclerotic metastatic lesion involving the right acetabulum and right ischial tuberosity. 3. Nonspecific subcutaneous fat reticulation of the right gluteal region may reflect contusion, resolving hematoma or cellulitis. Recommend correlation. 4. Left nephrolithiasis Addendum Dictated By: Nickolas Gonzales MD AddendumElectronically Signed Date/Time: 08/19/211557 Technologist: KATHYA Dictated Date/Time: 08/19/2103/02/1554 Transcribed Date/Time: / Tobacco Flavorer: DAVI CC: Petey Lyles Kumud MD CT OF THE CHEST, ABDOMEN AND PELVIS WITH IV CONTRAST INDICATION: History of breast cancer COMPARISON: CTthe pelvis dated September 08, 2019 FINDINGS: CHEST: Lungs: There is a 3 mm pulmonary nodule within the anterior right upper lobe on image 27 of series 4. There is a 3 mm and 2 mm right middle lobe pulmonarynodule on image 33 of series 4. There is subsegmental volume loss within both lower lobes. Pleural space: No effusion. Mediastinum: No pathologically enlarged lymph nodes are evident. Axilla: Surgical clips are seen within the right axilla. ABDOMEN: Liver: No focal lesion. Gallbladder: Normal appearing. Pancreas: Normal. Adrenal glands: Normal. Spleen: Normal. Kidneys and ureters: There is a 2 mm nonobstructing calculus within the left mid kidney. The right kidney is normal-appearing. Vasculature: Normal. Lymph nodes:No lymphadenopathy. Free fluid in abdomen:No free fluid is evident. PELVIS: Small a nd large bowel: Normal Appendix:Normal Bladder: Normal. Rectal and perirectal soft tissues:Normal. Reproductive structures: Surgically absent Free fluid in pelvis: No free fluid is evident. Lymphadenopathy pelvis: No lymphadenopathy is evident. Osseous structures: The mixed lytic and osseous scleroticlesion involving the right acetabulum andright ischial tuberosity similar to the most recent comparison. There is an additional osteolytic lesion involving the right aspect of the L2 vertebra on image 70 of the coronal series measuring 1.4 cm. There is a 1.9 cm osteolytic lesion involving the left aspect of the T9 vertebral body with mild inferior and superior branch endplate compression fracture. Soft tissues:There is persistent reticulation of the subcutaneous fat overlying the right gluteal region. IMPRESSION: 1. 3 small pulmonary nodules within the right lung are nonspecific and may be related to underlyinggranulomatous disease; however, early metastatic disease is not excluded. These lesions are below PET resolution threshold. Short-term CT follow-up in 6-8 weeks is recommended. 2. Osseous metastatic disease with mild superior and inferior endplate pathologic compression fracture of T9. There is osteolytic lesion of L2. There is a stable mixed lytic and sclerotic metastatic lesion involving the right acetabulum and right ischial tuberosity. 3. Nonspecific subcutaneous fat reticulation of the right gluteal region may reflect contusion, resolving hematoma or cellulitis. Recommend correlation. 4. Left nephrolithiasis Reported By: Hua Figueroa MD Electronically Signed Date/Time: 09/09/19 190 Technologist: KATHYA Dictated Date/Time: 09/09/19 1855 Transcribed Date/Time:[facility] Pt Name: NATALIE COSTA [employer]Vibe Phys: Mahsa Booth DO *[place] [address] : 1970 Age: 48 SEX:F [phone] Exam Date: 09/09/19 Status: ADM IN Acct: [id number] Loc: ONC Pt Unit #: [id number] Report #: [id number] CC: Petey Lyles DO *r ULTRASOUND REPORT Order # Category/Exam [id number] ULT/US Gallbladder RUQ ([id number]): . Results GALLBLADDER ULTRASOUND: Date: 09/09/2019 HISTORY: Elevated transaminase, elevated LFTs. FINDINGS: The liver and pancreas are normal. There is a prominent right renal pelvis without paxton hydronephrosis or renal mass. No gallstones, gallbladder wall thickening, or pericholecystic fluid seen. The common duct measures 6.0 mm in diameter. No free fluid is seen in Morison's pouch. IMPRESSION: No significant abnormalities are identified. POS: OFF Reported By: William Bazan MD Electronically Signed Date/Time: 09/09/1956 Technologist: [email or web address] Dictated Date/Time: 09/09/19830 Transcribed Date/Time: 09/09/19 09US [facility] Pt Name: NATALIE COSTA [employer] Phys: [place] [address] : 1970 Age: 48 SEX:F [phone] Exam Date: 09/09/19 Status: DIS IN Ac ct: [id number] Loc: ONC Pt Unit #: [id number] Report #: [id number] CC: Petey Lyles DO *r ULTRASOUND REPORT Order # Category/Exam [id number] ULT/US Gallbladder RUQ ([id number]): . Results GALLBLADDER ULTRASOUND: Date: 09/09/2019 HISTORY: Elevated transaminase, elevated LFTs. FINDINGS: The liver and pancreas are normal. There is a prominent right renal pelvis without paxton hydronephrosis or renal mass. No gallstones, gallbladder wall thickening, or pericholecystic fluid seen. The common duct measures 6.0 mm in diameter. No free fluid is seen in Morison's pouch. IMPRESSION: No significant abnormalities are identified. POS: OFF Reported By: William Bazan MD Electronically Signed Date/Time: 09/09/1956 Technologist: VSS Dictated Date/Time: 09/09/19830 Transcribed Date/Time: 09/09/19 09CT Pelvis W [facility] Pt Name: NATALIE COSTA Acquisio Phys: Maryam [place] [address] : 1970 Age: 48 SEX:F [phone] Exam Date: 09/08/19 Status: REG ER Acct: [id number] Loc: ERS Pt Unit #: [id number] Report #: [id number] CC: Maryam Viera PA-C, MICHAEL JOSEPH MD CAT SCAN REPORT Order # Category/Exam [id number] CT/CT Pelvis W Con ([id number]): . Results CT PELVIS WITH IV CONTRAST: HISTORY: Abscess on the right buttock, drained by her in the morning today. The patient has a history of breast cancer. FINDINGS: No free air, free fluid or lymphadenopathy is seen in the pelvis. The patient is post hysterectomy. The urinary bladder is grossly unremarkable. There is sigmoid diverticulosis. A normal appearing appendix is noted. There are destructive bony changes involving the right hemipelvis, consistent with metastatic disease. There is induration of the fat of the right gluteal region, consistent with cellulitis. No loculated fluid collection is seen to suggest abscess formation. A few prominent inguinal lymph nodes are seen, measuring about 7 mm in short axis diameter. IMPRESSION: 1. Osseous metastatic disease. 2. Cellulitis of the right gluteal region. No definite evidence of abscess formation. 3. Sigmoid diverticulosis. POS: OFF Reported By: William Bazan MD Electronically Signed Date/Time: 09/08/19 1212 Technologist: KATHYA Dictated Date/Time: 09/08/19 1142 Transcribed Date/Time: 09/08/19 1200CT Pelvis W [facility] Pt Name: NATALIE COSTA [place] Phys: [place] [address] : 1970 Age: 48 SEX:F [phone] Exam Date: 09/08/19 Status: DIS IN Acct: [id number] Loc: ONC Pt Unit #: [id number] Report #: [id number] CC: Petey Lyles Kimberly PA-C CAT SCAN REPORT Order # Category/Exam [id number] CT/CT Pelvis W Con ([id number]): . Results CT PELVIS WITH IV CONTRAST: HISTORY: Abscess on the right buttock, drained by her in the morning today. The patient has a history of breast cancer. FINDINGS: No free air, free fluid or lymphadenopathy is seen in the pelvis. The patient is post hysterectomy. The urinary bladder is grossly unremarkable. There is sigmoid diverticulosis. A normal appearing appendix is noted. There are destructive bony changes involving the right hemipelvis, consistent with metastatic disease. There is induration of the fat of the right gluteal region, consistent with cellulitis. No loculated fluid collection is seen to suggest abscess formation. A few prominent inguinal lymph nodes are seen, measuring about 7mm in short axis diameter. IMPRESSION: 1. Osseous metastatic disease. 2. Cellulitis of the right gluteal region. No definite evidence of abscess formation. 3. Sigmoid diverticulosis. POS: OFF ReportedBy: William Bazan MD Electronically Signed Date/Time: 09/08/19 1212 Technologist: KATHYA Dictated Date/Time: 09/08/19 1142 Transcribed Date/Time: 09/08/19 1200
[2021-11-29] MEDS ORDERED: NA CHLORIDE 0.9% 1,000 ML ONE (23:39)
[2021-11-29] MEDS ORDERED: BISACODYL 10 MG RECTAL SUPP ONE (23:39)
[2021-11-29] MEDS ORDERED: LACTULOSE 20 GM/30 ML UCUP ONE (23:40)
--- NOTE | 2021-11-30 00:11 | ER ---
Nurse's Notes [facility] Name: Catalina Macdonald Age: 50 yrs Sex: Female : 1970 Arrival Date: 11/29/2021 Time: 22:32 Bed 11 Private MD: Diagnosis: Epigastric abdominal tenderness;Abdominal pain, unspecified Presentation: 11/29 23:08 Chief complaint: Spouse and/or significant other states: "She has been taking morphine tw5 because of the cancer but we were told that it can cause stomach problems and she has been having really bad constipation. She was crying in pain. She has not had a bowl movement in days.". Coronavirus screen: Vaccine status: Patient reports receiving the 2nd dose of the covid vaccine. Pfizewr. Ebola Screen: Patient negative for fever greater than or equal to 101.5 degrees Fahrenheit, and additional compatible Ebola Virus Disease symptoms Patient denies exposure to infectious person. Patient denies travel to an Ebola-affected area in the 21 days before illness onset. Initial Sepsis Screen: Does the patient meet any 2 criteria? No. Patient's initial sepsis screen is negative. Does the patient have a suspected source of infection? No. Patient's initial sepsis screen is negative. Risk Assessment: Do you want to hurt yourself or someone else? Patient reports no desire to harm self or others. Onset of symptoms was November 29, 2021. 23:08 Method Of Arrival: Ambulatory tw5 23:08 Acuity: CHELI 3 tw5 Triage Assessment: 23:11 General: Appears uncomfortable, Behavior is calm, cooperative, appropriate for age. tw5 Pain: Pain currently is 5 out of 10 on a pain scale. at worst was 10 out of 10 on a pain scale. GI: Reports constipation. 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 - Social history:: Smoking status: Patient denies any tobacco usage or history of. - Family history:: not pertinent. Screenin:12 Abuse screen: Denies threats or abuse. Denies injuries from another. Nutritional tw5 screening: No deficits noted. Tuberculosis screening: No symptoms or risk factors identified. Fall Risk None identified. Assessment: 23:15 Pain: Pain currently is 5 out of 10 on a pain scale. Neuro: No deficits noted. GI: tw5 Bowel sounds hypoactive in right upper quadrant, left upper quadrant, right lower quadrant and left lower quadrant Abd is soft X 4 quads. 23:42 General: Reports "I don't want any of this stuff. The pain is better than it was. I was tw5 just worried about the pain, I dont have it much anymore.". 11/30 00:04 General: patient refused interventionsa. tw5 Vital Signs: 11/29 23:08 BP 120 / 97; Pulse 117; Resp 18; Temp 98.6; Pulse Ox 99% ; Weight 58.97 kg; Height 5 tw5 ft. 5 in. (165.10 cm); Pain 08/18; 11/30 00:23 BP 110 / 73; Pulse 104; Resp 17; Pulse Ox 100% ; vc1 11/29 23:08 Body Mass Index 21.63 (58.97 kg, 165.10 cm) tw5 ED Course: 11/29 22:32 Patient arrived in ED. bp1 23:03 Yumiko Elizabeth is Primary Nurse. tw5 23:10 Triage completed. tw5 23:11 Arm band placed on. tw5 23:12 Placed in gown. Pulse ox on. NIBP on. Door closed. Noise minimized. Lights dimmed. Warm tw5 blanket given. Verbal reassurance given. 23:25 Joe Baez MD is Attending Physician. [facility] 11/30 00:24 No provider procedures requiring assistance completed. Patient did not have IV access vc1 during this emergency room visit. Administered Medications: 00:03 Not Given (Patient Refused): NS 0.9% 1000 ml IV at 1 bolus Per protocol; 1000 mL bolus tw5 00:03 CANCELLED (Patient Refused): Lactulose 30 grams 45 ml PO once tw5 00:03 Not Given (Patient Refused): Dulcolax (bisacodyl) Suppository 10 mg NV once tw5 Medication: 11/29 23:12 VIS not applicable for this client. tw5 Outcome: 11/30 00:10 Discharge ordered by . ky 00:24 Discharged to home via wheelchair, with significant other. vc1 00:24 Condition: good 00:24 Discharge instructions given to patient, significant other, Instructed on discharge instructions, follow up and referral plans. Demonstrated understanding of instructions, follow-up care. 00:24 Patient left the ED. vc1 Signatures: Joe Baez MD MD cha Paniauga, Brittany bp1 Wood, Tiffany tw5 Saundra Alexandre RN RN vc1
--- NOTE | 2021-11-30 00:12 | EDPHYS ---
Physician Documentation [facility] Name: Catalina Macdonald Age: 50 yrs Sex: Female : 1970 Arrival Date: 11/29/2021 Time: 22:32 Bed 11 Private MD: ED Physician Joe Baez HPI: 11/30 00:05 This 50 yrs old Female presents to ER via Ambulatory with complaints of ky Constipation, Abdominal Pain. 00:05 The patient presents with abdominal pain in the epigastric area, in the upper abdomen. ky Onset: The symptoms/episode began/occurred just prior to arrival. The symptoms do not radiate. Associated signs and symptoms: Pertinent positives: nausea and vomiting, constipation. The symptoms are described as crampy, steady. Modifying factors: The symptoms are alleviated by nothing, the symptoms are aggravated by nothing. Severity of pain: At its worst the pain was mild in the emergency department the pain has resolved. Unable to obtain HPI due to. The patient has not experienced similar symptoms in the past. 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 - Social history:: Smoking status: Patient denies any tobacco usage or history of. - Family history:: not pertinent. ROS: 11/30 00:05 Constitutional: Negative for fever, chills, and weight loss, Eyes: Negative for injury, ky pain, redness, and discharge, ENT: Negative for injury, pain, and discharge, Neck: Negative for injury, pain, and swelling, Cardiovascular: Negative for chest pain, palpitations, and edema, Respiratory: Negative for shortness of breath, cough, wheezing, and pleuritic chest pain, Back: Negative for injury and pain, : Negative for injury, bleeding, discharge, and swelling, MS/Extremity: Negative for injury and deformity, Skin: Negative for injury, rash, and discoloration, Neuro: Negative for headache, weakness, numbness, tingling, and seizure, Psych: Negative for depression, anxiety, suicide ideation, homicidal ideation, and hallucinations, Allergy/Immunology: Negative for hives, rash, and allergies, Endocrine: Negative for neck swelling, polydipsia, polyuria, polyphagia, and marked weight changes, Hematologic/Lymphatic: Negative for swollen nodes, abnormal bleeding, and unusual bruising. Abdomen/GI: Positive for abdominal pain, of the epigastric area, right upper quadrant and left upper quadrant. Exam: 00:05 Constitutional: This is a well developed, well nourished patient who is awake, alert, ky and in no acute distress. Head/Face: Normocephalic, atraumatic. Eyes: Pupils equal round and reactive to light, extra-ocular motions intact. Lids and lashes normal. Conjunctiva and sclera are non-icteric and not injected. Cornea within normal limits. Periorbital areas with no swelling, redness, or edema. ENT: Nares patent. No nasal discharge, no septal abnormalities noted. Tympanic membranes are normal and external auditory canals are clear. Oropharynx with no redness, swelling, or masses, exudates, or evidence of obstruction, uvula midline. Mucous membranes moist. Neck: Trachea midline, no thyromegaly or masses palpated, and no cervical lymphadenopathy. Supple, full range of motion without nuchal rigidity, or vertebral point tenderness. No Meningismus. Chest/axilla: Normal chest wall appearance and motion. Nontender with no deformity. No lesions are appreciated. Cardiovascular: Regular rate and rhythm with a normal S1 and S2. No gallops, murmurs, or rubs. Normal PMI, no JVD. No pulse deficits. Respiratory: Lungs have equal breath sounds bilaterally, clear to auscultation and percussion. No rales, rhonchi or wheezes noted. No increased work of breathing, no retractions or nasal flaring. Abdomen/GI: Soft, non-tender, with normal bowel sounds. No distension or tympany. No guarding or rebound. No evidence of tenderness throughout. Back: No spinal tenderness. No costovertebral tenderness. Full range of motion. Skin: Warm, dry with normal turgor. Normal color with no rashes, no lesions, and no evidence of cellulitis. MS/ Extremity: Pulses equal, no cyanosis. Neurovascular intact. Full, normal range of motion. Neuro: Awake and alert, GCS 15, oriented to person, place, time, and situation. Cranial nerves II-XII grossly intact. Motor strength 5/5 in all extremities. Sensory grossly intact. Cerebellar exam normal. Normal gait. Psych: Awake, alert, with orientation to person, place and time. Behavior, mood, and affect are within normal limits. Vital Signs: 11/29 23:08 BP 120 / 97; Pulse 117; Resp 18; Temp 98.6; Pulse Ox 99% ; Weight 58.97 kg; Height 5 tw5 ft. 5 in. (165.10 cm); Pain 5/10; 11/30 00:23 BP 110 / 73; Pulse 104; Resp 17; Pulse Ox 100% ; vc1 11/29 23:08 Body Mass Index 21.63 (58.97 kg, 165.10 cm) tw5 MDM: 11/29 23:25 Patient medically screened. ky 11/30 00:07 Differential diagnosis: acute coronary syndrome, cholecystitis, Cholelithiasis, ky diverticulitis, gastritis, GI Bleed, non-specific abd pain, pancreatitis, Peptic Ulcer Disease, Ureterolithiasis, urinary tract infection. Data reviewed: vital signs, nurses notes. Data interpreted: quality assurance monitor body: rate is 117 beats/min, rhythm is regular, Pulse oximetry: on room air. Counseling: I had a detailed discussion with the patient and/or guardian regarding: the historical points, exam findings, and any diagnostic results supporting the discharge/admit diagnosis. ED course: many test ordered , pt refuses all , will follow up with her doctor. 11/30 00:09 Order name: EKG; Complete Time: 00:10 [facility] 11/30 00:09 Order name: EKG - Nurse/Tech ky Administered Medications: 00:03 Not Given (Patient Refused): NS 0.9% 1000 ml IV at 1 bolus Per protocol; 1000 mL bolus tw5 00:03 CANCELLED (Patient Refused): Lactulose 30 grams 45 ml PO once tw5 00:03 Not Given (Patient Refused): Dulcolax (bisacodyl) Suppository 10 mg WI once tw5 Disposition Summary: 11/30/21 00:10 Discharge Ordered Location: Home ky Problem: new ky Symptoms: have improved ky Condition: Stable ky Diagnosis - Epigastric abdominal tenderness ky - Abdominal pain, unspecified ky Followup: ky - With: Private Physician - When: 2 - 3 days - Reason: Recheck today's complaints, Continuance of care, Re-evaluation by your physician Discharge Instructions: - Discharge Summary Sheet ky - Abdominal Pain, Adult ky - Constipation, Adult ky - Pain Without a Known Cause ky - Constipation, Adult, [id number] ky - Abdominal Pain, Adult, [id number] ky Forms: - Medication Reconciliation Form ky - Thank You Letter ky - Antibiotic Education ky - Prescription Opioid Use [facility] Signatures: Dispatcher [employer] EDID Joe Baez MD MD cha Wood, Tiffany Corrections: (The following items were deleted from the chart) 00:03 11/29 23:27 IV Saline Lock ordered. [facility]11/30 00:03 08 23:27 Labs collected and sent ordered. [place] [id number] 11/30 00:03 11/29 23:27 Lactulose 30 grams 45 ml PO once ordered. [place] [id number] 11/30 00:03 11/29 23:31 Urine Dipstick-Ancillary ordered. [place] [id number] 11/30 00:03 11/29 23:31 Urine Test ordered. [place] [id number] 11/30 00:03 00:03 Lactulose 30 grams 45 ml PO once ordered.
[2021-11-30 02:58] VITALS: TEMP 98.6
[2021-11-30 03:00] VITALS: BP 110/73; O2SAT 100
== END 2021-11-30 00:24 | disposition home or self-care (01) ==
LOC: ER 22:30
DX: R10.816 Epigastric abdominal tenderness (principal); R10.12 Left upper quadrant pain; R10.11 Right upper quadrant pain
CPT/HCPCS: 99283; J7030